=== PATIENT | male | born 1945 | race Caucasian/White ===

== ENCOUNTER → 2019-10-15 16:38 | Outpatient (BNVA) | payer MEDICARE, OTHER, SELFPAY | PROVIDERS: Family Provider Internal Medicine; Visit Provider Nurse Practitioner Family | DX: R05 Cough (principal) | CPT/HCPCS: 71046; 87400; 87635 ==

== ENCOUNTER → 2022-06-27 09:59 | Outpatient (BNVA) | payer OTHER, SELFPAY | PROVIDERS: Family Provider Internal Medicine; PCP Family Medicine; Visit Provider Orthopaedic Surgery | DX: M54.50 Low back pain, unspecified (principal) | CPT/HCPCS: 72110; 99204 ==

== ENCOUNTER 2022-07-10 12:09 | Day surgery (SDC) | payer OTHER, SELFPAY ==
[2022-07-07 10:07] VITALS: BMI 27.0
--- NOTE | 2022-07-07 10:15 | ECG_ITS ---
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 Measurements Intervals [place] Rate: 68 P: 5 AL: 157 QRS: -7 QRSD: 95 T: 46 QT: 399 QTc: 427 Interpretive Statements SINUS RHYTHM WITH SINUS ARRHYTHMIA No previous ECG available for comparison Electronically Signed On 07-07-2022 17:02:04 BIOMATHEMATICIAN by Ines Messina M.D. [id number]
--- NOTE | 2022-07-07 14:36 | P.ANESASSM_ITS ---
Pre-Anesthetic Assessment Height/Weight: Height 1.73 m Weight 80.739 kg Operation Date: 07/10/22 15:00 Proposed Procedures p Neurostimulator Battery Exchange and lead removal 10780/20623/m54.50(Not Applicable) - DO bonilla Howe Stimulator lead Removal(Not Applicable) - Goldy Chavez DO Familial anesthetic complications: none Was Beta Karl taken within 24 hours: N/A Was Clonidine taken within 24 hours: N/A Social No alcohol and No tobacco Exam alert, oriented x 3, clear to auscultation bilaterally and regular rate & rhythm Airway Submandibular: within normal limits Cervical ROM: within normal limits Mallampati: Class II Dentition: full CV/HEM Hypertension Musc/skel Lower Back Pain Anesthetic Plan ASA status: 2 Anesthesia: General Medications/Allergies Home Medications Medication Instructions Recorded Confirmed Last Taken Type etodolac 400 mg tablet 400 mg PO BID 02/13/22 07/07/22 07/07/22 History tramadol 50 mg tablet 50 mg PO TID PRN pain #90 tabs 04/15/22 07/07/22 07/07/22 Rx Fiber Well PO QDAY 06/27/22 Unknown History acyclovir 200 mg capsule 200 mg PO QID 06/27/22 07/07/22 07/07/22 History losartan 25 mg tablet 25 mg PO DAILY 06/27/22 07/07/22 07/07/22 History Allergies Allergy/AdvReac Type Severity Reaction Status Date / Time finasteride [From Proscar] Allergy Severe ADR-Dizzine Verified 07/07/22 10:04 ss tamsulosin [From Flomax] Allergy Severe ADR-Dizzine Verified 07/07/22 10:04 ss [facility] Anesthesia Surgical History Status post hernia repair Family History Brother Cancer Social History Smoking and tobacco status: former smoker Data Anesthesia Cardiac Studies: No Data to Display
[2022-07-10] VITALS (11 sets, daily range): BP systolic 127–171; BP diastolic 58–109; PULSE 62–99; RESP 16–19; TEMP 36.1–36.6; O2SAT 96–99
--- NOTE | 2022-07-10 | XR_ITS ---
WS: [id number] XR thoracic spine 1V 88531 REASON FOR EXAM: removal of scs FINDINGS: Following removal of dorsal column stimulator, no radiopaque residual is identified over the lower th oracic spine. XR/XR thoracic spine 1V 26125 IMPRESSION: Status post dorsal column stimulator removal as above.
[2022-07-10] MEDS: sodium chloride 0.9% 1,000 ML 30 ML IV (12:35)
--- NOTE | 2022-07-10 13:08 | W.PM.OPSUD ---
Surgery/Procedure H&P Update DATE OF PROCEDURE: July 10, 2022 DATE H&P PERFORMED: 06/27/22 H&P UPDATE INFORMATION: I have reviewed H&P completed within last 30 days, I have examined patient prior to procedure and No changes to prior documentation PREOP DIAGNOSIS: Failed Hardware SCS PLANNED PROCEDURE: Operation Date: 07/10/22 15:00 Proposed Procedures p Stimulator lead Removal(Not Applicable) - Goldy Chavez DO
--- NOTE | 2022-07-10 13:31 | P.ANESUD_ITS ---
Pre-Anesthetic Update Pre-Anesthetic Assessment: Date of Surgery/Procedure: 07/10/22 Preop Maribell gnosis: Failed Hardware SCS Proposed Procedure: Operation Date: 07/10/22 15:00 Proposed Procedures p Stimulator lead Removal(Not Applicable) - Goldy Chavez, DO Any changes to Pre-Anesthetic Assessment?: No Last Intake: Intake Last Liquid Date 07/09/22 Last Liquid Time 18:00 Last Solid Date 07/09/22 Last Solid Time 18:00 Vitals: Temperature 97.6 F 07/10/22 12:26 Temperature Source Temporal Artery S can 07/10/22 12:26 Pulse Rate 94 07/10/22 12:26 Respiratory Rate 16 07/10/22 12:26 Blood Pressure 171/109 07/10/22 12:26 Blood Pressure Courtney n 129 07/10/22 12:26 Pulse Oximetry 97 07/10/22 12:26 Oxygen Delivery Me thod 07/10/22 12:26 Exam: Pre-Anes Outpt Exam: alert, oriented x 3, clear to auscultation bilaterally and regular rate & rhythm Cardiac Studies: No Data to Display
[2022-07-10] MEDS: ceFAZolin 2,000 MG in sodium chloride 0.9% (plus) 50 ML 100 MG IV (13:34)
[2022-07-10] MEDS: vancomycin 1,000 MG SDV 1000 MG XX (14:17)
--- NOTE | 2022-07-10 14:25 | SUR.OPER ---
1% LIDOCAINE WITH EPI 10ML WAS INJECTED INTO THE BACK.
--- NOTE | 2022-07-10 14:29 | P.OP_ITS ---
Operative Report Date of procedure: July 10, 2022 Pre-op diagnosis: Preop Diagnosis Failed Hardware SCS Post-op diagnosis: same Procedure done: 1. Removal of neurostimulator 2. Removal for battery of neurostimulator Surgeon: Goldy Chavez Line And Frame Poler: Sabino Bowens Line And Frame Poler: The salesperson surgical appliances, Sabino Bowens, OLIVER was needed for his expertise under the microscope. He was important and necessary throughout the procedure to complete in a safe and timely manner. He assisted with patient positioning prepping and draping tissue retraction suctioning of the operative field protection of the dural sac and tissue closure Procedure: 1. Removal of neurostimulator 2. Removal for battery of neurostimulator Patient is brought to the operative suite after undergoing anesthesia patient was placed prone on the operating room table. All areas appear well-padded. Patient was prepped and draped in sterile fashion. Skin incision is made over the battery. Once the battery was identified it was removed. Once the battery was moved attention was then brought to the neurostimulator. The wires were identified and traced to where they were tied into the soft tissues. The sutures were then cut. And then the neurostimulator wires were then pulled through and the C-arm was brought in to ensure that the wires were completely removed. Once all the wires were completely removed C-arm was showed that this was true and there were no wires present.
[2022-07-10] MEDS: racepinephrine 0.5 mL Neb (14:49)
[2022-07-10] MEDS: dexamethasone 4 mg/mL INJ INJECTION (14:57)
--- NOTE | 2022-07-10 15:30 | ANE.PACU2 ---
Inpatient post-anesthesia follow up: Airway intact: Yes Vital signs: Temperature 98 F Pulse Rate 77 Respiratory Rate 17 Blood Pressure 160/74 Pulse Oximetry 97 Oxygen Delivery Me thod Room Air Oxygen Flow Rate 2 Fraction of Inspir ed Oxygen Hydration adequate: Yes Nausea and vomiting: No Pain level: 1 Mental status: Baseline
== END 2022-07-10 16:00 | disposition home or self-care (01) ==
PROVIDERS: Family Provider Family Medicine; PCP Family Medicine; Visit Provider Orthopaedic Surgery
PROC: (CPT 63661; principal; 2022-07-10 14:50)
DX: T85.193A Other mechanical complication of implanted electronic neurostimulator, generator, initial encounter (principal); Y83.8 Other surgical procedures as the cause of abnormal reaction of the patient, or of later complication, without mention of misadventure at the time of the procedure; I10 Essential (primary) hypertension; Z87.891 Personal history of nicotine dependence; Z79.82 Long term (current) use of aspirin
CPT/HCPCS: 63661; 63688; 72020; 76000; 93005; J0690; J1100; J2405; J2704; J3010; J3370; J7030

== ENCOUNTER → 2022-07-25 13:04 | Outpatient (BNVA) | payer OTHER, SELFPAY | PROVIDERS: Family Provider Family Medicine; PCP Family Medicine; Visit Provider Orthopaedic Surgery | DX: Z47.89 Encounter for other orthopedic aftercare (principal) | CPT/HCPCS: 99024 ==

== ENCOUNTER 2022-08-30 13:57 | Outpatient (CLI) | payer OTHER, SELFPAY ==
--- NOTE | 2022-08-30 14:30 | MR_ITS ---
WS: [id number] MRI LUMBAR SPINE NONCONTRAST TECHNIQUE: Sagittal T1, T2 and STIR imaging. Axial T1 and T2 imaging. CLINICAL INFORMATION: low back pain COMPARISON: MRI 6 018 FINDINGS: Mild lumbar curve. No acute compression. 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 No a cute compression fractures. Grade 1 anterolisthesis measures 12 mm unchanged. Lumbar scoliosis. Small disc protrusions T11-T12 and T12-L1. L1-L2: Mild disc bulging with slight narrowing of the LEFT greater than RIGHT subarticular recess. Mo derate facet arthropathy. Moderate LEFT foraminal narrowing. Moderate facet arthropathy. L2-L3: Mild disc bulging with osteophytic ridging. Narrowing of the RIGHT greater than LEFT subarticu lar recess. Mild bilateral foraminal narrowing. Moderate facet arthropathy. L3-L4: Mild disc bulging with osteophytic ridging. Narrowing of the RIGHT subarticular recess. Modera te facet arthropathy. Moderate RIGHT foraminal narrowing. LEFT foramen is patent. L4-L5: Mild disc bulging with osteophytic ridging. Slight effacement of ventral thecal sac. Moderate to advanced facet arthropathy. Moderate RIGHT greater than LEFT foraminal narrowing. L5-S1: Grade 2 anterolisthesis with spondylolysis. Moderate to severe bilateral foraminal narrowing. Slight impingement on the traversing RIGHT greater than LEFT S1 nerve roots. Visualized pelvic bony structures: Normal. Paravertebral soft tissues: Normal. RIGHT renal cyst measuring 5.2 cm MR/MR lumbar spine wo con* [id number] IMPRESSION:Overall no significant interval changes since MRI 2018 1. Grade 2 anterolisthesis L5 on S1 with degenerative spondylolysis. This is s table compared to previous measuring 12 mm. 2. Moderate to severe bilateral L5-S1 bony foraminal narrowing. Disc osteophyt e complex L5-S1 impinges the traversing right S1 nerve root unchanged. 3. Right pericentral disc osteophyte protrusion L3-4 impinges the traversing R IGHT L4 nerve root and exiting right L3 nerve root with moderate right foramina l narrowing. This is unchanged. 4. Moderate bilateral L4-5 foraminal narrowing contacts the exiting L4 nerve r oots bilaterally. 5. Moderate to advanced facet arthropathy L3-L4 L4-L5 and L5-S1. 6. Lumbar scoliosis.
== END 2022-08-30 13:58 | disposition home or self-care (01) ==
PROVIDERS: PCP Family Medicine; Visit Provider Orthopaedic Surgery
DX: M51.26 Other intervertebral disc displacement, lumbar region (principal); M47.816 Spondylosis without myelopathy or radiculopathy, lumbar region; M41.86 Other forms of scoliosis, lumbar region
CPT/HCPCS: 72148

== ENCOUNTER → 2022-09-05 13:26 | Outpatient (BNVA) | payer OTHER, SELFPAY | PROVIDERS: Family Provider Family Medicine; PCP Family Medicine; Visit Provider Orthopaedic Surgery | DX: Z78.9 Other specified health status (principal) | CPT/HCPCS: 99024; 99212 ==

== ENCOUNTER → 2022-09-07 09:58 | Outpatient (BNVA) | payer OTHER, SELFPAY | PROVIDERS: Family Provider Family Medicine; PCP Family Medicine; Visit Provider Orthopaedic Surgery | DX: M48.061 Spinal stenosis, lumbar region without neurogenic claudication (principal) | CPT/HCPCS: 99024; 99214 ==

== ENCOUNTER → 2022-10-26 08:29 | Outpatient (BNVA) | payer OTHER, SELFPAY | PROVIDERS: Family Provider Family Medicine; PCP Family Medicine; Visit Provider Orthopaedic Surgery | DX: M48.062 Spinal stenosis, lumbar region with neurogenic claudication (principal); Z01.818 Encounter for other preprocedural examination | CPT/HCPCS: 36415; 80048; 85025; 99214 ==

== ENCOUNTER 2022-11-13 10:52 | Outpatient (CLI) | payer OTHER, SELFPAY | END 2022-11-13 10:53 | disposition home or self-care (01) | LOC: RT 11-16 10:53 | PROVIDERS: PCP Family Medicine; Visit Provider Orthopaedic Surgery | DX: Z01.810 Encounter for preprocedural cardiovascular examination (principal) | CPT/HCPCS: 93005 ==

== ENCOUNTER 2022-11-20 13:38 | Inpatient (IN) | payer OTHER, SELFPAY ==
--- NOTE | 2022-11-13 08:50 | ECG_ITS ---
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 Measurements Intervals [place] Rate: 60 P: -9 ND: 167 QRS: -22 QRSD: 85 T: 18 QT: 390 QTc: 392 Interpretive Statements SINUS RHYTHM BORDERLINE LEFT AXIS DEVIATION [QRS AXIS < -20] Compared to ECG 07/07/2022 10:15:09 Sinus arrhythmia no longer present Electronically Signed On 11-14-2022 0:25:20 CDT by Annabel Aldridge M.D. [id number]
--- NOTE | 2022-11-13 09:01 | ANES.PREANE2 ---
Pre-Anesthetic Assessment Height/Weight: Height 1.73 m Weight 75.75 kg Operation Date: 11/20/22 14:25 Proposed Procedures p L3 to pelvis fusion with decompression from L3-S1,49274,11091g1,62618,93910,2284,M48.062(Not Applicable) - Goldy Chavez DO s Lumbar Spine Decompression(Not Applicable) - Goldy Chavez DO Familial anesthetic complications: None Social No alcohol and No tobacco Exam alert, oriented x 3, clear to auscultation bilaterally and regular rate & rhythm Airway Mallampati: Class I Dentition: full CV/HEM Hypertension Anesthetic Plan ASA status: 2 Anesthesia: General Other: A-line Risk of > 500 ml blood loss (7ml/kg in children): Yes, adequate IV access and fluids planned Medications/Allergies Home Medications Medication Instructions Recorded Confirmed Last Taken Type etodolac 400 mg tablet 400 mg PO BID 02/13/22 11/13/22 11/13/22 History Fiber Well 1 tab PO QDAY 06/27/22 11/13/22 11/13/22 History losartan 25 mg tablet 25 mg PO DAILY 06/27/22 11/13/22 11/13/22 History tramadol 50 mg tablet 50 mg PO TID PRN pain #90 tabs 07/11/22 11/13/22 11/13/22 Rx cholecalciferol (vitamin D3) 50 50 mcg PO DAILY 10/31/22 11/13/22 11/13/22 History mcg (2,000 unit) capsule Allergies Allergy/AdvReac Type Severity Reaction Status Date / Time finasteride [From Proscar] Allergy Severe ADR-Dizzine Verified 11/13/22 08:36 ss tamsulosin [From Flomax] Allergy Severe ADR-Dizzine Verified 11/13/22 08:36 ss [facility] Anesthesia Surgical History Status post hernia repair Family History Brother Cancer Social History Smoking and tobacco status: former smoker Data Anesthesia Cardiac Studies: No Data to Display
[2022-11-20] VITALS (26 sets, daily range): BP systolic 105–157; BP diastolic 50–96; PULSE 57–91; RESP 12–24; TEMP 36.3–37.8; O2SAT 92–100
--- NOTE | 2022-11-20 | XR_ITS ---
WS: [id number] Lumbar spine, C-arm fluoroscopy, 11/20/2022 Clinical Data: thoracic and lumbar spine fusion Comparison: Lumbar spine, 06/27/2022 Findings: Dr. Chavez performed on a extensive thoracolumbar sacral fusion with bilateral pedicle screws and conn ecting rods. There are oblique screws fusing the SI joints. XR/XR lumbar spine 2-3V* [id number] Impression: Posterior thoracolumbar sacral fusion.
--- NOTE | 2022-11-20 08:19 | P.HPUD_ITS ---
Surgery/Procedure H&P Update DATE OF PROCEDURE: November 20, 2022 DATE H&P PERFORMED: 10/26/22 H&P UPDATE INFORMATION: I have reviewed H&P completed within last 30 days, I have examined patient prior to procedure and No changes to prior documentation PREOP DIAGNOSIS: Lumbar stenosis with neurogenic claudication PLANNED PROCEDURE: Operation Date: 11/20/22 11:40 Proposed Procedures p T10 to pelvis fusion with decompression from L3- S1,39991,00453d3,72510,99631,2284,M48.062(Not Applicable) - DO bonilla Hoew Lumbar Spine Decompression(Not Applicable) - Goldy Chavez DO
[2022-11-20] MEDS: sodium chloride 0.9% 1,000 ML 30 ML IV (08:22)
[2022-11-20] MEDS: ceFAZolin 2,000 MG in sodium chloride 0.9% (plus) 50 ML 100 MG IV ×2 (09:09→17:28)
[2022-11-20] MEDS: lidocaine-epi 1% 20 mL INJ INJECTION (09:51)
[2022-11-20] MEDS: vancomycin 1,000 MG SDV 1000 MG XX (09:51)
--- NOTE | 2022-11-20 09:54 | P.ANESUD_ITS ---
Pre-Anesthetic Update Pre-Anesthetic Assessment: Date of Surgery/Procedure: 11/20/22 Preop Maribell gnosis: Lumbar stenosis with neurogenic claudication Proposed Procedure: Operation Date: 11/20/22 11:40 Proposed Procedures p T10 to pelvis fusion with decompression from L3- S1,22648,06002y0,90845,12487,2284,M48.062(Not Applicable) - Goldyteto Chavez, DO s Lumbar Spine Decompression(Not Applicable) - Goldyteto Chavez, DO Any changes to Pre-Anesthetic Assessment?: No Last Intake: Intake Last Liquid Date 11/19/22 Last Liquid Time 19:30 Last Solid Date 11/19/22 Last Solid Time 16:30 Labs Last 48hrs: Blood Bank 11/20/22 08:35 Blood Type A Positive Rho(D) Type Positive Antibody Screen Negative Vitals: Temperature 97.9 F 11/20/22 08:18 Temperature Source Temporal Artery S can 11/20/22 08:18 Pulse Rate 91 11/20/22 08:18 Respiratory Rate 16 11/20/22 08:18 Blood Pressure 145/96 11/20/22 08:18 Blood Pressure Courtney n 112 11/20/22 08:18 Pulse Oximetry 96 11/20/22 08:18 Oxygen Delivery Me thod Room Air 11/20/22 08:18 Exam: Pre-Anes Outpt Exam: alert, oriented x 3, clear to auscultation bilaterally and regular rate & rhythm Cardiac Studies: No Data to Display
[2022-11-20] MEDS: heparin, porcine 1,000 unit/mL INJ 10 mL 10000 UNIT IRRIGATION (12:00)
--- NOTE | 2022-11-20 13:31 | P.OP_ITS ---
Operative Report Date of procedure: November 20, 2022 Pre-op diagnosis: Preop Diagnosis Lumbar stenosis with neurogenic claudication Procedure: 1.? T10 to pelvis posterior fusion 2. T10 to S1 instrumentation 3. Lumbopelvic instrumentation 4. Right open SI joint fusion 5. Left open SI joint fusion 6. L3/4 laminectomy with partial facetectomy 7. L4/5 laminectomy with partial facetectomy 8. L5/S1 laminectomy with partial facetectomy 9. computer navigation/ stereotactic of spine 10. Bone marrow aspirate right iiac crest 11. Use of autograft 12. use of allograft Patient is brought to the operative suite.? After undergoing anesthesia, the patient had neuro monitoring attached.? Patient was then placed in the prone position on the Faustino table.? All areas of impingement were well-padded.? Patient was then prepped and draped in the normal sterile fashion.? ?Skin incision was then made over the [id number].? Subperiosteal dissection was made out to the transverse processes of T10, T11, T12, L1, L2, L3 and L4 and L5 and out to the sacral ala's and dissecting out the sacroiliac joints.? The [employer] bone marrow aspirate kit was used to aspirate bone marrow aspirate from the right iliac crest.? This was done by using the sharp probe to open up the bone.? Aspiration was performed and then the blunt probe was then used to d issect down to through the bone tunnel.? An aspirating well drawn back a millimeter approximately 20 cc of bone marrow aspirate was used.? And mixed with the allograft and autograft bone that will be used. Extension was brought to placing the pins for the computer navigation fiducial.? This was done by placing 2 iliac crest pins in the right side.? These pins were later removed within the case.? Skin incision made in 2 pins were placed fiducial was attached to these 2 pins.? And then the C-arm was brought in and spun around the patient and the information from the C-arm was then loaded into the computer through the fiducials.? And later used to place the pedicle screws. The technique for placing the pedicle screws was to use a drill followed by the gearshift probe linked to computer navigation.? Followed by the ball probe to feel the superior inferior medial lateral mitchell of the pedicles.? Then placement of the screws linked to computer navigation.? Was done at each pedicle.? Screws were placed at T10 bilaterally, T11 bilaterally, T12 bilaterally, L1 bilaterally, L2 bilaterally, L 3 bilaterally and L4? bilaterally, L5 bilaterally and S1 bilaterally. Extension was brought to placing the iliac screws.? This was done by using the gearshift linked to computer navigation gearshift was placed just distal to the S1 foramen and lateral.? Was driven through the sacral ala across the iliosacral joint and into the iliac crest.? This was done bilaterally.? And then a 80 mm 9.5 mm iliac screw on the left and a 90 mm screw on the right was placed. Next attention was brought to doing the open SI joint fusions on both the right and the left side.? This was done by identifying the SI joint scraping out the SI joint and packing it with bone graft as well as passing a wire across to the iliac joint that has bone graft capabilities the wire was then drilled and bone graft was packed into this hole and then the screw which is in sacroiliac screw was brought across the joint fusing the joint.? This was done on both the right and the left sides. Next attention was brought to performing the laminectomy of L3.? This was done using the high-speed bur Kerrisons and curettes.? Once the lamina was removed and then attention was brought to performing a Rightpartial facetectomy .? This was done again using the high-speed bur curettes and Kerrisons.? The ligamentum flavum was taken down bilaterally from L3 to L4.? ? ? The L4 nerve was decompressed as it passed around the L4 pedicle.?? The L3 nerve was identified as it traversed through the L3/4 foramen.? ? Next attention was brought to performing the laminectomy of L4.? This was done using the high-speed bur Kerrisons and curettes.? Once the lamina was removed and then attention was brought to performing a Rightpartial facetectomy .? This was done again using the high-speed bur curettes and Kerrisons.? The ligamentum flavum was taken down bilaterally from L4 to L5.? ? ? The L5 nerve was decompressed as it passed around the L5 pedicle.?? The L4 nerve was identified as it traversed through the L4/5 foramen.? ? Next attention was brought to performing the laminectomy of L5.? This was done using the high-speed bur Kerrisons and curettes.? Once the lamina was removed and then attention was brought to performing a Rightpartial facetectomy .? This was done again using the high-speed bur curettes and Kerrisons.? The ligamentum flavum was taken down bilaterally from L5 to S1.? ? ? The S1 nerve was decompressed as it passed around the S1 pedicle.?? The L5 nerve was identified as it traversed through the L5/S1 foramen.? ? Attention was then brought to attaching the rods to the screws placed in the T10 bilaterally, T11 bilaterally, T12 bilaterally, L1 bilaterally, L2 bilaterally, L3 bilaterally, L4 bilaterally L5 bilaterally S1 bilaterally.? The sj was also connected to the screws providing the lumbopelvic aspect of the lumbopelvic fixation.? Caps were torqued into position. Locking the construct in place. Wound was copiously irrigated and then attention was brought to decorticating the facets and transverse processes laterally.? Bone that was taken down from the lamina was used along with osteoamp fibers and sponges were packed into the lateral gutters along the facet joints.? This was done bilaterally. Wound was then closed in a layered fashion starting with the thoracolumbar fascia.? 0-vicryl was used the sub cutaneous tissue was closed with 2-0 vicryl and skin with 4-0 monocryl.? Glue was then used to seal the skin and a steril dressing was applied.? Patient was then placed in the supine position. The endotracheal tube was removed and patient was transferred to the PACU in stable condition.
--- NOTE | 2022-11-20 13:55 | SUR.PHASEI ---
patient into pacu on floor bed, asleep. patient has hemovac drain in place, draining. simple mask in place with sat at 94%. patient has scd in place. maldonado draining clear yellow urine.
--- NOTE | 2022-11-20 14:08 | SUR.PHASEI ---
art line removed. hemovac drain emptied, 100ml blood.
--- NOTE | 2022-11-20 14:26 | ANE.PACU2 ---
Inpatient post-anesthesia follow up: Airway intact: Yes Vital signs: Temperature 98.5 F Pulse Rate 63 Respiratory Rate 18 Blood Pressure 105/57 Pulse Oximetry 97 Oxygen Delivery Me thod Nasal Cannula Oxygen Flow Rate 3 Fraction of Inspir ed Oxygen Hydration adequate: Yes Nausea and vomiting: No Pain level: 4 Mental status: Baseline
--- NOTE | 2022-11-20 14:26 | SUR.PHASEI ---
[facility] and working.
[2022-11-20] MEDS: ketorolac 30 mg/mL INJ IVP (17:28)
[2022-11-20] MEDS: lactated ringers 1,000 ML 90 ML IV (17:28)
[2022-11-20] MEDS: HYDROcodone-acetaminophen 5-325 mg Tablet PO (18:51)
[2022-11-20] MEDS: morphine 4 mg/mL SDV 1 mL 2 MG IVP (20:13)
[2022-11-20] MEDS: docusate sodium 100 mg Capsule PO (20:14)
--- NOTE | 2022-11-20 20:29 | PC.NURSE ---
Patient c/o pain not relieved by Toradol, Morphine or Dierks. Patient refusing to try Tramadol, stating that it won't help. Rates pain 8/. Dr. Chavez notified and ordered Oxy 10-20 mg q4hr PRN.
[2022-11-20] MEDS: oxyCODONE 5 mg IR Tab/Cap 10 MG PO (21:05)
[2022-11-20] MEDS: lanolin oint 7 gm 1 APPLIC TOPICAL (21:37)
[2022-11-21] VITALS (15 sets, daily range): BP systolic 92–162; BP diastolic 24–72; PULSE 66–85; RESP 15–18; TEMP 36.4–37.1; O2SAT 92–99
[2022-11-21] MEDS: ceFAZolin 2,000 MG in sodium chloride 0.9% (plus) 50 ML 100 MG IV ×2 (00:33→08:10)
[2022-11-21] MEDS: oxyCODONE-APAP 10-325 mg Tablet PO ×5 (00:34→19:29)
[2022-11-21] MEDS: lactated ringers 1,000 ML 90 ML IV ×2 (00:34→16:54)
[2022-11-21] MEDS: morphine 4 mg/mL SDV 1 mL 2 MG IVP (02:45)
[2022-11-21 06:39] LABS: Hemoglobin 9.2 g/dL (11.7-16.6)
--- NOTE | 2022-11-21 07:16 | P.PN_ITS ---
Subjective Subjective: POD 1 Patient resting comfortably with family present. Had a difficult night with pain control. Reports back and right leg pain. Denies shortness of breath, chest pain, headaches. Patient is difficult of hearing. Vitals/I&O/Wt Last Vital Signs Temp 98.4 F 11/21/22 05:20 Pulse 66 11/21/22 05:20 Resp 17 11/21/22 05:20 BP 92/51 11/21/22 05:52 Pulse Ox 95 11/21/22 05:20 O2 Del Method Nasal Cannula 11/21/22 05:20 O2 Flow Rate 1.5 11/21/22 05:20 11/20/22 11/21/22 11/21/22 22:59 06:59 14:59 Intake Total 50 / 788 689 / 1477 Output Total 370 / 1045 730 / 1775 Balance -320 / -257 -41 / -298 Physical Exam Narrative: Patient presents alert and oriented x3 with a good general appearance normal mood and affect. Normal coordination normal stability. Mild tenderness around the incisional site with the incision appear to be clean and dry with Hemovac intact. Reported 850 mL out Hemovac. No signs of erythema or drainage. No signs of infection. Patient denies any fevers or chills. 4/5 motor strength both lower extremities with negative straight leg raise bilaterally. Calves are supple no medial thigh tenderness. Pulses are 2+ at the dorsalis pedis and posterior tibial region. Good capillary refill throughout normal sensation light touch both lower extremities. Urinary Catheter Management: Hatfield: Cath Placed During This Visit: yes Reason for Continuing Indwelling Catheter: Required Immobilization for Trauma or Surgery or Anesthesia Urinary Catheter Date of Insertion: 11/20/22 Urinary Catheter Time of Insertion: 09:20 Data 11/21/22 06:19 A&P Assessment and plan (1) Acute blood loss as cause of postoperative anemia: Discussed with the family and the nursing staff to encourage incentive spirometry for pulmonary toilet. We will slowly make changes to his pain medication to ensure were not overmedicating. Physical therapy to work on mobilization. We will discontinue Hatfield catheter. We will leave the Hemovac drain to gravity. We will have criminal justice social worker consulted for placement or home health care. We will bolus 500 mL normal saline for his hypotension. Repeat H&H in the morning. (2) Status post lumbar spinal fusion: Attestations Medical Necessity Statement*: Continue to gain better pain control and stabilize medically Coding Level of Care Code Acute Code for Chg Fwd Diagnoses Acute blood loss as cause of postoperative anemia D62 Status post lumbar spinal fusion Z98.1
[2022-11-21] MEDS: sodium chloride 0.9% 500 ML 999 ML IV (07:27)
[2022-11-21] MEDS: cholecalciferol (vitamin D3) 1,000 unit Tablet 2000 UNIT PO (08:08)
[2022-11-21] MEDS: docusate sodium 100 mg Capsule PO ×2 (08:08→17:10)
[2022-11-21] MEDS: losartan 50 mg Tablet 25 MG PO (08:22)
--- NOTE | 2022-11-21 10:12 | PC.CHAP ---
Pastoral Care Encounter/Spiritual Assessment Type of Contact [] Declined bottling attendant visit [] Patient/Family/Request visit [] Outpatient visit [] Follow-up visit [] Physician referral [] Code/Alert [] Routine visit [] Staff referral [] Actively dying [x] Patient sleeping [] Family support [] [] Out of room [] Palliative care [] [] Receiving care in room [] Pre-surgical visit [] Trauma [] Long length of stay [] ICU visit [] Other: Relational/Emotional Strength [] Patient feels connected with others/family/visitors/staff [] Distress [] Loneliness/isolation [] Abandonment Spirituality of Patient [] Person of Cindy [] Attends Mosque of their Cindy [] Believes in Prayer [] Reads Bible or Yarsani materials [] There are Spiritual issues to be addressed Nurse Manager Interventions [] Prayer [] Active listening [] Non-anxious presence [] Spiritual/emotional support [] Crisis/trauma care [] Spiritual counseling [] Bereavement support [] Provided bereavement packet [] Provided Bible/devotional materials [] Provided toy/stuffed animal, coloring book to patient or family member [] Provided Communion [] Anointing/Sterling [] Salvation [] Completed spiritual assessment [] Other: Impact on Illness or Injury [] Angry [] Fearful [] Anxious [] Often cries [] Exhaustion [] Unable to work [] Unable to attend jainism [] Unable to walk/stand [] Unable to read [] Unable to drive [] Unable to eat/drink [] Unable to sleep [] Unable to be with family [] Patient intubated [] Other: Summary Time spent with patient
[2022-11-21] MEDS: ondansetron 2 mg/ML SDV 2 mL 4 MG IVP (10:37)
[2022-11-21] MEDS: ketorolac 30 mg/mL INJ IVP (16:58)
[2022-11-22] VITALS (19 sets, daily range): BP systolic 109–165; BP diastolic 57–84; PULSE 71–88; RESP 15–18; TEMP 36.8–37.9; O2SAT 85–99
[2022-11-22] MEDS: lactated ringers 1,000 ML 90 ML IV ×2 (01:13→14:20)
[2022-11-22] MEDS: oxyCODONE-APAP 10-325 mg Tablet PO ×2 (01:13→05:46)
[2022-11-22 04:54] LABS: Hemoglobin 8.3 g/dL (11.7-16.6)
--- NOTE | 2022-11-22 05:58 | PC.NURSE ---
Addendum entered by Caryl Aviles RN 11/22/22 06:16: 475 ml urine returned via straight cath. Original Note: Patient voided 200 ml earlier in shift. Patient has since attempt to void twice with no success. Bladder scan shows [address] Chavez ordered straight cath x1.
--- NOTE | 2022-11-22 06:35 | PM.PN ---
Subjective Subjective: POD 2 Patient resting comfortably. Appears very somnolent this morning no family is present. States he did minimal walking yesterday. Had a difficult time avoiding he was in and out cathed. Denies any dizziness lightheadedness headaches. Denies any shortness of breath or chest pain. Vitals/I&O/Wt Last Vital Signs Temp 99.4 F 11/22/22 04:00 Pulse 88 11/22/22 04:00 Resp 16 11/22/22 05:46 BP 110/57 11/22/22 04:00 Pulse Ox 92 11/22/22 04:00 O2 Del Method Room Air 11/22/22 04:00 O2 Flow Rate 0.5 11/21/22 08:50 11/21/22 11/21/22 11/22/22 14:59 22:59 06:59 Intake Total 1668 / 1668 748.5 / 2416.5 Output Total 225 / 225 525 / 750 535 / 1285 Balance 1443 / 1443 -525 / 918 213.5 / 1131.5 Physical Exam Narrative: Patient presents alert and oriented x3 with a good general appearance normal mood and affect.? Normal coordination normal stability.? Mild tenderness around the incisional site with the incision appear to be clean and dry with Hemovac intact.? Reported 250 mL out Hemovac.? No signs of erythema or drainage.? No signs of infection.? Patient denies any fevers or chills.? 4/5 motor strength both lower extremities with negative straight leg raise bilaterally.? Calves are supple no medial thigh tenderness.? Pulses are 2+ at the dorsalis pedis and posterior tibial region.? Good capillary refill throughout normal sensation light touch both lower extremities. GI: OTHER: Abdomen is soft slightly distended but positive bowel sounds throughout. Urinary Catheter Management: Hatfield: Cath Placed During This Visit: yes, but has since been removed by the nurse Reason for Continuing Indwelling Catheter: Decision to DC Catheter Urinary Catheter Date of Insertion: 11/20/22 Urinary Catheter Time of Insertion: 09:20 Date Urinary Catheter Removed: 11/21/22 Time Urinary Catheter Discontinued: 07:30 Data 11/22/22 04:19 A&P Assessment and plan (1) Status post lumbar spinal fusion: Discontinue Hemovac drain. Have physical therapy work on mobilization today. Reduce the oxycodone tens to 1 every 4-6 hours to see if that will help maintain better pain control and less overmedicated state. Up in the chair today. Will await child protective services social worker for placement. (2) Acute blood loss as cause of postoperative anemia: Attestations Medical Necessity Statement*: We will await placement. Coding Level of Care Code Acute Code for Chg Fwd Diagnoses Status post lumbar spinal fusion Z98.1 Acute blood loss as cause of postoperative anemia D62
[2022-11-22] MEDS: ketorolac 30 mg/mL INJ IVP ×2 (08:35→23:15)
[2022-11-22] MEDS: cholecalciferol (vitamin D3) 1,000 unit Tablet 2000 UNIT PO (08:48)
[2022-11-22] MEDS: docusate sodium 100 mg Capsule PO ×2 (08:48→18:32)
[2022-11-22] MEDS: losartan 50 mg Tablet 25 MG PO (08:48)
[2022-11-22] MEDS: ondansetron 2 mg/ML SDV 2 mL 4 MG IVP (09:41)
[2022-11-22] MEDS: alum-mag-hydroxide-sime 30 mL UDC PO (09:42)
--- NOTE | 2022-11-22 11:11 | PC.NURSE ---
hemavac-emptied 30ml of blood from hemavac. Hemavac removed from clients back. Client tolerated without difficulty.
[2022-11-22 15:59] LABS: Basophils # 0.1 10^3/uL (0.0-0.1); Basophils % 0.6 %; Eosinophils # 0.1 10^3/uL (0.0-0.8); Hematocrit 25.7 % (42.0-52.0); Hemoglobin 8.1 g/dL (11.7-16.6); Lymphocytes # 0.6 10^3/uL (0.8-4.8); Lymphocytes % 7.1 %; Mean Corpuscular HGB Conc 31.5 g/dL (30.0-36.0); Mean Corpuscular Hemoglobin 31.8 pg (28.0-34.0); Mean Corpuscular Volume 100.8 fl (80-94); Mean Platelet Volume 11.3 fL (7.4-10.4); Monocytes # 0.5 10^3/uL (0.2-0.9); Neutrophils # 7.03 10^3/uL (1.8-7.7); Neutrophils % 84.9 %; Nucleated Red Blood Cells % 0 %; Platelet Count 133 10^3/cmm (130-400); Red Blood Count 2.55 10^6/uL (4.1-5.3); Red Cell Distribution Width 12.7 % (12.1-15.1); White Blood Count 8.3 10^3/uL (4.0-10.0)
[2022-11-22] MEDS: oxyCODONE-APAP 10-325 mg Tablet 1 TAB PO (16:04)
[2022-11-22 16:13] LABS: Anion Gap 10.2 (5-19); Blood Urea Nitrogen 21 mg/dL (8-23); Carbon Dioxide 26 mmol/L (22-29); Chloride 103 mmol/L (98-107); Potassium 4.2 mmol/L (3.5-5.1)
[2022-11-22 16:18] LABS: Calcium 7.8 mg/dL (8.5-10.5); Glucose 121 mg/dL (65-115); Osmolality Calculated 284 mOsm/kg (285-295); Sodium 135 mmol/L (136-145)
--- NOTE | 2022-11-22 17:59 | PC.NURSE ---
Patient's at bedside states patient is type O negative and insists upon it. Educated on the observation of patient through transfusion and will note any reactions within the first 15 minutes as well as throughout the blood transfusion.
--- NOTE | 2022-11-22 18:11 | PC.NURSE ---
1 degree increase in temperature during transfusion, but patient states he feels fine and wants to continue.
[2022-11-22] MEDS: morphine 4 mg/mL SDV 1 mL 2 MG IVP (20:27)
[2022-11-23] VITALS (15 sets, daily range): BP systolic 131–160; BP diastolic 64–80; PULSE 56–83; RESP 15–22; TEMP 36.7–37.6; O2SAT 93–99
[2022-11-23] MEDS: oxyCODONE-APAP 10-325 mg Tablet 1 TAB PO ×2 (00:09→05:37)
--- NOTE | 2022-11-23 00:27 | XRR_ITS ---
PROCEDURE INFORMATION: Exam: XR Chest Exam date and time: 11/22/2022 11:43 PM Age: 76 years old Clinical indication: Shortness of breath; Prior surgery; Surgery date: 3-7 days post-operative; Surgery type: Spinal fusion 11/20/2022; Patient HX: SOB with bilateral crackles. ; Additional info: Sob/ crackles in lung bases TECHNIQUE: Imaging protocol: Radiologic exam of the chest. Views: 1 view. COMPARISON: CR XR chest 2V* [id number] 10/15/2019 4:51 PM FINDINGS: Lungs: Progressive diffuse interstitial lung densities. Increasing uplx-rosksxl-ofyj-right patchy bibasilar infiltrates. Pleural spaces: No pneumothorax. No definite effusion. Heart/Mediastinum: The heart is mildly enlarged. Bones/joints: Thoracolumbar fusion. XR/XR chest 1V portable [id number] IMPRESSION: Progressive areas of diffuse edema with increasing areas of jkgq-gcbuwmt-hmcl-right lung base atelectasis, edema, or airspace disease.
[2022-11-23] MEDS: FUROsemide 10 mg/mL SDV 2mL 20 MG IVP (00:35)
[2022-11-23] MEDS: alum-mag-hydroxide-sime 30 mL UDC PO (01:04)
[2022-11-23 06:56] LABS: Hematocrit 28.2 % (42.0-52.0); Hemoglobin 9.2 g/dL (11.7-16.6)
--- NOTE | 2022-11-23 07:18 | PC.NURSE ---
Orders changed per YURIY Varela. D/c'd all narcotics except hydrocodone to be used at last resort. Start with oral tylenol, then tramadol, then toradol. Patient to be up walking mclaughlin with PT. Wants patient to dictate pain, in lieu of spouse. Notify Sabino with any questions. Hospitalist to be consulted for any medical questions.
--- NOTE | 2022-11-23 07:31 | PM.PN ---
Subjective Subjective: Appears toPOD 3 Patient very sleepy today be overmedicated. His family is present this morning. Patient has not been very mobile. And short of breath. Patient has not had a bowel movement in a number of days. Vitals/I&O/Wt Last Vital Signs Temp 98.6 F 11/23/22 03:54 Pulse 64 11/23/22 03:54 Resp 18 11/23/22 05:37 BP 131/64 11/23/22 03:54 Pulse Ox 98 11/23/22 05:37 O2 Del Method Nasal Cannula 11/23/22 03:54 O2 Flow Rate 2 11/23/22 00:21 11/22/22 11/23/22 11/23/22 22:59 06:59 14:59 Intake Total 890 / 2670 0 / 2670 Output Total 400 / 790 1500 / 2290 Balance 490 / 1880 -1500 / 380 Physical Exam Narrative: Tmax 100.2 Patient appears comfortable but overmedicated. He does follow commands but is very somnolent. O2 via nasal cannula with Hatfield catheter present. Mild tenderness around the incisional site with the incision appear to be clean and dry. No signs of erythema or drainage. No signs of infection. 4/5 motor strength both lower extremities with negative straight leg raise bilaterally. Calves are supple no medial thigh tenderness. Pulses are 1+ at the dorsalis pedis and posterior tibial region. Good capillary refill throughout normal sensation light touch both lower extremities. GI: OTHER: Soft with positive bowel sounds but appears distended. Urinary Catheter Management: [place]: Cath Placed During This Visit: yes, but has since been removed by the nurse Reason for Continuing Indwelling Catheter: Acute Urinary Retention or Obstruction Urinary Catheter Date of Insertion: 11/22/22 Urinary Catheter Time of Insertion: 14:52 Date Urinary Catheter Removed: 11/21/22 Time Urinary Catheter Discontinued: 07:30 Data 11/23/22 06:42 11/22/22 15:48 CXR: Radiologist's impression: XR/XR chest 1V portable [id number] IMPRESSION: Progressive areas of diffuse edema with increasing areas of evut-swnoupt-wmbp-right lung base atelectasis, edema, or airspace disease. A&P Assessment and plan (1) Status post lumbar spinal fusion: We will discontinue morphine, oxycodone and hydrocodone until patient becomes more awake and responsive. Once he is awake and more responsive we will begin with Tylenol, Toradol for better pain control and will titrate up from there based on his mental status. We will consult hospitalist team to help with medical management. Encourage incentive spirometer for pulmonary toilet. He is struggled with urine retention but will try and discontinue the Hatfield catheter once patient is more alert responsive and mobile with physical therapy. Also discussed with the nurse for laxative choice to help with bowel movement. Hold discharge to group home until patient is more medically optimized. Patient is high risk of bleeding and have used SCDs for DVT prophylaxis and due to acute blood loss anemia. If the patient does not become more ambulatory we may have to use transition to Lovenox. Will discuss with the medical team. (2) Acute blood loss as cause of postoperative anemia: (3) Atelectasis of both lungs: (4) Urine retention: Attestations Medical Necessity Statement*: Urine retention and bilat atelectasis Coding Level of Care Code Acute Code for Chg Fwd Diagnoses Status post lumbar spinal fusion Z98.1 Acute blood loss as cause of postoperative anemia D62 Atelectasis of both lungs J98.11 Urine retention R33.9
[2022-11-23 08:03] LABS: Basophils % 0.5 %; Eosinophils # 0.1 10^3/uL (0.0-0.8); Hematocrit 28.3 % (42.0-52.0); Hemoglobin 9.1 g/dL (11.7-16.6); Lymphocytes # 0.5 10^3/uL (0.8-4.8); Lymphocytes % 8.2 %; Mean Corpuscular HGB Conc 32.2 g/dL (30.0-36.0); Mean Corpuscular Hemoglobin 31.3 pg (28.0-34.0); Mean Corpuscular Volume 97.3 fl (80-94); Mean Platelet Volume 11.7 fL (7.4-10.4); Monocytes # 0.4 10^3/uL (0.2-0.9); Monocytes % 6.5 %; Neutrophils # 4.93 10^3/uL (1.8-7.7); Neutrophils % 82.3 %; Nucleated Red Blood Cells % 0 %; Platelet Count 133 10^3/cmm (130-400); Red Blood Count 2.91 10^6/uL (4.1-5.3); Red Cell Distribution Width 13.2 % (12.1-15.1)
[2022-11-23 08:18] LABS: Anion Gap 11.1 (5-19); Blood Urea Nitrogen 19 mg/dL (8-23); Calcium 7.7 mg/dL (8.5-10.5); Carbon Dioxide 29 mmol/L (22-29); Chloride 104 mmol/L (98-107); Glucose 107 mg/dL (65-115); Osmolality Calculated 293 mOsm/kg (285-295); Potassium 4.1 mmol/L (3.5-5.1); Sodium 140 mmol/L (136-145)
--- NOTE | 2022-11-23 08:25 | ECG_ITS ---
[facility] Test Date: 2022-11-23 Pat Name: Neema Upton Department: Room: 262 Gender: Male Moisture Tester: : 1945 Requested By: Yan Gonsales Order Number: [id number] Yarely MD: Ines Messina M.D. Measurements Intervals [place] Rate: 78 P: 7 ID: [id number] QRS: -5 QRSD: 85 T: 17 QT: 386 QTc: 441 Interpretive Statements SINUS RHYTHM WITH SINUS ARRHYTHMIA MODERATE ST DEPRESSION [0.05+ mV ST DEPRESSION] Compared to ECG 11/13/2022 09:05:06 ST (T wave) deviation now present Electronically Signed On 11-23-2022 21:27:09 CDT by Ines Messina M.D. [id number]
--- NOTE | 2022-11-23 08:25 | USCV_ITS ---
Neema Upton Age: 76 Gender: M : 1945 Exam Date: 11/23/2022 15:11 Ordering Phys: Yan العلي MD Technologist: Taran Del Castillo Exam Location: [facility] [place] Indication: chf BP: 150 / 62 HR: 86 Rhythm: Sinus Technical Quality: Adequate MEASUREMENTS (Male / Female) Normal Values 2D ECHO LV Diastolic Diameter PLAX 3.7 cm 4.2 - 5.9 / 3.9 - 5.3 cm LV Systolic Diameter PLAX 2.4 cm IVS Diastolic Thickness 1.3 cm 0.6 - 1.0 / 0.6 - 0.9 cm IVS Systolic Thickness 1.6 cm LVPW Diastolic Thickness 1.3 cm 0.6 - 1.0 / 0.6 - 0.9 cm LVPW Systolic Thickness 1.7 cm LVOT Diameter 2.0 cm LV Ejection Fraction 2D Teich 66.4 % LV Ejection Fraction MOD 2C 61.7 % LV Ejection Fraction 2C AL 63.5 % LA Diameter 4.8 cm Aorta at Sinotubular Diameter 3.4 cm M-MODE Aortic Annulus Diameter 4.5 cm LA Ao Ratio MM 1.2 MV E Point Septal Separation 1.2 cm DOPPLER LVOT Peak Velocity 98.0 cm/s MV Area PHT 2.6 cm squared Mitral E to A Ratio 0.8 MV E' Velocity 41.5 cm/s Mitral E to MV E' Ratio 7.7 Mitral E to LV E' Lateral Ratio 6.1 Mitral E to LV E' Septal Ratio 10.3 TR Peak Velocity 327.0 cm/s TR Peak Gradient 42.8 mmHg Right Atrial Pressure 3.0 mmHg Pulmonary Artery Systolic Pressu 45.8 mmHg RV Acceleration Time 0.1 s FINDINGS Left Ventricle Normal left ventricular size, systolic function with no regional wall motion abnormalities. Left ventricular ejection fraction is estimated at 60 %. Normal diastolic function. Right Ventricle Normal right ventricular size and systolic function. Right Atrium Right atrium not well visualized. Left Atrium Left atrium not well visualized. Mitral Valve Thickened mitral valve. No mitral valve stenosis. No mitral valve regurgitation. Aortic Valve Structurally normal trileaflet aortic valve. No aortic valve stenosis. Mild aortic valve regurgitation. Tricuspid Valve Structurally normal tricuspid valve. Pulmonic Valve Structurally normal pulmonic valve. No pulmonary valve stenosis. Trace pulmonary valve regurgitation. Pericardium No pericardial effusion. Aorta Normal size aortic root and proximal ascending aorta. IVC Inferior vena cava not visualized. CONCLUSIONS 1. Normal left ventricular size, systolic function with no regional wall motion abnormalities. Left ventricular ejection fraction is estimated at 60 %. Normal diastolic function. 2. Mild aortic valve regurgitation. 3. No change when compared to study dated 05/22/2016. Ines Messina MD (Electronically Signed) Final Date: 23 Nov 2022 21:54 S
--- NOTE | 2022-11-23 08:26 | PM.CONSULT ---
Providers/Reason For Consult Consulting Physician/Specialty*: Yan العلي MD Reason for Consult*: Shortness of breath Requesting Physician: Dr. Chavez Attending Physician: Goldy Chavez DO Primary Care Provider: Carla Allen MD History of Present Illness History of Present Illness Neema Upton is a 76 year old male admitted on November 20 secondary to back pain who underwent T10 to pelvis fusion. There was concern, especially last night regarding shortness of breath and some confusion. During my evaluation of the patient today there is no confusion. He reports his shortness of breath is slightly better. He denies any chest discomfort. Communication is somewhat difficult as he does not have his hearing aids in. He reports no prior history of congestive heart failure. He does report he is occasionally short of breath when he exerts himself at home and has a distant smoking history, quitting over 40 years ago. He reports he has had some dry heaves and vomiting while in the hospital. I have been asked in particular regarding concerns of congestive heart failure, from the primary team. He has also had some urinary retention while in the hospital. While in the hospital he was transfused at least 1 unit of blood on the for acute postoperative blood loss anemia and hemoglobin of 8.1. Baseline hemoglobin was around 14.8. He received 20 mg of Lasix very early this morning. Review of Systems General: Reports: 10 or more systems reviewed and unremarkable except in HPI and below Card: Reports: orthopnea; Denies: chest pain or swelling of feet/ankles Resp: Reports: dyspnea; Denies: productive cough or non-productive cough Medications/Allergies Home Medications Medication Instructions Recorded Confirmed Last Taken Type etodolac 400 mg tablet 400 mg PO BID 02/13/22 11/20/22 11/15/22 History Fiber Well 1 tab PO QDAY 06/27/22 11/20/22 11/19/22 History tramadol 50 mg tablet 50 mg PO TID PRN pain #90 tabs 07/11/22 11/20/22 11/19/22 Rx cholecalciferol (vitamin D3) 50 50 mcg PO DAILY 10/31/22 11/20/22 11/18/22 History mcg (2,000 unit) capsule Bone Growth Stimulator E0748 #1 ea 11/20/22 Unknown Rx losartan 25 mg tablet 25 mg PO DAILY 11/20/22 11/20/22 11/19/22 History Allergies Allergy/AdvReac Type Severity Reaction Status Date / Time finasteride [From Proscar] Allergy Severe ADR-Dizzine Verified 11/13/22 08:36 ss tamsulosin [From Flomax] Allergy Severe ADR-Dizzine Verified 11/13/22 08:36 ss Current Medications Generic Name Dose Route Start Last Admin Trade Name Freq PRN Reason Stop Dose Admin Hydrocodone Bitart/Acetaminophen 1 - 2 tab 11/20/22 13:23 11/20/22 18:51 Hydrocodone-Acetaminophen 5-325 Mg Tablet PO 1 tab Q4H PRN Administration MODERATE TO SEVERE PAIN Al Hydrox/Mg Hydrox/Simethicone 30 ml 11/20/22 13:23 11/23/22 01:04 Ntkl-Nuj-Zrzybliet-Anel 30 Ml Udc PO 30 ml Q4H PRN Administration INDIGESTION Docusate Sodium 100 mg 11/20/22 18:00 11/22/22 18:32 Docusate Sodium 100 Mg Capsule PO 100 mg BID RESHMA Administration Lanolin 1 applic 11/20/22 21:07 11/20/22 21:37 Lanolin Oint 7 Gm TOPICAL 1 applic PRN PRN Administration DRYNESS Losartan Potassium 25 mg 11/21/22 09:00 11/22/22 08:48 Losartan 50 Mg Tablet PO 25 mg DAILY RESHMA Administration Non-Formulary Medication 1 tab 11/20/22 13:30 11/22/22 08:13 Fiber Well PO Not Given DAILY RESHMA Ondansetron HCl 4 mg 11/20/22 13:23 11/22/22 09:41 Ondansetron 2 Mg/Ml Sdv 2 Ml IVP 4 mg Q6H PRN Administration NAUSEA AND VOMITING Vitamin D 2,000 unit 11/21/22 09:00 11/22/22 08:48 Cholecalciferol (Vitamin D3) 1,000 Unit Tablet PO 2,000 unit DAILY RESHMA Administration PFSH Acute PFSH: Surgical History Status post hernia repair Family History Brother Cancer Social History Smoking and tobacco status: former smoker Other PFSH information: Supplemental PFSH Information: Besides just having his T10 to pelvis fusion he has also had a nerve stimulator removed. Vitals/I&O/Wt Last Vital Signs Temp 98.6 F 11/23/22 07:59 Pulse 70 11/23/22 07:59 Resp 18 11/23/22 07:59 BP 147/68 11/23/22 07:59 Pulse Ox 96 11/23/22 07:59 O2 Del Method Nasal Cannula 11/23/22 07:59 O2 Flow Rate 1 11/23/22 07:59 11/22/22 11/23/22 11/23/22 22:59 06:59 14:59 Intake Total 890 / 2670 0 / 2670 Output Total 400 / 790 1500 / 2290 Balance 490 / 1880 -1500 / 380 Physical Exam Narrative: General exam is an alert male, denying any chest discomfort, reporting mild shortness of breath. He is on 1 L of oxygen HEENT: Atraumatic and normocephalic. Oropharynx clear. Neck is supple no lymphadenopathy or thyromegaly Cardiovascular regular rate and rhythm, heart sounds distant. I do not auscultate a murmur. Lungs bilateral crackles. Some bilateral expiratory wheezes. Abdomen slight distention. Positive bowel sounds. No obvious organomegaly exam demonstrates Hatfield Extremities no cyanosis clubbing or edema, cap refill brisk Skin no rash Urinary Catheter Management: Hatfield: Cath Placed During This Visit: yes, but has since been removed by the nurse Reason for Continuing Indwelling Catheter: Acute Urinary Retention or Obstruction Urinary Catheter Date of Insertion: 11/22/22 Urinary Catheter Time of Insertion: 14:52 Date Urinary Catheter Removed: 11/21/22 Time Urinary Catheter Discontinued: 07:30 Data 11/23/22 06:42 11/23/22 06:42 Other Labs: EKG done on the demonstrated left axis deviation, sinus rhythm, rate of 60, no acute changes by my read Chest x-ray demonstrates bilateral pulmonary edema, instrumentation in the back by my read A&P Assessment and plan (1) Acute diastolic (congestive) heart failure: Patient appears to have acute fluid overload, consistent with acute diastolic heart failure Overall he is up at least 1 L from his hospital stay. He has bilateral crackles, and a chest x-ray consistent with this. Will go ahead and get a BNP on blood in lab Check echocardiogram IV fluids have already been discontinued. He was given a dose of Lasix appropriately last night. Will give 40 mg IV now. Reviewed BMP currently. Repeat BMP and CBC in the morning. (2) Atelectasis of both lungs: Encourage incentive spirometry He does have a history of smoking, and is wheezing. He indicates to me he had some dry heaves/vomiting. Initiate DuoNeb every 6 hours (3) Urine retention: Patient refuses to take anything for urinary retention currently, reported it made him deathly ill by dizziness in the past. Hatfield removal per orthopedics (4) Acute postoperative anemia due to greater than expected blood loss: He has been transfused at least 1 unit of packed red blood cells. Hemoglobin currently appears stable. No further transfusion is needed. Plan Concern of acute encephalopathy. Currently he is alert, oriented, and appropriate. Pain medication is being adjusted currently. No encephalopathy is present currently. Other medical problems as outlined in past medical history Thank you for this consultation Consult Attestations Medical Necessity Statement: As per primary Coding Level of Care Code 48871 Diagnoses Acute diastolic (congestive) heart failure I50.31 Atelectasis of both lungs J98.11 Urine retention R33.9 Acute postoperative anemia due to greater than expected blood loss D62 Time Spent (min) 41
[2022-11-23 08:52] LABS: NT Pro B Type Natriuretic Pept 1127 pg/mL (0-450)
[2022-11-23] MEDS: FUROsemide 10 mg/mL SDV 4mL 40 MG IVP (08:58)
[2022-11-23] MEDS: cholecalciferol (vitamin D3) 1,000 unit Tablet 2000 UNIT PO (08:59)
[2022-11-23] MEDS: losartan 50 mg Tablet 25 MG PO (08:59)
[2022-11-23] MEDS: docusate sodium 100 mg Capsule PO ×2 (08:59→17:07)
[2022-11-23] MEDS: polyethylene glycol 3350 Pkt 17 gm PO (08:59)
[2022-11-23] MEDS: magnesium hydroxide 30 mL UDC PO ×2 (08:59→17:06)
[2022-11-23] MEDS: ipratropium-albuterol 3 mL Neb INHALATION ×2 (14:17→19:24)
[2022-11-23] MEDS: acetaminophen 325 mg Tablet 650 MG PO (14:29)
[2022-11-23] MEDS: ketorolac 30 mg/mL INJ IVP (15:38)
[2022-11-24] VITALS (12 sets, daily range): BP systolic 128–178; BP diastolic 76–82; PULSE 65–93; RESP 12–20; TEMP 36.7–37.2; O2SAT 92–98
[2022-11-24] MEDS: ipratropium-albuterol 3 mL Neb INHALATION ×4 (01:16→19:07)
--- NOTE | 2022-11-24 04:37 | CTR_ITS ---
PROCEDURE INFORMATION: Exam: CT Abdomen And Pelvis Without Contrast Exam date and time: 11/24/2022 5:19 AM Age: 76 years old Clinical indication: Abdominal pain; Generalized; Prior surgery; Surgery date: 3-7 days post-operative; Surgery type: T10-s1 fusion 11/20/2022. Hernia repair; Patient HX: Worsening diffuse abd pain. T10-s1 fusion performed on 11/20/2022. ; Additional info: Upper abdominal distention, tenderness TECHNIQUE: Imaging protocol: Computed tomography of the abdomen and pelvis without contrast. Radiation optimization: All CT scans at this facility use at least one of these dose optimization techniques: automated exposure control; mA and/or kV adjustment per patient size (includes targeted exams where dose is matched to clinical indication); or iterative reconstruction. REPORTING DATA: Count of CT and Cardiac NM exams in prior 12 months: This patient has received 0 known CTs and 0 known cardiac nuclear medicine studies in the 12 months prior to the current study. COMPARISON: MR lumbar spine wo con* [id number] 08/30/2022 2:35 PM RADIATION DOSE METRICS: Total DLP (mGy-cm): 589.42 FINDINGS: Detailed evaluation of the abdominal and pelvic viscera is somewhat limited in the absence of intravenous contrast. Inferior thorax: COPD, honeycombing, and interstitial disease in the visualized lung base. Mild pleural thickening. Small hiatal hernia. Liver: Hypodense lesions of fat attenuation in the left hepatic lobe, the largest measuring 2.3 cm. Gallbladder and bile ducts: Unremarkable gallbladder. Pancreas: Pancreatic atrophy. Spleen: No splenomegaly. Adrenal glands: 2.7 cm right adrenal adenoma. Kidneys and ureters: 5.0 cm exophytic cyst arising from the lower pole of the right kidney. No hydronephrosis. Mild bilateral infiltration of perinephric fat. Stomach and bowel: Questionable wall thickening in the decompressed stomach. Bowel dilatation, disproportionately involving the colon, in a pattern of ileus. Diverticula, without pericolonic inflammation. Prominent stool. Appendix: Nonvisualization of the appendix. Intraperitoneal space: No significant intraperitoneal fluid. Vasculature: Vascular ectasia. Lymph nodes: Subcentimeter lymph nodes. Urinary bladder: Hatfield catheter in the decompressed bladder. Reproductive: Unremarkable as visualized. Bones/joints: Osteopenia. Laminectomy and pedicle screw fixation extending from T10-S2. 14 mm anterolisthesis of L5 on S1. Scoliosis and multilevel degenerative change. Soft tissues: Poorly defined fluid and edema in the posterior subcutaneous soft tissues of the thoracolumbar spine. CT/CT abdomen pelvis wo con [id number] IMPRESSION: 1. Bowel dilatation, disproportionately involving the colon, in a pattern of ileus. 2. Additional findings as described above. COMMENTS: Consistent with the [employer]'s Incidental Findings Committee white paper (J Am Luis F Radiol 2017): For any incidental adrenal lesion greater than or equal to 1 cm but less than or equal to 4 cm classified in this report as benign, likely benign, or containing fat (including classification as an adenoma or myelolipoma), no follow-up imaging is recommended per consensus recommendations based on imaging criteria. Further lab evaluation could be pursued if warranted based on clinical findings.
[2022-11-24 05:54] LABS: Basophils % 0.4 %; Eosinophils % 0.7 %; Hematocrit 32.4 % (42.0-52.0); Hemoglobin 10.8 g/dL (11.7-16.6); Lymphocytes # 0.5 10^3/uL (0.8-4.8); Lymphocytes % 9.5 %; Mean Corpuscular HGB Conc 33.3 g/dL (30.0-36.0); Mean Corpuscular Hemoglobin 31.9 pg (28.0-34.0); Mean Corpuscular Volume 95.6 fl (80-94); Mean Platelet Volume 10.8 fL (7.4-10.4); Monocytes # 0.4 10^3/uL (0.2-0.9); Monocytes % 7.5 %; Neutrophils # 4.56 10^3/uL (1.8-7.7); Neutrophils % 81.5 %; Nucleated Red Blood Cells % 0 %; Platelet Count 181 10^3/cmm (130-400); Red Blood Count 3.39 10^6/uL (4.1-5.3); Red Cell Distribution Width 12.7 % (12.1-15.1); White Blood Count 5.6 10^3/uL (4.0-10.0)
[2022-11-24 06:16] LABS: Anion Gap 13.3 (5-19); Blood Urea Nitrogen 20 mg/dL (8-23); Calcium 8.2 mg/dL (8.5-10.5); Carbon Dioxide 27 mmol/L (22-29); Chloride 102 mmol/L (98-107); Glucose 133 mg/dL (65-115); Osmolality Calculated 291 mOsm/kg (285-295); Potassium 4.3 mmol/L (3.5-5.1); Sodium 138 mmol/L (136-145)
--- NOTE | 2022-11-24 06:39 | PM.PN ---
Subjective Subjective: POD 4 Patient resting but uncomfortable due to abdominal pain family is present. Patient and family report history of postoperative ileus. Patient is more alert today. Vitals/I&O/Wt Last Vital Signs Temp 98.8 F 11/24/22 04:00 Pulse 74 11/24/22 04:00 Resp 20 H 11/24/22 04:00 BP 178/80 11/24/22 04:00 Pulse Ox 95 11/24/22 04:00 O2 Del Method Nasal Cannula 11/24/22 04:00 O2 Flow Rate 1 11/24/22 04:00 11/23/22 11/23/22 11/24/22 14:59 22:59 06:59 Intake Total 120 / 120 Output Total 1650 / 1650 450 / 2100 350 / 2450 Balance -1530 / -1530 -450 / -1980 -350 / -2330 Physical Exam Narrative: Patient presents alert and oriented x3 with a good general appearance normal mood and affect. Normal coordination normal stability. Mild tenderness around the incisional site with the incision appear to be clean and dry. No signs of erythema or drainage. No signs of infection. Patient denies any fevers or chills. 4/5 motor strength both lower extremities with negative straight leg raise bilaterally. Calves are supple no medial thigh tenderness. Pulses are 2+ at the dorsalis pedis and posterior tibial region. Good capillary refill throughout normal sensation light touch both lower extremities. GI: OTHER: Tender to the touch diffusely, hypoactive bowel sounds Urinary Catheter Management: [place]: Cath Placed During This Visit: yes, but has since been removed by the nurse Reason for Continuing Indwelling Catheter: Acute Urinary Retention or Obstruction Urinary Catheter Date of Insertion: 11/22/22 Urinary Catheter Time of Insertion: 14:52 Date Urinary Catheter Removed: 11/21/22 Time Urinary Catheter Discontinued: 07:30 Data 11/24/22 05:47 11/24/22 05:47 A&P Assessment and plan (1) Acute postoperative anemia due to greater than expected blood loss: hx of postoperative ileus. We will await the results of the CT of the abdomen. Encourage incentive spirometer for pulmonary toilet. Dressing change to the thoracolumbar dressing. Apply Silverlon. (2) Status post lumbar spinal fusion: (3) Atelectasis of both lungs: Attestations Medical Necessity Statement*: Defer to medical team Coding Level of Care Code Acute Code for Chg Fwd Diagnoses Acute postoperative anemia due to greater than expected blood loss D62 Status post lumbar spinal fusion Z98.1 Atelectasis of both lungs J98.11
[2022-11-24] MEDS: bisacodyl 10 mg Supp PR (09:19)
--- NOTE | 2022-11-24 11:22 | PM.PN ---
Subjective Subjective: Patient reports abdominal pain through the night. No further vomiting. CT scan was done last night demonstrating ileus. Suppository was given this morning without significant results. Vitals/I&O/Wt Last Vital Signs Temp 98.7 F 11/24/22 08:00 Pulse 67 11/24/22 08:35 Resp 16 11/24/22 08:30 BP 171/78 11/24/22 08:00 Pulse Ox 97 11/24/22 08:30 O2 Del Method Nasal Cannula 11/24/22 08:30 O2 Flow Rate 2 11/24/22 08:30 11/23/22 11/24/22 11/24/22 22:59 06:59 14:59 Output Total 450 / 2100 350 / 2450 500 / 500 Balance -450 / -1980 -350 / -2330 -500 / -500 Physical Exam Narrative: General exam reports abdominal pain, on 2 L of oxygen Neck is supple no lymphadenopathy or thyromegaly Cardiovascular regular rate and rhythm, heart sounds distant. No murmur Lungs improved aeration. No wheezing Abdomen distended. Occasional high-pitched bowel sounds. Tender exam demonstrates [place] Extremities no cyanosis clubbing or edema, cap refill brisk Skin no rash Urinary Catheter Management: [place]: Cath Placed During This Visit: yes, but has since been removed by the nurse Reason for Continuing Indwelling Catheter: Acute Urinary Retention or Obstruction Urinary Catheter Date of Insertion: 11/22/22 Urinary Catheter Time of Insertion: 14:52 Date Urinary Catheter Removed: 11/21/22 Time Urinary Catheter Discontinued: 07:30 Data 11/24/22 05:47 11/24/22 05:47 A&P Assessment and plan (1) Acute diastolic (congestive) heart failure: Patient appears to have acute fluid overload, consistent with acute diastolic heart failure Overall he is up at least 1 L from his hospital stay. He has bilateral crackles, and a chest x-ray consistent with this. BNP was elevated Echocardiogram demonstrated preserved EF I gave him furosemide 11/23 with good results. Approximately 3 L negative. Repeat BMP tomorrow Now has developed ileus. Will need to put back on low level of IV fluids, 40 cc an hour (2) Atelectasis of both lungs: Encourage incentive spirometry He does have a history of smoking, and is wheezing. Initiate DuoNeb every 6 hours (3) Urine retention: Patient refuses to take anything for urinary retention currently, reported it made him deathly ill by dizziness in the past. Hatfield removal per orthopedics (4) Acute postoperative anemia due to greater than expected blood loss: He has been transfused at least 1 unit of packed red blood cells. Hemoglobin is stable (5) Ileus: Patient has developed postoperative ileus. Significant amount of colonic distention. This did not respond to suppository. He has been getting appropriate laxatives since admission and narcotics are being limited. He still has nausea, abdominal pain. He does have some air in his small intestine as well. He has not had any flatus since yesterday, and has not had a bowel movement. Will go ahead and place NG to low intermittent suction. Mobilize Plan Concern of acute encephalopathy. Currently he is alert, oriented, and appropriate. Pain medication is being adjusted currently. No encephalopathy is present currently. Other medical problems as outlined in past medical history Thank you for this consultation Attestations Medical Necessity Statement*: Needs continued hospitalization secondary to postoperative ileus Coding Level of Care Code Acute Code for [facility] Diagnoses Acute diastolic (congestive) heart failure I50.31 Atelectasis of both lungs J98.11 Urine retention R33.9 Acute postoperative anemia due to greater than expected blood loss D62 Ileus K56.7
[2022-11-24] MEDS: lactulose oral liq 20 gm/30 mL UDC 30 GM PO ×2 (14:20→18:18)
[2022-11-24] MEDS: sodium chloride 0.9% 1,000 ML 40 ML IV (14:21)
[2022-11-24] MEDS: Fleet Enema 133 mL Enema PR (15:25)
--- NOTE | 2022-11-24 16:20 | PM.CONSULT ---
Providers/Reason For Consult Consulting Physician/Specialty*: Dr. Mike Lyon, DO/General surgery Reason for Consult*: Ileus Attending Physician: Goldy Chavez DO Primary Care Provider: Carla Allen MD History of Present Illness History of Present Illness Neema Upton is a 76 year old male who is 4 days status post T10 to pelvis fusion. Postoperatively he has had a prolonged ileus. CT of the abdomen and pelvis shows mostly air dilation of the colon up to 9 cm in the a sending and transverse colon. There is no sign of small or large bowel obstruction. His last colonoscopy was 6 months ago and was reportedly within normal limits. He did have nausea and vomiting yesterday. He reports that he is nauseous today and not passing any flatus or having bowel movements. Review of Systems General: Reports: 10 or more systems reviewed and unremarkable except in HPI and below Medications/Allergies Home Medications Medication Instructions Recorded Confirmed Last Taken Type etodolac 400 mg tablet 400 mg PO BID 02/13/22 11/20/22 11/15/22 History Fiber Well 1 tab PO QDAY 06/27/22 11/20/22 11/19/22 History tramadol 50 mg tablet 50 mg PO TID PRN pain #90 tabs 07/11/22 11/20/22 11/19/22 Rx cholecalciferol (vitamin D3) 50 50 mcg PO DAILY 10/31/22 11/20/22 11/18/22 History mcg (2,000 unit) capsule Bone Growth Stimulator E0748 #1 ea 11/20/22 Unknown Rx losartan 25 mg tablet 25 mg PO DAILY 11/20/22 11/20/22 11/19/22 History Allergies Allergy/AdvReac Type Severity Reaction Status Date / Time finasteride [From Proscar] Allergy Severe ADR-Dizzine Verified 11/13/22 08:36 ss tamsulosin [From Flomax] Allergy Severe ADR-Dizzine Verified 11/13/22 08:36 ss Current Medications Generic Name Dose Route Start Last Admin Trade Name Freq PRN Reason Stop Dose Admin Acetaminophen 650 mg 11/20/22 13:11/23/22 14:29 Acetaminophen 325 Mg Tablet PO 650 mg Q4H PRN Administration Mild Pain or fever >101.5 Al Hydrox/Mg Hydrox/Simethicone 30 ml 11/20/22 13:23 11/23/22 01:04 Hirl-Sme-Wmluicxbm-Anel 30 Ml Udc PO 30 ml Q4H PRN Administration INDIGESTION Albuterol/Ipratropium 3 ml 11/23/22 14:00 11/24/22 13:15 Ipratropium-Albuterol 3 Ml Neb INHALATION 3 ml Q6H.RESP RESHMA Administration Docusate Sodium 100 mg 11/20/22 18:00 11/24/22 08:51 Docusate Sodium 100 Mg Capsule PO Not Given BID [facility] Sodium Chloride 1,000 mls @ 40 mls/hr 11/24/22 11:30 11/24/22 14:21 Sodium Chloride 0.9% IV 40 mls/hr .Q24H RESHMA Administration Ketorolac Tromethamine 30 mg 11/23/22 07:15 11/23/22 15:38 Ketorolac 30 Mg/Ml Inj IVP 11/25/22 13:33 30 mg Q6H PRN Administration MODERATE PAIN Lactulose 30 gm 11/24/22 13:00 11/24/22 14:20 Lactulose Oral Liq 20 Gm/30 Ml Udc PO 30 gm Q6H RESHMA Administration Lanolin 1 applic 11/20/22 21:07 11/20/22 21:37 Lanolin Oint 7 Gm TOPICAL 1 applic PRN PRN Administration DRYNESS Losartan Potassium 25 mg 11/21/22 09:00 11/24/22 09:58 Losartan 50 Mg Tablet PO Not Given DAILY [facility] Magnesium Hydroxide 30 ml 11/20/22 13:23 11/23/22 17:06 Magnesium Hydroxide 30 Ml Udc PO 30 ml Q4H PRN Administration Constipation/indigestion Neostigmine Methylsulfate 2 mg 11/24/22 14:45 11/24/22 16:04 Neostigmine 1 Mg/Ml Sdv 10 Ml IV 2 mg ONCE [facility] Administration Non-Formulary Medication 1 tab 11/20/22 13:30 11/24/22 08:51 Fiber Well PO Not Given DAILY [facility] Ondansetron HCl 4 mg 11/20/22 13:23 11/22/22 09:41 Ondansetron 2 Mg/Ml Sdv 2 Ml IVP 4 mg Q6H PRN Administration NAUSEA AND VOMITING Pantoprazole Sodium 40 mg 11/24/22 09:00 11/24/22 08:[address] 40 Mg Tablet PO Not Given DAILY RESHMA Polyethylene Glycol 17 gm 11/23/22 09:00 11/24/22 08:51 Polyethylene Glycol 3350 Pkt 17 Gm PO Not Given DAILY RESHMA Vitamin D 2,000 unit 11/21/22 09:00 11/24/22 08:51 Cholecalciferol (Vitamin D3) 1,000 Unit Tablet PO Not Given DAILY RESHMA PFSH Acute PFSH: Surgical History Status post hernia repair Family History Brother Cancer Social History Smoking and tobacco status: former smoker Vitals/I&O/Wt Last Vital Signs Temp 98.9 F 11/24/22 11:59 Pulse 73 11/24/22 13:17 Resp 16 11/24/22 13:14 BP 165/82 11/24/22 11:59 Pulse Ox 92 11/24/22 13:14 O2 Del Method Room Air 11/24/22 13:14 O2 Flow Rate 1.5 11/24/22 11:59 11/24/22 11/24/22 11/24/22 06:59 14:59 22:59 Output Total 350 / 2450 500 / 500 Balance -350 / -2330 -500 / -500 Physical Exam Narrative: General : Patient is well developed , no acute distress, oriented x3 Head : Normal cephalic, a-traumatic. Ears : Pinnae and external canal are normal. Hearing is normal. Eyes : PERRLA, Sclera and injection are normal. No conjunctival discharge. Nose : Mucous membranes are without erythema. Throat : buccal mucosa is normal, gums are without significant recession or hypertrophy. Lungs : Equal chest rise bilaterally, no use of accessory muscles, trachea is midline. Cor : Rate and rhythm are normal. Abdomen : Soft, marked distention, mild diffuse tenderness, no g/r/m Extremities : No edema, no cyanosis or clubbing, dorsalis pedis pulses are present bilaterally, non-tender to palpation of calves. Upper extremities are normal bilaterally. Back : non-tender to palpation, no CVA tenderness. Neuro : CN II - XII intact, Upper and lower extremities have equal and full strength Urinary Catheter Management: [place]: Cath Placed During This Visit: yes, but has since been removed by the nurse Reason for Continuing Indwelling Catheter: Acute Urinary Retention or Obstruction Urinary Catheter Date of Insertion: 11/22/22 Urinary Catheter Time of Insertion: 14:52 Date Urinary Catheter Removed: 11/21/22 Time Urinary Catheter Discontinued: 07:30 Data 11/24/22 05:47 11/24/22 05:47 A&P Assessment and plan (1) [place]'s syndrome: Plan Fleets enema Telemetry Neostigmine 2 mg slow push Lactulose p.o. going forward Will follow Coding Level of Care Code 21781 Diagnoses [place]'s syndrome K59.81
[2022-11-24] MEDS: docusate sodium 100 mg Capsule PO (17:34)
[2022-11-25] VITALS (14 sets, daily range): BP systolic 149–183; BP diastolic 75–84; PULSE 72–92; RESP 15–18; TEMP 36.3–36.9; O2SAT 91–97
[2022-11-25] MEDS: lactulose oral liq 20 gm/30 mL UDC 30 GM PO ×4 (01:04→18:12)
[2022-11-25] MEDS: ipratropium-albuterol 3 mL Neb INHALATION ×3 (01:18→14:30)
[2022-11-25 05:51] LABS: Basophils % 0.5 %; Eosinophils # 0.1 10^3/uL (0.0-0.8); Eosinophils % 1.4 %; Hematocrit 32.7 % (42.0-52.0); Hemoglobin 10.7 g/dL (11.7-16.6); Lymphocytes # 0.6 10^3/uL (0.8-4.8); Lymphocytes % 10.9 %; Mean Corpuscular HGB Conc 32.7 g/dL (30.0-36.0); Mean Corpuscular Hemoglobin 31.7 pg (28.0-34.0); Mean Corpuscular Volume 96.7 fl (80-94); Mean Platelet Volume 10.7 fL (7.4-10.4); Monocytes # 0.6 10^3/uL (0.2-0.9); Monocytes % 10.7 %; Neutrophils # 4.33 10^3/uL (1.8-7.7); Neutrophils % 76.3 %; Nucleated Red Blood Cells % 0 %; Platelet Count 219 10^3/cmm (130-400); Red Blood Count 3.38 10^6/uL (4.1-5.3); Red Cell Distribution Width 12.8 % (12.1-15.1); White Blood Count 5.7 10^3/uL (4.0-10.0)
[2022-11-25 06:13] LABS: Alanine Aminotransferase 23 U/L (0-41); Albumin Level 3.1 g/dL (3.5-5.2); Alkaline Phosphatase 63 U/L (40-130); Anion Gap 13.2 (5-19); Aspartate Amino Transferase 42 U/L (0-40); Blood Urea Nitrogen 28 mg/dL (8-23); Calcium 8.4 mg/dL (8.5-10.5); Carbon Dioxide 29 mmol/L (22-29); Chloride 103 mmol/L (98-107); Globulin 2.8 g/dL (1.3-4.6); Glucose 125 mg/dL (65-115); Magnesium 2.3 mg/dL (1.7-2.3); Osmolality Calculated 299 mOsm/kg (285-295); Potassium 4.2 mmol/L (3.5-5.1); Sodium 141 mmol/L (136-145); Total Bilirubin 0.4 mg/dL (0.15-1.2); Total Protein 5.9 g/dL (6.6-8.7)
[2022-11-25] MEDS: ketorolac 30 mg/mL INJ IVP ×2 (07:15→13:17)
[2022-11-25] MEDS: polyethylene glycol 3350 Pkt 17 gm PO (08:15)
[2022-11-25] MEDS: docusate sodium 100 mg Capsule PO ×2 (08:16→17:43)
[2022-11-25] MEDS: losartan 50 mg Tablet 25 MG PO (08:16)
[2022-11-25] MEDS: cholecalciferol (vitamin D3) 1,000 unit Tablet 2000 UNIT PO (08:16)
[2022-11-25] MEDS: pantoprazole DR 40 mg Tablet PO (08:17)
--- NOTE | 2022-11-25 09:34 | P.PN_ITS ---
Subjective Subjective: POD 5 Patient continues to be very somnolent. He is difficult of hearing. is present in the room today. Large bowel movement x2 abdomen feels much better. Patient still has not been ambulatory with physical therapy. Still has Hatfield catheter. Vitals/I&O/Wt Last Vital Signs Temp 97.3 F L 11/25/22 08:00 Pulse 73 11/25/22 08:00 Resp 18 11/25/22 08:00 BP 156/80 11/25/22 08:16 Pulse Ox 97 11/25/22 08:00 O2 Del Method Room Air 11/25/22 08:00 O2 Flow Rate 1.5 11/24/22 11:59 11/24/22 11/25/22 11/25/22 22:59 06:59 14:59 Output Total 550 / 1050 650 / 1700 Balance -550 / -1050 -650 / -1700 Physical Exam Narrative: Patient presents alert and oriented x3 with a good general appearance normal mood and affect. Normal coordination normal stability. Mild tenderness around the incisional site with the incision appear to be healing nicely. No signs of erythema or drainage. No signs of infection. Patient denies any fevers or chills. 4/5 motor strength both lower extremities with negative straight leg raise bilaterally. Calves are supple no medial thigh tenderness. Pulses are 2+ at the dorsalis pedis and posterior tibial region. Good capillary refill throughout normal sensation light touch both lower extremities. 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 Less abdominal pain. Discussed with the nurse to discontinue [place] catheter. Physical therapy to m obilize twice today patient to spend more time up in the chair. Encourage incentive spirometry for pulmonary toilet. Dressing change and reapply a Silverlon dressing. Continue to have social human services assistants work on placement. (2) Acute postoperative anemia due to greater than expected blood loss: (3) Status post lumbar spinal fusion: (4) Atelectasis of both lungs: Attestations Medical Necessity Statement*: Awaiting social human services assistants placement. 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
--- NOTE | 2022-11-25 10:12 | XRR_ITS ---
PROCEDURE INFORMATION: Exam: XR Abdomen Exam date and time: 11/25/2022 11:44 AM Age: 76 years old Clinical indication: Abdominal pain; Acute; Additional info: Tenderness, no bm TECHNIQUE: Imaging protocol: Radiologic exam of the abdomen. Views: 2 Views. Upright and supine views. COMPARISON: CT abdomen pelvis wo con [id number] 11/24/2022 5:19 AM FINDINGS: Tubes, catheters and devices: Extensive spinal instrumentation of the thoracolumbar spine and sacroiliac joints with syndesmotic screws across the SI joints. No acute bony abnormalities. Lungs: There are scattered interstitial and emphysematous changes lower lung zones relatively stable and likely chronic. Heart/Mediastinum: Heart is mildly enlarged, unchanged. Gastrointestinal tract: There is diffuse gaseous distention of the entire large bowel with some retained stool is relatively stable from previous exam that may represent combination of colonic ileus and constipation. No free air seen. Intraperitoneal space: See Gastrointestinal tract finding. Bones/joints: See Tubes, catheters and devices finding. XR/XR acute abdomen series [id number] IMPRESSION: Stable colonic distention that appears to represent combination of colonic ileus and mild constipation.
--- NOTE | 2022-11-25 10:40 | PM.PN ---
Subjective Subjective: Patient had 2 large bowel movements yesterday after neostigmine. He reports that he has not had nausea since yesterday. His abdomen is fractionating still operator Vitals/I&O/Wt Last Vital Signs Temp 97.3 F L 11/25/22 08:00 Pulse 73 11/25/22 08:00 Resp 18 11/25/22 08:00 BP 156/80 11/25/22 08:16 Pulse Ox 97 11/25/22 08:00 O2 Del Method Room Air 11/25/22 08:00 O2 Flow Rate 1.5 11/24/22 11:59 11/24/22 11/25/22 11/25/22 22:59 06:59 14:59 Output Total 550 / 1050 650 / 1700 Balance -550 / -1050 -650 / -1700 Physical Exam Narrative: General: No acute distress somnolent but oriented x3 Abdomen soft, moderately distended, diffuse mild tenderness, no guarding rebound or masses Urinary Catheter Management: [place]: Cath Placed During This Visit: yes, but has since been removed by the nurse Reason for Continuing Indwelling Catheter: Acute Urinary Retention or Obstruction Urinary Catheter Date of Insertion: 11/22/22 Urinary Catheter Time of Insertion: 14:52 Date Urinary Catheter Removed: 11/21/22 Time Urinary Catheter Discontinued: 07:30 Data 11/25/22 05:29 11/25/22 05:29 A&P Assessment and plan (1) Ileus: (2) Harman's syndrome: Plan Lactulose 30 mg every 6 Add Reglan 5 mg every 6 Acute abdomen series May need repeat dose of neostigmine depending on results of x-rays No acute surgical intervention Attestations Medical Necessity Statement*: Per primary Coding Level of Care Code Acute Code for 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
[2022-11-25] MEDS: metoclopramide 5 mg/mL SDV 2 mL IVP ×3 (11:43→22:50)
[2022-11-25] MEDS: sodium chloride 0.9% 1,000 ML 40 ML IV (11:43)
[2022-11-25] MEDS: acetaminophen 325 mg Tablet 650 MG PO ×2 (11:56→22:49)
--- NOTE | 2022-11-25 17:44 | PM.PN ---
Subjective Subjective: Patient reports abdominal pain and distention are much worse than yesterday. His spouse is bedside and agrees. She expresses concerns over bowel rupturing. Patient endorses intermittent nausea, none at the moment. Denies any vomiting. Endorses diffuse weakness, malaise, and fatigue. Medications: Reviewed: Yes Vitals/I&O/Wt Last Vital Signs Temp 97.5 F L 11/25/22 16:00 Pulse 85 11/25/22 16:00 Resp 16 11/25/22 16:00 BP 149/82 11/25/22 16:00 Pulse Ox 94 11/25/22 16:00 O2 Del Method Room Air 11/25/22 16:00 O2 Flow Rate 1.5 11/24/22 11:59 11/25/22 11/25/22 11/25/22 06:59 14:59 22:59 Intake Total 1000 / 1000 Output Total 650 / 1700 Balance -650 / -1700 1000 / 1000 Physical Exam Narrative: General: Patient is awake. In moderate distress. Head: Normocephalic. Atraumatic. EOM intact. Neck: No JVD. Cardiovascular: RRR. No gallops. No murmurs. Lungs: Breath sounds are diminished in bilateral bases, no use of accessory muscles, no crackles or wheezes. Skin: No jaundice. No rashes. Abdomen: Markedly distended. Bowel sounds are present. TTP in all 4 quadrants. No guarding. Extremities: No cyanosis or clubbing. Musculoskeletal: No overt joint deformity. Neurological: Moves all 4 extremities. No myoclonus. Urinary Catheter Management: [place]: Cath Placed During This Visit: yes, but has since been removed by the nurse Reason for Continuing Indwelling Catheter: Acute Urinary Retention or Obstruction Urinary Catheter Date of Insertion: 11/22/22 Urinary Catheter Time of Insertion: 14:52 Date Urinary Catheter Removed: 11/21/22 Time Urinary Catheter Discontinued: 07:30 Data 11/25/22 05:29 11/25/22 05:29 A&P Assessment and plan (1) Ileus: Persistent ileus w/ nausea and abd pain/distention General surgery following NGT placement reportedly failed, may require EGD guided if NG is required Optimize electrolytes Encouraged ambulation Imaging reviewed Antiemetics and dick regimen adjusted by GS (2) Acute diastolic (congestive) heart failure: Improved W/ ileus, oral intake has been poor as expected Continue low dose IVF, hold diuretics Strict I&Os Daily assessment of volume Echo reviewed (3) Atelectasis of both lungs: Pulmonary toilet IS High risk of PNA (4) Urine retention: Refuses pharmacological tx (5) Acute postoperative anemia due to greater than expected blood loss: S/P 1 pRBC Stable (6) Status post lumbar spinal fusion: Management per primary Attestations Medical Necessity Statement*: Pt w/ post op ileus requiring ongoing hospitalization. Coding Level of Care Code Acute Code for Chg Fwd Diagnoses Ileus K56.7 Acute diastolic (congestive) heart failure I50.31 Atelectasis of both lungs J98.11 Urine retention R33.9 Acute postoperative anemia due to greater than expected blood loss D62 Status post lumbar spinal fusion Z98.1
[2022-11-25] MEDS: Fleet Enema 133 mL Enema PR (17:57)
[2022-11-26] VITALS (13 sets, daily range): BP systolic 130–177; BP diastolic 80–98; PULSE 76–92; RESP 16–22; TEMP 36.5–37.7; O2SAT 91–95
[2022-11-26] MEDS: lactulose oral liq 20 gm/30 mL UDC 30 GM PO ×4 (02:07→17:50)
[2022-11-26] MEDS: alum-mag-hydroxide-sime 30 mL UDC PO ×2 (02:10→19:45)
[2022-11-26] MEDS: metoclopramide 5 mg/mL SDV 2 mL IVP ×4 (06:03→22:37)
[2022-11-26] MEDS: losartan 50 mg Tablet 25 MG PO (07:53)
[2022-11-26] MEDS: docusate sodium 100 mg Capsule PO ×2 (07:53→17:50)
[2022-11-26] MEDS: pantoprazole DR 40 mg Tablet PO (07:53)
[2022-11-26] MEDS: cholecalciferol (vitamin D3) 1,000 unit Tablet 2000 UNIT PO (07:53)
[2022-11-26] MEDS: polyethylene glycol 3350 Pkt 17 gm PO (07:58)
[2022-11-26] MEDS: ipratropium-albuterol 3 mL Neb INHALATION ×2 (07:59→19:52)
--- NOTE | 2022-11-26 10:29 | PM.PN ---
Subjective Subjective: Patient is currently laying in bed. Discussed with his has had a bowel movement today and has not been up with therapy yet today. Pain seems to be controlled. Just feels weak in his legs. Vitals/I&O/Wt Last Vital Signs Temp 98 F 11/26/22 04:00 Pulse 88 11/26/22 08:04 Resp 22 H 11/26/22 07:59 BP 166/98 11/26/22 07:53 Pulse Ox 93 11/26/22 07:59 O2 Del Method Room Air 11/26/22 07:59 O2 Flow Rate 1.5 11/25/22 20:00 Physical Exam Narrative: Resting in bed comfortably. Urinary Catheter Management: [place]: Cath Placed During This Visit: yes, but has since been removed by the nurse Reason for Continuing Indwelling Catheter: Acute Urinary Retention or Obstruction Urinary Catheter Date of Insertion: 11/22/22 Urinary Catheter Time of Insertion: 14:52 Date Urinary Catheter Removed: 11/21/22 Time Urinary Catheter Discontinued: 07:30 Data 11/25/22 05:29 11/25/22 05:29 A&P Assessment and plan (1) Status post lumbar spinal fusion: Continue to work with physical therapy. Attestations Medical Necessity Statement*: weakness and mobilization pain control Coding Level of Care Code Acute Code for Chg Fwd Diagnoses Status post lumbar spinal fusion Z98.1
[2022-11-26 11:29] LABS: Basophils % 0.4 %; Eosinophils % 0.4 %; Hematocrit 35.3 % (42.0-52.0); Hemoglobin 11.4 g/dL (11.7-16.6); Lymphocytes # 1.1 10^3/uL (0.8-4.8); Lymphocytes % 10.8 %; Mean Corpuscular HGB Conc 32.3 g/dL (30.0-36.0); Mean Corpuscular Hemoglobin 31.2 pg (28.0-34.0); Mean Corpuscular Volume 96.7 fl (80-94); Mean Platelet Volume 10.1 fL (7.4-10.4); Monocytes # 0.8 10^3/uL (0.2-0.9); Monocytes % 8.1 %; Neutrophils # 7.79 10^3/uL (1.8-7.7); Neutrophils % 79.8 %; Nucleated Red Blood Cells % 0 %; Platelet Count 301 10^3/cmm (130-400); Red Blood Count 3.65 10^6/uL (4.1-5.3); Red Cell Distribution Width 12.5 % (12.1-15.1); White Blood Count 9.8 10^3/uL (4.0-10.0)
[2022-11-26 11:48] LABS: Albumin Level 3.3 g/dL (3.5-5.2); Blood Urea Nitrogen 38 mg/dL (8-23); Calcium 8.8 mg/dL (8.5-10.5); Carbon Dioxide 24 mmol/L (22-29); Chloride 103 mmol/L (98-107); Glucose 145 mg/dL (65-115); Phosphorus 2.6 mg/dL (2.5-4.5); Sodium 139 mmol/L (136-145)
--- NOTE | 2022-11-26 12:39 | P.PN_ITS ---
Subjective Subjective: Patient seen and examined. No further bowel movements since he was given neostigmine. Passing flatus. No further nausea. Vitals/I&O/Wt Last Vital Signs Temp 97.7 F 11/26/22 08:00 Pulse 88 11/26/22 08:04 Resp 19 H 11/26/22 08:00 BP 159/93 11/26/22 08:00 Pulse Ox 95 11/26/22 08:00 O2 Del Method Room Air 11/26/22 08:00 O2 Flow Rate 1.5 11/25/22 20:00 Physical Exam Narrative: General: No acute distress somnolent but oriented x3 Abdomen soft, moderately distended, diffuse mild tenderness, no guarding rebound or masses Urinary Catheter Management: [place]: Cath Placed During This Visit: yes, but has since been removed by the nurse Reason for Continuing Indwelling Catheter: Acute Urinary Retention or Ob struction Urinary Catheter Date of Insertion: 11/22/22 Urinary Catheter Time of Insertion: 14:52 Date Urinary Catheter Removed: 11/21/22 Time Urinary Catheter Discontinued: 07:30 Data 11/26/22 11:20 11/26/22 11:20 A&P Assessment and plan (1) Ileus: (2) [place]'s syndrome: Plan Give repeat dose of neostigmine Lactulose 30 mg every 6 Add Reglan 5 mg every 6 Full liquid diet after neostigmine today No acute surgical intervention Attestations Medical Necessity Statement*: Her primary Coding Level of Care Code Acute Code for [facility] Fwd Diagnoses Ileus K56.7 Harman's syndrome K59.81
[2022-11-26] MEDS: ondansetron 2 mg/ML SDV 2 mL 4 MG IVP (13:50)
[2022-11-26] MEDS: sodium chloride 0.9% 1,000 ML 40 ML IV (14:05)
--- NOTE | 2022-11-26 15:47 | PM.PN ---
Subjective Subjective: Patient reports a few episodes of flatus and small bowel movement last night. Reports diffuse weakness. Spouse reports she has been trying to get him to walk more. Denies fevers, chills, or chest pains. Medications: Reviewed: Yes Vitals/I&O/Wt Last Vital Signs Temp 98.1 F 11/26/22 12:00 Pulse 82 11/26/22 12:00 Resp 18 11/26/22 12:00 BP 130/84 11/26/22 12:00 Pulse Ox 94 11/26/22 12:00 O2 Del Method Room Air 11/26/22 12:00 O2 Flow Rate 1.5 11/25/22 20:00 11/26/22 11/26/22 11/26/22 06:59 14:59 22:59 Intake Total 1000 / 1000 Output Total 250 / 250 Balance 750 / 750 Physical Exam Narrative: General: Patient is awake. Lying in bed. Head: Normocephalic. Atraumatic. EOM intact. Neck: No JVD. Cardiovascular: RRR. No gallops. No murmurs. Lungs: Breath sounds are diminished in bilateral bases, no use of accessory muscles, no crackles or wheezes. Skin: No jaundice. No rashes. Abdomen: Markedly distended, similar to prior exam. Bowel sounds are present. TTP in all 4 quadrants. No guarding. Extremities: No cyanosis or clubbing. Musculoskeletal: No overt joint deformity. Neurological: Moves all 4 extremities. No myoclonus. Urinary Catheter Management: [place]: Cath Placed During This Visit: yes, but has since been removed by the nurse Reason for Continuing Indwelling Catheter: Acute Urinary Retention or Obstruction Urinary Catheter Date of Insertion: 11/22/22 Urinary Catheter Time of Insertion: 14:52 Date Urinary Catheter Removed: 11/21/22 Time Urinary Catheter Discontinued: 07:30 Data 11/26/22 11:20 11/26/22 11:20 A&P Assessment and plan (1) Ileus: Persistent ileus w/ nausea and abd pain/distention General surgery following, plan for repeat neostigmine and FLD afterwards today NGT placement reportedly failed, may require EGD guided if NG is required Optimize electrolytes Encouraged ambulation (2) Status post lumbar spinal fusion: Management per primary (3) Acute diastolic (congestive) heart failure: W/ ileus, oral intake has been poor as expected Continue low dose IVF, hold diuretics Strict I&Os Daily assessment of volume (4) Atelectasis of both lungs: Pulmonary toilet IS High risk of PNA (5) Urine retention: Refuses pharmacological tx (6) Acute postoperative anemia due to greater than expected blood loss: S/P 1 pRBC Stable Attestations Medical Necessity Statement*: Pt w/ post op ileus requiring ongoing hospitalization. Coding Level of Care Code Acute Code for Chg Fwd Diagnoses Ileus K56.7 Status post lumbar spinal fusion Z98.1 Acute diastolic (congestive) heart failure I50.31 Atelectasis of both lungs J98.11 Urine retention R33.9 Acute postoperative anemia due to greater than expected blood loss D62
[2022-11-27] VITALS (9 sets, daily range): BP systolic 143–155; BP diastolic 70–94; PULSE 79–102; RESP 17–29; TEMP 36.2–36.6; O2SAT 90–96
[2022-11-27] MEDS: lactulose oral liq 20 gm/30 mL UDC 30 GM PO (00:22)
[2022-11-27] MEDS: acetaminophen 325 mg Tablet 650 MG PO (01:51)
[2022-11-27] MEDS: metoclopramide 5 mg/mL SDV 2 mL IVP (06:02)
[2022-11-27] MEDS: ipratropium-albuterol 3 mL Neb INHALATION ×3 (08:32→20:34)
--- NOTE | 2022-11-27 09:36 | PM.PN ---
Subjective Subjective: Patient seen and examined. Reporting significant abdominal pain and shortness of breath secondary to his distention. Only passed flatus with second dose of neostigmine that was given yesterday Vitals/I&O/Wt Last Vital Signs Temp 97.9 F 11/27/22 08:00 Pulse 89 11/27/22 08:32 Resp 29 H 11/27/22 08:32 BP 147/84 11/27/22 08:00 Pulse Ox 96 11/27/22 08:32 O2 Del Method Nasal Cannula 11/27/22 08:32 O2 Flow Rate 2 11/27/22 08:32 11/26/22 11/27/22 11/27/22 22:59 06:59 14:59 Intake Total 120 / 1120 Output Total 150 / 400 200 / 600 Balance -150 / 600 -80 / 520 Physical Exam Narrative: General: No acute distress somnolent but oriented x3 Abdomen soft, distended, diffuse mild tenderness, no guarding rebound or masses Urinary Catheter Management: [place]: Cath Placed During This Visit: yes, but has since been removed by the nurse Reason for Continuing Indwelling Catheter: Acute Urinary Retention or Obstruction Urinary Catheter Date of Insertion: 11/22/22 Urinary Catheter Time of Insertion: 14:52 Date Urinary Catheter Removed: 11/21/22 Time Urinary Catheter Discontinued: 07:30 Data 11/26/22 11:20 11/26/22 11:20 A&P Assessment and plan (1) Ileus: Plan Patient has a prolonged ileus. We will hold off on any more neostigmine for now and continue current bowel regimen other than I will increase Reglan to 10 every 6. Increased walking is the best thing he could do for his ileus right now. Physical therapy No acute general surgery intervention Medical management per primary Attestations Medical Necessity Statement*: Per primary Coding Level of Care Code Acute Code for [facility] Fwd Diagnoses Ileus K56.7
--- NOTE | 2022-11-27 09:54 | PM.PN ---
Subjective Subjective: continues to have issues with bowels, laying in bed in discomfort Vitals/I&O/Wt Last Vital Signs Temp 97.9 F 11/27/22 08:00 Pulse 89 11/27/22 08:32 Resp 29 H 11/27/22 08:32 BP 147/84 11/27/22 08:00 Pulse Ox 96 11/27/22 08:32 O2 Del Method Nasal Cannula 11/27/22 08:32 O2 Flow Rate 2 11/27/22 08:32 11/26/22 11/27/22 11/27/22 22:59 06:59 14:59 Intake Total 120 / 1120 Output Total 150 / 400 200 / 600 Balance -150 / 600 -80 / 520 Physical Exam Narrative: pain mostly in belly tender to touch Urinary Catheter Management: [place]: Cath Placed During This Visit: yes, but has since been removed by the nurse Reason for Continuing Indwelling Catheter: Acute Urinary Retention or Obstruction Urinary Catheter Date of Insertion: 11/22/22 Urinary Catheter Time of Insertion: 14:52 Date Urinary Catheter Removed: 11/21/22 Time Urinary Catheter Discontinued: 07:30 Data 11/26/22 11:20 11/26/22 11:20 A&P Assessment and plan (1) Status post lumbar spinal fusion: continue to monitor bowel Attestations Medical Necessity Statement*: pain control Coding Level of Care Code Acute Code for Chg Fwd Diagnoses Status post lumbar spinal fusion Z98.1
[2022-11-27] MEDS: metoclopramide 5 mg/mL SDV 2 mL 10 MG IVP ×3 (11:13→22:14)
[2022-11-27] MEDS: sodium chloride 0.9% 1,000 ML 40 ML IV (12:20)
--- NOTE | 2022-11-27 12:21 | P.PN_ITS ---
Subjective Subjective: I will change diet to n.p.o. Increase fluids to 100 mill per hour Discontinue p.o. meds NG tube attempt unsuccessful because of hiatal hernia Patient is endorsing feeling uncomfortable with bloated abdomen Requiring 1.5 L secondary to hypoventilation I will request PPN Conservative management to be continued Vitals/I&O/Wt Last Vital Signs Temp 97.9 F 11/27/22 08:00 Pulse 89 11/27/22 08:32 Resp 29 H 11/27/22 08:32 BP 147/84 11/27/22 08:00 Pulse Ox 96 11/27/22 08:32 O2 Del Method Nasal Cannula 11/27/22 08:32 O2 Flow Rate 2 11/27/22 08:32 11/26/22 11/27/22 11/27/22 22:59 06:59 14:59 Intake Total 120 / 1120 890 / 890 Output Total 150 / 400 200 / 600 Balance -150 / 600 -80 / 520 890 / 890 Physical Exam Narrative: Abdomen distended Bowel sounds very sluggish Currently on 1.5 L Abdomen soft distended at the bedside S1, S2 No active chest pain or shortness of breath Nonfocal neuro exam Very hard of hearing Urinary Catheter Management: [place]: Cath Placed During This Visit: yes, but has since been removed by the nurse Reason for Continuing Indwelling Catheter: Acute Urinary Retention or Obstruction Urinary Catheter Date of Insertion: 11/22/22 Urinary Catheter Time of Insertion: 14:52 Date Urinary Catheter Removed: 11/21/22 Time Urinary Catheter Discontinued: 07:30 Data 11/26/22 11:20 11/26/22 11:20 A&P Assessment and plan (1) Harman's syndrome: (2) Ileus: (3) Acute postoperative anemia due to greater than expected blood loss: (4) Urine retention: (5) Atelectasis of both lungs: (6) Acute diastolic (congestive) heart failure: (7) Status post lumbar spinal fusion: (8) Acute blood loss as cause of postoperative anemia: (9) Hypertension: (10) Lumbar stenosis with neurogenic claudication: Plan Ileus Patient is full code N.p.o. Increase IV fluid hydration 200 mill per hour Discontinue p.o. medications Change diet to n.p.o. except ice chips NG tube attempted unsuccessful Conservative management Appreciate general surgery recommendations Patient not complaining of any active back pain Patient did not respond to second dose of neostigmine as per the I will start him on PPN I do believe he will take some time to recover monitor f or any signs of perforation over peritonitis with sinus tachycardia and lactic acid and KUB to be followed up Diastolic CHF patient will need IV fluid hydration for now Monitor for any worsening of respiratory status requiring more oxygen Hold off on diuretics for now Atelectasis of lungs patient is using incentive spirometer currently on 1.5 L secondary to hypoventilation I will discuss with Dr. 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
--- NOTE | 2022-11-27 13:44 | PC.NUTR ---
PPN consult received. Recommend PPN to begin peripherally @ 13 mls/hr, increasing 10 mls Q8H until goal rate of 83 mls/hr is reached, with 25 grams/125 mls fat emulsion, MV 10 mls/day and standard electrolytes. Details in RD assessment.
--- NOTE | 2022-11-27 23:13 | PC.NURSE ---
IV access peripheral line had been lost d/t infiltration on pt during day shift that was used for TPN administration. no access at shift change. peripheral access was obtained and TPN restarted. Dr Courtney stated that if access is lost again to place order for PICC for TPN administration.
[2022-11-28] VITALS (13 sets, daily range): BP systolic 130–162; BP diastolic 84–92; PULSE 80–110; RESP 17–31; TEMP 36.5–36.8; O2SAT 90–97
[2022-11-28] MEDS: metoclopramide 5 mg/mL SDV 2 mL 10 MG IVP ×4 (04:06→21:33)
[2022-11-28 05:06] LABS: Blood Urea Nitrogen 34 mg/dL (8-23); Calcium 8.3 mg/dL (8.5-10.5); Carbon Dioxide 24 mmol/L (22-29); Chloride 104 mmol/L (98-107); Glucose 121 mg/dL (65-115); Lactate (Lactic Acid level) 1.5 mmol/L (0.5-2.2); Osmolality Calculated 293 mOsm/kg (285-295); Sodium 137 mmol/L (136-145)
[2022-11-28 05:12] LABS: Anion Gap 12.6 (5-19); Potassium 3.6 mmol/L (3.5-5.1)
--- NOTE | 2022-11-28 05:18 | XRR_ITS ---
PROCEDURE INFORMATION: Exam: XR Chest Exam date and time: 11/28/2022 4:33 AM Age: 76 years old Clinical indication: Shortness of breath; Additional info: SOB, wheezing, crackles in lungs TECHNIQUE: Imaging protocol: Radiologic exam of the chest. Views: 1 view. COMPARISON: CR (CHEST, ) 11/22/2022 11:43 PM FINDINGS: Lungs: Chronic coarse reticular interstitial lung changes bilaterally. Emphysematous lung disease changes. Mild volume loss of the left lung. There is hazy asymmetric increased opacity at the left lung base although this may be mildly decreased from comparison. Fibrotic interstitial lung changes are apparent. Pleural spaces: Unremarkable. No pleural effusion. No pneumothorax. Heart/Mediastinum: Unremarkable. No cardiomegaly. Bones/joints: Unremarkable. XR/XR chest 1V portable [id number] IMPRESSION: Cannot exclude left lower lobe pneumonia.
--- NOTE | 2022-11-28 06:00 | XRR_ITS ---
PROCEDURE INFORMATION: Exam: XR Abdomen Exam date and time: 11/28/2022 4:29 AM Age: 76 years old Clinical indication: Other: Ileus; Prior surgery; Surgery date: 3-7 days post-operative; Surgery type: Lumbar surgery 11/20/22 TECHNIQUE: Imaging protocol: Radiologic exam of the abdomen. Views: Frontal supine view of the abdomen. 1 View. COMPARISON: CR (ABDOMEN, ) 11/25/2022 11:44 AM FINDINGS: Gastrointestinal tract: Gas-filled distended bowel throughout abdomen and pelvis with nonspecific pattern and distribution. Negative for pneumatosis intestinalis. Intraperitoneal space: No obvious pneumoperitoneum. Bones/joints: Multilevel thoracolumbar spine posterior fusion. XR/XR KUB portable [id number] IMPRESSION: Gas-filled distended bowel which may represent ileus. Less convincing for obstruction.
--- NOTE | 2022-11-28 07:00 | PM.PN ---
Subjective Subjective: POD 8 Patient resting with family present. Physical therapy had the patient standing in the room yesterday. Patient's provides most of the history as the patient is very difficult of hearing and complaining of abdominal pain. Has not had a bowel movement in 3 days. Vitals/I&O/Wt Last Vital Signs Temp 98.3 F 11/28/22 04:00 Pulse 98 11/28/22 06:00 Resp 17 11/28/22 04:00 BP 162/89 11/28/22 04:00 Pulse Ox 90 11/28/22 04:00 O2 Del Method Room Air 11/27/22 20:34 O2 Flow Rate 2 11/27/22 08:32 11/27/22 11/28/22 11/28/22 22:59 06:59 14:59 Intake Total 528.614 / 1418.614 633.986 / 2052.600 Output Total 125 / 125 250 / 375 Balance 403.614 / 1293.614 383.986 / 1677.600 Physical Exam Narrative: Patient presents alert and oriented x3 with a good general appearance normal mood and affect.? Mild tenderness around the incisional site with the incision appear to be healing nicely.? No signs of erythema or drainage.? No signs of infection.? Patient denies any fevers or chills.? 4/5 motor strength both lower extremities with negative straight leg raise bilaterally.? Calves are supple no medial thigh tenderness.? Pulses are 2+ at the dorsalis pedis and posterior tibial region.? Good capillary refill throughout normal sensation light touch both lower extremities. GI: OTHER: Distended tender to palpation Urinary Catheter Management: [place]: Cath Placed During This Visit: yes, but has since been removed by the nurse Reason for Continuing Indwelling Catheter: Acute Urinary Retention or Obstruction Urinary Catheter Date of Insertion: 11/22/22 Urinary Catheter Time of Insertion: 14:52 Date Urinary Catheter Removed: 11/21/22 Time Urinary Catheter Discontinued: 07:30 Data 11/26/22 11:20 11/28/22 04:20 CXR: Radiologist's impression: XR/XR chest 1V portable [id number] IMPRESSION: Cannot exclude left lower lobe pneumonia A&P Assessment and plan (1) Harman's syndrome: (2) Status post lumbar spinal fusion: (3) Atelectasis of both lungs: Plan Following the chest x-ray concerns of left lung pneumonia. Fluids were discontinued. We will follow hospitalist team recommendation. Regarding the abdominal distention we will rely on Dr. Lyon for further direction. Nurse indicates that the patient has been refusing oral bowel regiment previously prescribed. Encouraged incentive spirometry for pulmonary toilet. Encouraged physical therapy to continue to work with mobilization. Continue with SCD for mechanical DVT prophylaxis. I will discuss with Dr. Chavez further DVT prophylaxis with Lovenox potentially due to the patient's inactivity. 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
[2022-11-28] MEDS: ipratropium-albuterol 3 mL Neb INHALATION ×3 (07:50→20:55)
--- NOTE | 2022-11-28 07:52 | PC.NURSE ---
Patient is stable. Respiratory rate and blood pressure were elevated. stated that this has been normal for him due to his pain and respiratory issues.
--- NOTE | 2022-11-28 09:18 | PC.CHAP ---
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 visit [] Patient/Family/Request visit [] Outpatient visit [] Follow-up visit [] Physician referral [] Code/Alert [x] Routine visit [] Staff referral [] Actively dying [] Patient sleeping [x] Family support [] [] Out of room [] Palliative care [] [] Receiving care in room [] Pre-surgical visit [] Trauma [] Long length of stay [] ICU visit [] Other: Relational/Emotional Strength [x] Patient feels connected with others/family/visitors/staff [] Distress [] Loneliness/isolation [] Abandonment Spirituality of Patient [x] Person of Cindy [] Attends Yazdanism of their Cindy [x] Believes in Prayer [] Reads Bible or Pentecostalism materials [] There are Spiritual issues to be addressed 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 Interventions [x] Prayer [] Active listening [] Non-anxious presence [x] Spiritual/emotional support [] Crisis/trauma care [] Spiritual counseling [] Bereavement support [] Provided bereavement packet [] Provided Bible/devotional materials [] Provided toy/stuffed animal, coloring book to patient or family member [] Provided Communion [] Anointing/[place] [] Salvation [x] Completed spiritual assessment [] Other: Impact on Illness or Injury [] Angry [] Fearful [] Anxious [] Often cries [] Exhaustion [] Unable to work [] Unable to attend religious [] Unable to walk/stand [] Unable to read [] Unable to drive [] Unable to eat/drink [] Unable to sleep [] Unable to be with family [] Patient intubated [] Other: Summary Time spent with patient 5 min
[2022-11-28] MEDS: pantoprazole DR 40 mg Tablet PO (10:13)
[2022-11-28] MEDS: cholecalciferol (vitamin D3) 1,000 unit Tablet 2000 UNIT PO (10:14)
[2022-11-28] MEDS: enoxaparin 40 mg/0.4 mL Syringe SUBCUT (10:21)
--- NOTE | 2022-11-28 10:45 | PM.PN ---
Subjective Subjective: Patient seen and examined. Denies any nausea or vomiting. Passing some flatus Vitals/I&O/Wt Last Vital Signs Temp 99.1 F 11/29/22 08:00 Pulse 97 11/29/22 08:28 Resp 22 H 11/29/22 08:28 BP 155/69 11/29/22 08:00 Pulse Ox 92 11/29/22 08:28 O2 Del Method Room Air 11/29/22 08:28 O2 Flow Rate 1 11/29/22 01:47 11/28/22 11/29/22 11/29/22 22:59 06:59 14:59 Intake Total 700.891 / 780.954 496.8 / 1277.754 175.967 / 175.967 Output Total 425 / 1525 100 / 1625 150 / 150 Balance 275.891 / -744.046 396.8 / -347.246 25.967 / 25.967 Physical Exam Narrative: General: No acute distress somnolent but oriented x3 Abdomen soft, distended, diffuse mild tenderness, no guarding rebound or masses Urinary Catheter Management: [place]: Cath Placed During This Visit: yes, but has since been removed by the nurse Reason for Continuing Indwelling Catheter: Acute Urinary Retention or Obstruction Urinary Catheter Date of Insertion: 11/22/22 Urinary Catheter Time of Insertion: 14:52 Date Urinary Catheter Removed: 11/21/22 Time Urinary Catheter Discontinued: 07:30 Data 11/29/22 04:44 11/29/22 04:44 A&P Assessment and plan (1) Ileus: Plan Patient has a prolonged ileus. We will hold off on any more neostigmine for now and continue current bowel regimen other than I will increase Reglan to 10 every 6. Increased walking is the best thing he could do for his ileus right now. Physical therapy No acute general surgery intervention Medical management per primary Attestations Medical Necessity Statement*: Per primary Coding Level of Care Code Acute Code for Chg Fwd Diagnoses Ileus K56.7
[2022-11-28] MEDS: lidocaine 1% 5 ML in potassium chloride premix 100 ML 26.25 ML IV (11:51)
[2022-11-28] MEDS: FUROsemide 10 mg/mL SDV 2mL 20 MG IVP (11:51)
--- NOTE | 2022-11-28 11:53 | PM.PN ---
Subjective Subjective: Patient received Lasix, chest x-ray showing atelectasis 1 for left lower lobe pneumonia however he has been afebrile Currently on room air Abdomen is still distended Sluggish bowel sounds Added methylnaltrexone after discussing with Dr. Lyon Potassium repleted Vitals/I&O/Wt Last Vital Signs Temp 98.3 F 11/28/22 07:30 Pulse 80 11/28/22 07:51 Resp 18 11/28/22 07:51 BP 130/92 11/28/22 07:30 Pulse Ox 91 11/28/22 07:51 O2 Del Method Room Air 11/28/22 07:51 O2 Flow Rate 2 11/27/22 08:32 11/27/22 11/28/22 11/28/22 22:59 06:59 14:59 Intake Total 528.614 / 1418.614 633.986 / 2052.600 Output Total 125 / 125 250 / 375 Balance 403.614 / 1293.614 383.986 / 1677.600 Physical Exam Narrative: Patient is very hard of hearing Abdomen is soft Nontender on palpation Bowel sounds sluggish present in the left lower quadrant Mildly fluid overloaded S1, S2 Verbally redirectable Patient was asleep when entered the room Urinary Catheter Management: [place]: Cath Placed During This Visit: yes, but has since been removed by the nurse Reason for Continuing Indwelling Catheter: Acute Urinary Retention or Obstruction Urinary Catheter Date of Insertion: 11/22/22 Urinary Catheter Time of Insertion: 14:52 Date Urinary Catheter Removed: 11/21/22 Time Urinary Catheter Discontinued: 07:30 Data 11/26/22 11:20 11/28/22 04:20 A&P Assessment and plan (1) Neodesha's syndrome: (2) Ileus: (3) Acute diastolic (congestive) heart failure: (4) Urine retention: (5) Atelectasis of both lungs: (6) Status post lumbar spinal fusion: (7) Low back pain potentially associated with radiculopathy: Plan Left lower lobe pneumonia Wheeze Give Lasix Add antibiotics DuoNeb and budesonide Harman syndrome Did not respond very well to neostigmine We will do a trial of methylnaltrexone today Poor nutrition continue PPN Diastolic CHF, additional dose of Lasix this morning Hypokalemia: Repleted Full code N.p.o. Dr. 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
[2022-11-28] MEDS: methylnaltrexone 12 /0.6 mL INJ 12 MG SUBCUT (12:21)
--- NOTE | 2022-11-28 13:12 | XR_ITS ---
WS: [id number] Exam: XR chest 1V portable [id number] Date/Time of Exam: 11/28/2022 2:22 PM Reason For Exam: PICC line placement Comparison 11/28/2022. A right sided PICC line is noted and appears to end at the cavoatrial junction. The lungs remain full y inflated. Areas of plaque atelectasis in the lower lung zones bilaterally. Cardiomediastinal silhou ette is unremarkable. Bony structures are intact. Monitoring leads superimpose the chest. Hardware no anita in the thoracic and upper lumbar spine. XR/XR chest 1V portable [id number] IMPRESSION: 1. Right-sided PICC line ending in the expected region of the cavoatrial juncti on. No acute process identified. 2. Additional minor findings as above.
[2022-11-28] MEDS: piperacillin-tazobactam 3.375 GM in sodium chloride 0.9% (plus) 50 ML IV ×2 (14:54→23:46)
--- NOTE | 2022-11-28 14:55 | ECG_ITS ---
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 Measurements Intervals [place] Rate: 107 P: 6 AK: 138 QRS: -24 QRSD: 87 T: 6 QT: 355 QTc: 475 Interpretive Statements SINUS TACHYCARDIA WITH OCCASIONAL SUPRAVENTRICULAR PREMATURE COMPLEXES BORDERLINE LEFT AXIS DEVIATION [QRS AXIS < -20] MODERATE VOLTAGE CRITERIA FOR LVH, CONSIDER NORMAL VARIANT [MEETS CRITERIA IN ONE OF: R(aVL), S(V1), R(V5), R(V5/V6)+S(V1)] MODERATE ST DEPRESSION [0.05+ mV ST DEPRESSION] Compared to ECG 11/23/2022 09:01:13 Sinus rhythm no longer present Sinus arrhythmia no longer present ST (T wave) deviation still present Electronically Signed On 11-28-2022 19:00:45 CDT by Ines Messina M.D. [id number]
--- NOTE | 2022-11-28 17:46 | PC.NURSE ---
SHIFT SUMMARY PATIENT HAS COMPLAINED OF ABDOMINAL PAIN AND BACK PAIN ON AND OFF TODAY. PATIENT WORKED WITH PT THIS MORNING. SAT IN THE CHAIR AND THEN WAS BACK TO BED. THIS NURSE ALONG WITH LEILA RN DID BED EXERCISES WITH PATIENT TO ENCOURAGE PASSING OF FLATUS. PATIENT HAS HYPOACTIVE BOWEL SOUNDS IN ALL 4 QUADRANTS AT THIS TIME, BUT HAS NOT PASSED FLATUS. CURRENTLY HE IS SITTING IN HIS CHAIR DRINKING CLEAR LIQUIDS. ENCOURAGING AMBULATION. PATIENT IS MOVING VERY SLOWLY AND NEEDS LOTS OF ENCOURAGEMENT. PICC LINE PLACED TODAY. STARTED ON IV ANTIBIOTICS. IV LASIX ADMINISTERED EARLIER TODAY. GOOD URINE OUTPUT RECEIVED.
[2022-11-28] MEDS: budesonide 0.5 mg/2 mL Neb INHALATION (20:55)
--- NOTE | 2022-11-28 22:55 | PC.NURSE ---
PPN titration PPN was running at 33mL/hr at shift change, per protocol this nurse titrated up 10mL/hr at 2230
[2022-11-29] VITALS (14 sets, daily range): BP systolic 118–155; BP diastolic 69–84; PULSE 86–111; RESP 16–24; TEMP 36.4–37.6; O2SAT 90–96
[2022-11-29] MEDS: ipratropium-albuterol 3 mL Neb INHALATION ×4 (01:47→20:43)
[2022-11-29] MEDS: metoclopramide 5 mg/mL SDV 2 mL 10 MG IVP ×4 (04:49→21:03)
[2022-11-29 05:18] LABS: Basophils % 0.1 %; Eosinophils % 0.1 %; Hematocrit 31.5 % (42.0-52.0); Hemoglobin 10.5 g/dL (11.7-16.6); Lymphocytes # 0.8 10^3/uL (0.8-4.8); Mean Corpuscular HGB Conc 33.3 g/dL (30.0-36.0); Mean Corpuscular Hemoglobin 33.1 pg (28.0-34.0); Mean Corpuscular Volume 99.4 fl (80-94); Mean Platelet Volume 10.6 fL (7.4-10.4); Monocytes # 0.4 10^3/uL (0.2-0.9); Monocytes % 4.4 %; Neutrophils # 8.37 10^3/uL (1.8-7.7); Nucleated Red Blood Cells % 0 %; Platelet Count 379 10^3/cmm (130-400); Red Blood Count 3.17 10^6/uL (4.1-5.3); Red Cell Distribution Width 12.9 % (12.1-15.1); White Blood Count 9.6 10^3/uL (4.0-10.0)
[2022-11-29 05:38] LABS: Anion Gap 14.4 (5-19); Blood Urea Nitrogen 36 mg/dL (8-23); Calcium 8.3 mg/dL (8.5-10.5); Carbon Dioxide 27 mmol/L (22-29); Chloride 101 mmol/L (98-107); Glucose 148 mg/dL (65-115); Osmolality Calculated 299 mOsm/kg (285-295); Potassium 3.4 mmol/L (3.5-5.1); Sodium 139 mmol/L (136-145)
[2022-11-29] MEDS: piperacillin-tazobactam 3.375 GM in sodium chloride 0.9% (plus) 50 ML IV ×3 (06:39→23:05)
[2022-11-29] MEDS: budesonide 0.5 mg/2 mL Neb INHALATION ×2 (08:27→20:43)
[2022-11-29] MEDS: pantoprazole DR 40 mg Tablet PO (08:44)
[2022-11-29] MEDS: enoxaparin 40 mg/0.4 mL Syringe SUBCUT (08:44)
[2022-11-29] MEDS: cholecalciferol (vitamin D3) 1,000 unit Tablet 2000 UNIT PO (08:44)
--- NOTE | 2022-11-29 10:47 | PM.PN ---
Subjective Subjective: Patient out of bed and in chair this morning. Abdominal pain improved. Passing more flatus. Denies nausea or vomiting. Vitals/I&O/Wt Last Vital Signs Temp 99.1 F 11/29/22 08:00 Pulse 97 11/29/22 08:28 Resp 22 H 11/29/22 08:28 BP 155/69 11/29/22 08:00 Pulse Ox 92 11/29/22 08:28 O2 Del Method Room Air 11/29/22 08:28 O2 Flow Rate 1 11/29/22 01:47 11/28/22 11/29/22 11/29/22 22:59 06:59 14:59 Intake Total 700.891 / 780.954 496.8 / 1277.754 175.967 / 175.967 Output Total 425 / 1525 100 / 1625 150 / 150 Balance 275.891 / -744.046 396.8 / -347.246 25.967 / 25.967 Physical Exam Narrative: General: No acute distress somnolent but oriented x3 Abdomen soft, distended, nontender, no guarding rebound or masses Urinary Catheter Management: [place]: Cath Placed During This Visit: yes, but has since been removed by the nurse Reason for Continuing Indwelling Catheter: Acute Urinary Retention or Obstruction Urinary Catheter Date of Insertion: 11/22/22 Urinary Catheter Time of Insertion: 14:52 Date Urinary Catheter Removed: 11/21/22 Time Urinary Catheter Discontinued: 07:30 Data 11/29/22 04:44 11/29/22 04:44 A&P Assessment and plan (1) Ileus: Plan Patient has a prolonged ileus. We will hold off on any more neostigmine for now and continue current bowel regimen other than I will increase Reglan to 10 every 6. Increased walking is the best thing he could do for his ileus right now. Regular diet Physical therapy No acute general surgery intervention Medical management per primary Attestations Medical Necessity Statement*: Per primary Coding Level of Care Code Acute Code for Chg Fwd Diagnoses Ileus K56.7
--- NOTE | 2022-11-29 12:21 | PM.PN ---
Subjective Subjective: Passage of flatus notified by the nursing staff Patient is sitting in a chair We have advance his diet today Patient able to work with PT and the nursing staff Abdominal pain slightly better as compared to yesterday Currently on room air Vitals/I&O/Wt Last Vital Signs Temp 98.7 F 11/29/22 12:00 Pulse 99 11/29/22 12:00 Resp 18 11/29/22 12:00 BP 152/75 11/29/22 12:00 Pulse Ox 92 11/29/22 12:00 O2 Del Method Room Air 11/29/22 08:28 O2 Flow Rate 1 11/29/22 01:47 11/28/22 11/29/22 11/29/22 22:59 06:59 14:59 Intake Total 700.891 / 780.954 496.8 / 1277.754 225.967 / 225.967 Output Total 425 / 1525 100 / 1625 150 / 150 Balance 275.891 / -744.046 396.8 / -347.246 75.967 / 75.967 Physical Exam Narrative: Patient sitting in a chair Abdomen soft Bowel sounds present right quadrant today Abdomen is still distended Patient is able to answer my question Awake and alert Nonfocal neuro exam GCS 15 S1, S2 Currently doing well on room air Urinary Catheter Management: [place]: Cath Placed During This Visit: yes, but has since been removed by the nurse Reason for Continuing Indwelling Catheter: Acute Urinary Retention or Obstruction Urinary Catheter Date of Insertion: 11/22/22 Urinary Catheter Time of Insertion: 14:52 Date Urinary Catheter Removed: 11/21/22 Time Urinary Catheter Discontinued: 07:30 Data 11/29/22 04:44 11/29/22 04:44 A&P Assessment and plan (1) [place]'s syndrome: (2) Ileus: (3) Acute diastolic (congestive) heart failure: (4) Atelectasis of both lungs: (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 Did not response to neostigmine or methylnaltrexone It is all air-filled bowel No need of NG at this point Advance diet to GI soft PT on daily basis twice a day Patient is passing flatus Diastolic CHF: Signs improving No need of diuretics Doing well on room air Patient was requiring oxygen related to hypoventilation due to distended abdomen Anticipating discharge once he starts experiencing bowel movement Full code Attestations Medical Necessity Statement*: Anticipating discharge within next 24 to 48 hours Diagnoses [place]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
[2022-11-29] MEDS: lidocaine 1% 5 ML in potassium chloride premix 100 ML 25 ML IV (12:51)
--- NOTE | 2022-11-29 18:13 | PC.NURSE ---
SHIFT SUMMARY PATIENT HAS IMPROVED TODAY COMPARED TO YESTERDAY. ADVANCED TO A GI SOFT DIET. TOLERATING SMALL AMOUNTS. GOOD URINE OUTPUT. PATIENT HAS AMBULATED 6 TIMES IN THE HALLWAY AND SAT IN THE CHAIR THE MAJORITY OF THE DAY. PATIENT HAS ACTIVE BOWEL SOUNDS AND PASSED FLATUS TWICE. CONTINUE TO MONITOR.
[2022-11-29] MEDS: acetaminophen 325 mg Tablet 650 MG PO (20:19)
[2022-11-30] VITALS (15 sets, daily range): BP systolic 107–160; BP diastolic 70–83; PULSE 86–109; RESP 16–20; TEMP 36.4–36.9; O2SAT 92–98
[2022-11-30] MEDS: metoclopramide 5 mg/mL SDV 2 mL 10 MG IVP ×4 (03:13→20:48)
[2022-11-30] MEDS: ipratropium-albuterol 3 mL Neb INHALATION ×4 (03:34→21:25)
[2022-11-30 05:27] LABS: Anion Gap 12.1 (5-19); Blood Urea Nitrogen 36 mg/dL (8-23); Calcium 7.9 mg/dL (8.5-10.5); Carbon Dioxide 25 mmol/L (22-29); Chloride 105 mmol/L (98-107); Glucose 131 mg/dL (65-115); Magnesium 2.3 mg/dL (1.7-2.3); Osmolality Calculated 296 mOsm/kg (285-295); Potassium 4.1 mmol/L (3.5-5.1); Sodium 138 mmol/L (136-145)
[2022-11-30] MEDS: piperacillin-tazobactam 3.375 GM in sodium chloride 0.9% (plus) 50 ML IV ×3 (06:25→22:55)
--- NOTE | 2022-11-30 07:02 | PM.PN ---
Subjective Subjective: POD 10 Patient resting comfortably. Family present. Patient mobilize yesterday did fairly well. Vitals/I&O/Wt Last Vital Signs Temp 97.5 F L 11/30/22 04:00 Pulse 96 11/30/22 05:58 Resp 17 11/30/22 04:00 BP 145/83 11/30/22 04:00 Pulse Ox 97 11/30/22 04:00 O2 Del Method Nasal Cannula 11/30/22 04:00 O2 Flow Rate 2 11/30/22 02:00 11/29/22 11/30/22 11/30/22 22:59 06:59 14:59 Intake Total 527.483 / 2546.117 8354.417 / 2117.867 Output Total 300 / 450 450 / 900 Balance 227.483 / 615.450 602.417 / 1217.867 Physical Exam Narrative: Patient presents alert and oriented x3 with a good general appearance normal mood and affect.? Mild tenderness around the incisional site with the incision appear to be healing nicely.? No signs of erythema or drainage.? No signs of infection.? Patient denies any fevers or chills.? 4/5 motor strength both lower extremities with negative straight leg raise bilaterally.? Calves are supple no medial thigh tenderness.? Pulses are 2+ at the dorsalis pedis and posterior tibial region.? Good capillary refill throughout normal sensation light touch both lower extremities. Urinary Catheter Management: [place]: Cath Placed During This Visit: yes, but has since been removed by the nurse Reason for Continuing Indwelling Catheter: Acute Urinary Retention or Obstruction Urinary Catheter Date of Insertion: 11/22/22 Urinary Catheter Time of Insertion: 14:52 Date Urinary Catheter Removed: 11/21/22 Time Urinary Catheter Discontinued: 07:30 Data 11/29/22 04:44 11/30/22 04:39 A&P Assessment and plan (1) Ileus: Patient to continue mobilizing. Discharge to care home facility when medically stable. Continue incentive spirometry for pulmonary toilet. SCDs for mechanical DVT prophylaxis as well as Lovenox 40 mg subcu daily. Nurses to change dressing today to [place]. We will see him back in the office in 1 week's time to check his progress. Continue physical therapy with mobilization. (2) Atelectasis of both lungs: (3) Status post lumbar spinal fusion: Attestations Medical Necessity Statement*: Discharge to care home facility when medically stable. Coding Level of Care Code Acute Code for Chg Fwd Diagnoses Ileus K56.7 Atelectasis of both lungs J98.11 Status post lumbar spinal fusion Z98.1
[2022-11-30] MEDS: budesonide 0.5 mg/2 mL Neb INHALATION ×2 (07:42→21:25)
--- NOTE | 2022-11-30 08:28 | P.PN_ITS ---
Subjective Subjective: Patient is passing flatus Active bowel sounds P.o. intake gradually improving Not complaining of active pain 58 lethargic Laying supine in his bed is at the bedside Afebrile Electrolyte normal Vitals/I&O/Wt Last Vital Signs Temp 97.7 F 11/30/22 08:00 Pulse 94 11/30/22 08:00 Resp 20 H 11/30/22 08:00 BP 160/79 11/30/22 08:00 Pulse Ox 93 11/30/22 08:00 O2 Del Method Nasal Cannula 11/30/22 08:00 O2 Flow Rate 2 11/30/22 07:43 11/29/22 11/30/22 11/30/22 22:59 06:59 14:59 Intake Total 527.483 / 8176.199 7111.417 / 2117.867 Output Total 300 / 450 450 / 900 Balance 227.483 / 615.450 602.417 / 1217.867 Physical Exam Narrative: Patient is laying supine Abdomen soft Bowel sounds present Distended abdomen Nontender Awake and alert Fatigued and lethargic GCS15 S1, S2 Currently doing well on room air Urinary Catheter Management: [place]: Cath Placed During This Visit: yes, but has since been removed by the nurse Reason for Continuing Indwelling Catheter: Acute Urinary Retention or Obstruction Urinary Catheter Date of Insertion: 11/22/22 Urinary Catheter Time of Insertion: 14:52 Date Urinary Catheter Removed: 11/21/22 Time Urinary Catheter Discontinued: 07:30 Data 11/29/22 04:44 11/30/22 04:39 A&P Assessment and plan (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 intake and ambulation PT twice a day I will be able to release him from the hospital once we notice a bowel movement his abdomen is still distended with positive bowel sounds Full code We will advance diet to regular if he is able to tolerate, patient is not regurgitating food, no decompensated hiatal hernia symptoms Diastolic CHF: Compensated holding Lasix for now Hypoxia related to hypoventilation: Currently on room air doing well Attestations Medical Necessity Statement*: We are waiting for his bowel movement Coding Level of Care Code 34881 Moderate MDM includes number and complexity of problems actively addressed during encounter, amount and/or complexity of data reviewed/ordered and described risk of complication, morbidity or mortality of management as do cumented Diagnoses [place]'s syndrome K59.81 Ileus K56.7 Acute diastolic (congestive) heart failure I50.31 Urine retention R33.9 Atelectasis of both lungs J98.11 Hypertension I10 Lumbar stenosis with neurogenic claudication M48.062
--- NOTE | 2022-11-30 08:40 | PM.PN ---
Subjective Subjective: Patient reports abdominal pain is about the same. He is having some stools. He is tolerating mechanical soft diet without nausea or vomiting. Vitals/I&O/Wt Last Vital Signs Temp 97.7 F 11/30/22 08:00 Pulse 94 11/30/22 08:00 Resp 20 H 11/30/22 08:00 BP 160/79 11/30/22 08:00 Pulse Ox 93 11/30/22 08:00 O2 Del Method Nasal Cannula 11/30/22 08:00 O2 Flow Rate 2 11/30/22 07:43 11/29/22 11/30/22 11/30/22 22:59 06:59 14:59 Intake Total 527.483 / 2577.558 8878.417 / 2117.867 Output Total 300 / 450 450 / 900 Balance 227.483 / 615.450 602.417 / 1217.867 Physical Exam Const: COMMON NORMALS: no acute distress GENERAL APPEARANCE: frail appearing GI: INSPECTION: Yes abdominal distension (not tense) AUSCULTATION: Yes Hypoactive bowel sounds present PALPATION: No Tenderness to palpation present (GI) OTHER: Thick liquid stool. Urinary Catheter Management: [place]: Cath Placed During This Visit: yes, but has since been removed by the nurse Reason for Continuing Indwelling Catheter: Acute Urinary Retention or Obstruction Urinary Catheter Date of Insertion: 11/22/22 Urinary Catheter Time of Insertion: 14:52 Date Urinary Catheter Removed: 11/21/22 Time Urinary Catheter Discontinued: 07:30 Data 11/29/22 04:44 11/30/22 04:39 A&P Assessment and plan (1) Ileus: Slowly improving. Low residue diet and ambulation. Attestations Medical Necessity Statement*: Per hospitalist. Coding Level of Care Code Acute Code for [facility] Fwd Diagnoses Ileus K56.7
[2022-11-30] MEDS: cholecalciferol (vitamin D3) 1,000 unit Tablet 2000 UNIT PO (08:50)
[2022-11-30] MEDS: losartan 50 mg Tablet 25 MG PO (08:50)
[2022-11-30] MEDS: enoxaparin 40 mg/0.4 mL Syringe SUBCUT (08:51)
[2022-11-30] MEDS: pantoprazole DR 40 mg Tablet PO (08:51)
[2022-11-30] MEDS: acetaminophen 325 mg Tablet 650 MG PO ×3 (10:18→20:48)
--- NOTE | 2022-11-30 18:06 | PC.NURSE ---
Patient has not wanted to do much today. Patient walked with this nurse 25 feet in room ad 150 feet out in the [place]. Worked with PT and walked in [place]. Patient was made to site up in chair 2-3 hours at a time and placed on side when in bed. Patient drank two made milk shakes today. Has complained of pain 9 out of 10 today. Tylenol given twice. Patient did have a bowel movement. Also some stool on bed and in brief today. Has not had gas this aftertoon but belly has rumbled a lot this afternoon. Voiding well today. Continue to monitor patient.
--- NOTE | 2022-11-30 21:43 | PC.NURSE ---
PATRIAN not running upon my arrival on shift.
--- NOTE | 2022-11-30 23:27 | PC.NURSE ---
Addendum entered by Caryl Aviles RN 11/30/22 23:35: Tramadol x1 ordered. Original Note: Patient states my back hurts so bad I can't stand it. Pain was not relieved by PRN Tylenol. Dr. Courtney notified that patient has post-op ileus and several pain medications have been discontinued. Notified that patient is c/o severe pain.
[2022-11-30] MEDS: TRAMadol 50 mg Tablet 100 MG PO (23:41)
[2022-12-01] VITALS (12 sets, daily range): BP systolic 125–163; BP diastolic 75–84; PULSE 84–107; RESP 16–20; TEMP 36.7–37.3; O2SAT 91–94
--- NOTE | 2022-12-01 01:35 | PC.NURSE ---
Patient states the Tramadol helped for about an hour and a half and that was it.
[2022-12-01] MEDS: acetaminophen 325 mg Tablet 650 MG PO ×3 (01:37→23:01)
--- NOTE | 2022-12-01 01:45 | PC.NURSE ---
Dr. Courtney notified of patient asking for something for cough.
[2022-12-01] MEDS: metoclopramide 5 mg/mL SDV 2 mL 10 MG IVP ×4 (03:30→21:11)
--- NOTE | 2022-12-01 07:06 | PM.PN ---
Subjective Subjective: Patient is in bed still complaining of low back pain. However he does not be in better spirits today. I will have him get up with physical therapy and try to encourage him to take in p.o. food. Vitals/I&O/Wt Last Vital Signs Temp 99.0 F 12/01/22 03:40 Pulse 88 12/01/22 04:05 Resp 17 12/01/22 03:40 BP 157/83 12/01/22 03:40 Pulse Ox 92 12/01/22 03:40 O2 Del Method Room Air 12/01/22 03:40 O2 Flow Rate 2 11/30/22 07:43 11/30/22 12/01/22 12/01/22 22:59 06:59 14:59 Intake Total 765.883 / 1415.883 50 / 1465.883 Output Total 200 / 200 300 / 500 150 / 150 Balance 565.883 / 1215.883 -250 / 965.883 -150 / -150 Physical Exam Narrative: We will extremities complaining of low back pain. Urinary Catheter Management: [place]: Cath Placed During This Visit: yes, but has since been removed by the nurse Reason for Continuing Indwelling Catheter: Acute Urinary Retention or Obstruction Urinary Catheter Date of Insertion: 11/22/22 Urinary Catheter Time of Insertion: 14:52 Date Urinary Catheter Removed: 11/21/22 Time Urinary Catheter Discontinued: 07:30 Data 11/29/22 04:44 11/30/22 04:39 A&P Assessment and plan (1) Status post lumbar spinal fusion: Encourage ambulation encourage p.o. intake. Attestations Medical Necessity Statement*: Pain control Coding Level of Care Code Acute Code for Chg Fwd Diagnoses Status post lumbar spinal fusion Z98.1
--- NOTE | 2022-12-01 08:10 | XR_ITS ---
WS: [id number] Exam: XR KUB portable [id number] Date/Time of Exam: 12/01/2022 8:24 AM Reason For Exam: ILEUS Comparison 11/28/2022. Continued gaseous distention of both large and small bowel loops. Findings most likely represent adyn amic ileus. No free air. Organ margins are obscured. Posterior fusion hardware in the lower thoracic and lumbar spine as well as the SI joints. XR/XR KUB portable [id number] IMPRESSION: 1. Gaseous distention of both large and small bowel loops showing little change since prior study. The appearance favors adynamic ileus. Bowel obstruction con sidered much less likely.
[2022-12-01] MEDS: enoxaparin 40 mg/0.4 mL Syringe SUBCUT (09:28)
[2022-12-01] MEDS: lactulose oral liq 20 gm/30 mL UDC 10 GM PO (09:28)
[2022-12-01] MEDS: cholecalciferol (vitamin D3) 1,000 unit Tablet 2000 UNIT PO (09:29)
[2022-12-01] MEDS: losartan 50 mg Tablet 25 MG PO (09:29)
[2022-12-01] MEDS: pantoprazole DR 40 mg Tablet PO (09:29)
[2022-12-01] MEDS: piperacillin-tazobactam 3.375 GM in sodium chloride 0.9% (plus) 50 ML IV (09:32)
--- NOTE | 2022-12-01 09:36 | PM.PN ---
Subjective Subjective: Patient had another small bowel movement. He is tolerating soft diet. He had one dose of tramadol but no other narcotics. Vitals/I&O/Wt Last Vital Signs Temp 98.4 F 12/01/22 08:00 Pulse 84 12/01/22 08:00 Resp 17 12/01/22 08:00 BP 163/84 12/01/22 09:29 Pulse Ox 94 12/01/22 08:00 O2 Del Method Room Air 12/01/22 08:00 O2 Flow Rate 2 11/30/22 07:43 11/30/22 12/01/22 12/01/22 22:59 06:59 14:59 Intake Total 765.883 / 1415.883 50 / 1465.883 120 / 120 Output Total 200 / 200 300 / 500 150 / 150 Balance 565.883 / 1215.883 -250 / 965.883 -30 / -30 Physical Exam Const: COMMON NORMALS: no acute distress GI: INSPECTION: Yes abdominal distension (soft) AUSCULTATION: Yes normoactive bowel sounds PALPATION: No Tenderness to palpation present (GI) Urinary Catheter Management: [place]: Cath Placed During This Visit: yes, but has since been removed by the nurse Reason for Continuing Indwelling Catheter: Acute Urinary Retention or Obstruction Urinary Catheter Date of Insertion: 11/22/22 Urinary Catheter Time of Insertion: 14:52 Date Urinary Catheter Removed: 11/21/22 Time Urinary Catheter Discontinued: 07:30 Data 11/29/22 04:44 11/30/22 04:39 A&P Assessment and plan (1) Ileus: Bowel sounds much improved today. Imaging is about the same. Ambulate as much as possible. Narcotic sparing analgesia. Attestations Medical Necessity Statement*: Per attending physician. Coding Level of Care Code Acute Code for g Fwd Diagnoses Ileus K56.7
--- NOTE | 2022-12-01 11:19 | PM.PN ---
Subjective Subjective: She had a bowel movement today Patient may resume and advance diet as tolerable Passing flatus Abdomen less painful Still distended at the bedside Vitals/I&O/Wt Last Vital Signs Temp 98.4 F 12/01/22 08:00 Pulse 84 12/01/22 08:00 Resp 17 12/01/22 08:00 BP 163/84 12/01/22 09:29 Pulse Ox 94 12/01/22 08:00 O2 Del Method Room Air 12/01/22 08:00 O2 Flow Rate 2 11/30/22 07:43 11/30/22 12/01/22 12/01/22 22:59 06:59 14:59 Intake Total 765.883 / 1415.883 50 / 1465.883 120 / 120 Output Total 200 / 200 300 / 500 150 / 150 Balance 565.883 / 1215.883 -250 / 965.883 -30 / -30 Physical Exam Narrative: Abdomen distended Nontender Passing flatus Bowel sound present Awake and alert Fatigued and lethargic Currently on room air Looks dehydrated Deconditioned Nonfocal neuro exam S1, S2 Urinary Catheter Management: [place]: Cath Placed During This Visit: yes, but has since been removed by the nurse Reason for Continuing Indwelling Catheter: Acute Urinary Retention or Obstruction Urinary Catheter Date of Insertion: 11/22/22 Urinary Catheter Time of Insertion: 14:52 Date Urinary Catheter Removed: 11/21/22 Time Urinary Catheter Discontinued: 07:30 Data 11/29/22 04:44 11/30/22 04:39 A&P Assessment and plan (1) [place]'s syndrome: (2) Ileus: (3) Acute diastolic (congestive) heart failure: (4) Urine retention: (5) Atelectasis of both lungs: Plan Adynamic ileus Status post 2 doses of neostigmine and methylnaltrexone 1 dose We will give him milk of magnesia Patient is having a bowel movement, passing flatus Prior authorization started Which point take 48 hours Patient is not in active state of diastolic CHF exacerbation compensated now Physical therapy twice a day Improved p.o. intake and ambulation KUB has not shown significant improvement despite his bowel movement and passage of flatus Attestations Medical Necessity Statement*: Continue medical management Diagnoses Harman's syndrome K59.81 Ileus K56.7 Acute diastolic (congestive) heart failure I50.31 Urine retention R33.9 Atelectasis of both lungs J98.11
[2022-12-01] MEDS: ketorolac 30 mg/mL INJ 15 MG IVP ×2 (13:26→23:00)
[2022-12-01] MEDS: magnesium hydroxide 30 mL UDC 15 ML PO (13:27)
[2022-12-01] MEDS: ipratropium-albuterol 3 mL Neb INHALATION ×2 (14:01→20:29)
[2022-12-01] MEDS: lidocaine 5% Patch 1 PATCH TOPICAL (20:28)
[2022-12-01] MEDS: budesonide 0.5 mg/2 mL Neb INHALATION (20:29)
[2022-12-02] VITALS (14 sets, daily range): BP systolic 124–172; BP diastolic 74–90; PULSE 85–101; RESP 15–20; TEMP 36.4–37.3; O2SAT 92–96
[2022-12-02] MEDS: ipratropium-albuterol 3 mL Neb INHALATION ×4 (02:16→19:24)
[2022-12-02] MEDS: metoclopramide 5 mg/mL SDV 2 mL 10 MG IVP ×4 (03:02→21:20)
[2022-12-02 04:44] LABS: Blood Urea Nitrogen 26 mg/dL (8-23); Calcium 8.6 mg/dL (8.5-10.5); Carbon Dioxide 24 mmol/L (22-29); Chloride 103 mmol/L (98-107); Glucose 126 mg/dL (65-115); Osmolality Calculated 294 mOsm/kg (285-295); Sodium 139 mmol/L (136-145)
[2022-12-02 04:48] LABS: Anion Gap 16.1 (5-19); Potassium 4.1 mmol/L (3.5-5.1)
[2022-12-02] MEDS: acetaminophen 325 mg Tablet 650 MG PO (05:26)
[2022-12-02] MEDS: ketorolac 30 mg/mL INJ 15 MG IVP ×2 (05:27→23:16)
[2022-12-02] MEDS: budesonide 0.5 mg/2 mL Neb INHALATION ×2 (07:22→19:24)
[2022-12-02] MEDS: pantoprazole DR 40 mg Tablet PO (08:19)
[2022-12-02] MEDS: losartan 50 mg Tablet 25 MG PO (08:19)
[2022-12-02] MEDS: cholecalciferol (vitamin D3) 1,000 unit Tablet 2000 UNIT PO (08:19)
[2022-12-02] MEDS: lactulose oral liq 20 gm/30 mL UDC 10 GM PO (08:20)
[2022-12-02] MEDS: lidocaine 5% Patch 1 PATCH TOPICAL ×2 (08:21→21:24)
[2022-12-02] MEDS: enoxaparin 40 mg/0.4 mL Syringe SUBCUT (08:21)
--- NOTE | 2022-12-02 10:08 | PM.PN ---
Subjective Subjective: Subjectively feels less bloated. Has had breakfast without difficulty and gone for a walk. No further stool but passing flatus. Vitals/I&O/Wt Last Vital Signs Temp 97.7 F 12/02/22 08:00 Pulse 96 12/02/22 08:00 Resp 18 12/02/22 08:00 BP 128/74 12/02/22 08:19 Pulse Ox 92 12/02/22 08:00 O2 Del Method Room Air 12/02/22 08:00 O2 Flow Rate 2 11/30/22 07:43 12/01/22 12/02/22 12/02/22 22:59 06:59 14:59 Intake Total 240 / 770 360 / 360 Output Total 1000 / 1150 700 / 1850 Balance -760 / -380 -700 / -1080 360 / 360 Physical Exam Const: COMMON NORMALS: no acute distress and alert GI: COMMON NORMALS: Soft to palpation INSPECTION: Yes abdominal distension AUSCULTATION: Yes normoactive bowel sounds PALPATION: Yes Soft to palpation and No Tenderness to palpation present (GI) Neuro: SENSORIUM/ORIENTATION: Yes alert Urinary Catheter Management: [place]: Cath Placed During This Visit: yes, but has since been removed by the nurse Reason for Continuing Indwelling Catheter: Acute Urinary Retention or Obstruction Urinary Catheter Date of Insertion: 11/22/22 Urinary Catheter Time of Insertion: 14:52 Date Urinary Catheter Removed: 11/21/22 Time Urinary Catheter Discontinued: 07:30 Data 11/29/22 04:44 12/02/22 03:50 A&P Assessment and plan (1) Ileus: Tolerating diet. Remains distended but does have bowel function. No surgical intervention. Attestations Medical Necessity Statement*: Per admitting physician. Coding Level of Care Code Acute Code for Chg Fwd Diagnoses Ileus K56.7
--- NOTE | 2022-12-02 10:12 | PC.SOCIAL ---
IMM Update pg 2 of IMM updated and reviewed w/ patient. CM signed verbal consent by patient. Copy dated, and initialed and placed in chart. Copy left @ bedside.
--- NOTE | 2022-12-02 13:57 | P.PN_ITS ---
Subjective Subjective: Patient was sleeping but had discussion with his at the bedside. His belly is still slightly distended but has good bowel sounds and apparently had a large bowel movement today has been up walking with physical therapy. Vitals/I&O/Wt Last Vital Signs Temp 97.6 F 12/02/22 12:00 Pulse 91 12/02/22 12:00 Resp 18 12/02/22 12:00 BP 157/84 12/02/22 12:00 Pulse Ox 93 12/02/22 12:00 O2 Del Method Room Air 12/02/22 12:00 O2 Flow Rate 2 11/30/22 07:43 12/01/22 12/02/22 12/02/22 22:59 06:59 14:59 Intake Total 240 / 770 480 / 480 Output Total 1000 / 1150 700 / 1850 Balance -760 / -380 -700 / -1080 480 / 480 Physical Exam Narrative: Resting comfortably in bed Urinary Catheter Management: [place]: Cath Placed During This Visit: yes, but has since been removed by the nurse Reason for Continuing Indwelling Catheter: Acute Urinary Retention or Obstruc tion Urinary Catheter Date of Insertion: 11/22/22 Urinary Catheter Time of Insertion: 14:52 Date Urinary Catheter Removed: 11/21/22 Time Urinary Catheter Discontinued: 07:30 Data 11/29/22 04:44 12/02/22 03:50 A&P Assessment and plan (1) Status post lumbar spinal fusion: Still having low back pain which is corrected from the surgery. This point anticipate discharge hopefully next week. Attestations Medical Necessity Statement*: Pain control Coding Level of Care Code Acute Code for Chg Fwd Diagnoses Status post lumbar spinal fusion Z98.1
--- NOTE | 2022-12-02 21:14 | PM.PN ---
Subjective Subjective: Patient remains very weak. Passing flatus and bowel movement earlier this morning. Abdominal still very distended. Denies fevers, chills, nausea or emesis. Oral intake has been poor. Medications: Reviewed: Yes Vitals/I&O/Wt Last Vital Signs Temp 98.2 F 12/02/22 19:28 Pulse 91 12/02/22 19:28 Resp 15 12/02/22 19:28 BP 153/80 12/02/22 19:28 Pulse Ox 94 12/02/22 19:28 O2 Del Method Room Air 12/02/22 19:28 O2 Flow Rate 2 11/30/22 07:43 12/02/22 12/02/22 12/02/22 06:59 14:59 22:59 Intake Total 480 / 480 240 / 720 Output Total 700 / 1850 Balance -700 / -1080 480 / 480 240 / 720 Physical Exam Narrative: General: Patient is awake. Frail appearing. Head: Normocephalic. Atraumatic. EOM intact. Neck: No JVD. Cardiovascular: RRR. No gallops. No murmurs. Lungs: Breath sounds are diminished in bilateral bases, no use of accessory muscles, no crackles or wheezes. Skin: No jaundice. No rashes. Abdomen: Markedly distended, firm. Bowel sounds are present. No TTP. No guarding. Extremities: No cyanosis or clubbing. Musculoskeletal: No overt joint deformity. Neurological: Moves all 4 extremities. No myoclonus. 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 Coding Level of Care Code Acute Code for Chg Fwd Diagnoses [place]man's syndrome K59.81 Ileus K56.7 Acute diastolic (congestive) heart failure I50.31 Urine retention R33.9 Atelectasis of both lungs J98.11
[2022-12-03] VITALS (11 sets, daily range): BP systolic 145–177; BP diastolic 79–84; PULSE 89–100; RESP 16–24; TEMP 36.5–37.6; O2SAT 94–96
[2022-12-03] MEDS: ipratropium-albuterol 3 mL Neb INHALATION ×3 (02:25→13:10)
[2022-12-03] MEDS: metoclopramide 5 mg/mL SDV 2 mL 10 MG IVP ×4 (03:55→21:04)
[2022-12-03 06:34] LABS: Basophils # 0.1 10^3/uL (0.0-0.1); Basophils % 0.7 %; Eosinophils # 0.4 10^3/uL (0.0-0.8); Eosinophils % 5.8 %; Hematocrit 31.6 % (42.0-52.0); Hemoglobin 9.9 g/dL (11.7-16.6); Lymphocytes # 0.8 10^3/uL (0.8-4.8); Lymphocytes % 11.4 %; Mean Corpuscular HGB Conc 31.3 g/dL (30.0-36.0); Mean Corpuscular Hemoglobin 31.1 pg (28.0-34.0); Mean Corpuscular Volume 99.4 fl (80-94); Mean Platelet Volume 10.3 fL (7.4-10.4); Monocytes # 0.6 10^3/uL (0.2-0.9); Monocytes % 7.8 %; Neutrophils # 5.16 10^3/uL (1.8-7.7); Neutrophils % 73.7 %; Nucleated Red Blood Cells % 0 %; Platelet Count 485 10^3/cmm (130-400); Red Blood Count 3.18 10^6/uL (4.1-5.3); Red Cell Distribution Width 13.3 % (12.1-15.1)
[2022-12-03 06:39] LABS: Magnesium 2.3 mg/dL (1.7-2.3); Phosphorus 3.3 mg/dL (2.5-4.5)
[2022-12-03] MEDS: cholecalciferol (vitamin D3) 1,000 unit Tablet 2000 UNIT PO (08:07)
[2022-12-03] MEDS: losartan 50 mg Tablet 25 MG PO (08:07)
[2022-12-03] MEDS: pantoprazole DR 40 mg Tablet PO (08:08)
[2022-12-03] MEDS: lactulose oral liq 20 gm/30 mL UDC 10 GM PO (08:08)
[2022-12-03] MEDS: enoxaparin 40 mg/0.4 mL Syringe SUBCUT (08:08)
[2022-12-03] MEDS: lidocaine 5% Patch 1 PATCH TOPICAL ×2 (08:09→22:44)
[2022-12-03] MEDS: budesonide 0.5 mg/2 mL Neb INHALATION (08:10)
[2022-12-03] MEDS: ketorolac 30 mg/mL INJ 15 MG IVP (08:51)
--- NOTE | 2022-12-03 09:22 | PM.PN ---
Subjective Subjective: Patient had 2 bowel movements this morning. Continues to complain of low back pain. Patient is currently in bed. Vitals/I&O/Wt Last Vital Signs Temp 97.7 F 12/03/22 08:00 Pulse 92 12/03/22 08:00 Resp 19 H 12/03/22 08:00 BP 177/79 12/03/22 08:07 Pulse Ox 94 12/03/22 08:00 O2 Del Method Room Air 12/03/22 08:00 O2 Flow Rate 2 11/30/22 07:43 12/02/22 12/03/22 12/03/22 22:59 06:59 14:59 Intake Total 240 / 720 Output Total 150 / 150 550 / 700 Balance 90 / 570 -550 / 20 Physical Exam Narrative: Patient's belly is soft moving all extremities. Urinary Catheter Management: [place]: Cath Placed During This Visit: yes, but has since been removed by the nurse Reason for Continuing Indwelling Catheter: Acute Urinary Retention or Obstruction Urinary Catheter Date of Insertion: 11/22/22 Urinary Catheter Time of Insertion: 14:52 Date Urinary Catheter Removed: 11/21/22 Time Urinary Catheter Discontinued: 07:30 Data 12/03/22 05:59 12/02/22 03:50 A&P Assessment and plan (1) Status post lumbar spinal fusion: This point patient is improving possibly discharge tomorrow to a rehab facility. Attestations Medical Necessity Statement*: Pain control Coding Level of Care Code Acute Code for Chg Fwd Diagnoses Status post lumbar spinal fusion Z98.1
--- NOTE | 2022-12-03 12:27 | PM.PN ---
Subjective Subjective: Patient has continued to move his bowels and is tolerating a diet. He subjectively feels less bloated. Vitals/I&O/Wt Last Vital Signs Temp 97.7 F 12/03/22 08:00 Pulse 92 12/03/22 08:00 Resp 19 H 12/03/22 08:00 BP 177/79 12/03/22 08:07 Pulse Ox 94 12/03/22 08:00 O2 Del Method Room Air 12/03/22 08:00 O2 Flow Rate 2 12/03/22 08:00 12/02/22 12/03/22 12/03/22 22:59 06:59 14:59 Intake Total 240 / 720 240 / 240 Output Total 150 / 150 550 / 700 450 / 450 Balance 90 / 570 -550 / 20 -210 / -210 Physical Exam Const: COMMON NORMALS: no acute distress and alert GI: COMMON NORMALS: Soft to palpation INSPECTION: No abdominal distension AUSCULTATION: Yes normoactive bowel sounds PALPATION: Yes Soft to palpation and No Tenderness to palpation present (GI) Neuro: SENSORIUM/ORIENTATION: Yes alert Urinary Catheter Management: [place]: Cath Placed During This Visit: yes, but has since been removed by the nurse Reason for Continuing Indwelling Catheter: Acute Urinary Retention or Obstruction Urinary Catheter Date of Insertion: 11/22/22 Urinary Catheter Time of Insertion: 14:52 Date Urinary Catheter Removed: 11/21/22 Time Urinary Catheter Discontinued: 07:30 Data 12/03/22 05:59 12/02/22 03:50 A&P Assessment and plan (1) Ileus: Ileus appears clinically resolved. Will sign off. Please reconsult if needed. Attestations Medical Necessity Statement*: Per admitting physician Coding Level of Care Code Acute Code for Chg Fwd Diagnoses Ileus K56.7
--- NOTE | 2022-12-03 18:36 | PM.PN ---
Subjective Subjective: Patient endorses passing flatus and BM. Reports abd is still distended but improving. Reports weakness. Denies fevers, chills, or headaches. Medications: Reviewed: Yes Vitals/I&O/Wt Last Vital Signs Temp 98.5 F 12/03/22 15:39 Pulse 100 12/03/22 15:39 Resp 17 12/03/22 15:39 BP 145/80 12/03/22 15:39 Pulse Ox 95 12/03/22 15:39 O2 Del Method Room Air 12/03/22 13:14 O2 Flow Rate 2 12/03/22 08:00 12/03/22 12/03/22 12/03/22 06:59 14:59 22:59 Intake Total 360 / 360 Output Total 550 / 700 450 / 450 625 / 1075 Balance -550 / 20 -90 / -90 -625 / -715 Physical Exam Narrative: General: Patient is awake. Frail appearing. Pleasant. Head: Normocephalic. Atraumatic. EOM intact. Neck: No JVD. Cardiovascular: RRR. No gallops. No murmurs. Lungs: Breath sounds are diminished in bilateral bases, no use of accessory muscles, no crackles or wheezes. Skin: No jaundice. No rashes. Abdomen: Mildly distended, firm. Bowel sounds are present. No TTP. No guarding. Extremities: No cyanosis or clubbing. Musculoskeletal: No overt joint deformity. Neurological: Moves all 4 extremities. No myoclonus. Urinary Catheter Management: [place]: Cath Placed During This Visit: yes, but has since been removed by the nurse Reason for Continuing Indwelling Catheter: Acute Urinary Retention or Obstruction Urinary Catheter Date of Insertion: 11/22/22 Urinary Catheter Time of Insertion: 14:52 Date Urinary Catheter Removed: 11/21/22 Time Urinary Catheter Discontinued: 07:30 Data 12/03/22 05:59 12/02/22 03:50 A&P Assessment and plan (1) Harman's syndrome: (2) Ileus: (3) Acute diastolic (congestive) heart failure: (4) Urine retention: (5) Atelectasis of both lungs: Plan Adynamic post-op ileus, resolving -Genreal -Status post 2 doses of neostigmine and methylnaltrexone -Encourage oral intake -Optimize electrolytes -Bowel regimen Post-op state -Continue PT -Needs post acute, CM working on placement Chronic heart failure -Compensated Post-op anemia -Stable DVT ppx: Lovenox Code status: Full Code Attestations Medical Necessity Statement*: Patient requires ongoing hospitalized care. Coding Level of Care Code Acute Code for Chg Fwd Diagnoses [place]'s syndrome K59.81 Ileus K56.7 Acute diastolic (congestive) heart failure I50.31 Urine retention R33.9 Atelectasis of both lungs J98.11
[2022-12-04] VITALS (12 sets, daily range): BP systolic 124–178; BP diastolic 77–93; PULSE 75–101; RESP 18–25; TEMP 36.8–37.1; O2SAT 93–96
[2022-12-04] MEDS: ketorolac 30 mg/mL INJ 15 MG IVP ×3 (00:01→20:25)
[2022-12-04] MEDS: metoclopramide 5 mg/mL SDV 2 mL 10 MG IVP ×4 (04:49→21:41)
[2022-12-04 05:09] LABS: Basophils % 0.5 %; Eosinophils # 0.5 10^3/uL (0.0-0.8); Eosinophils % 6.9 %; Hematocrit 35.2 % (42.0-52.0); Hemoglobin 11.1 g/dL (11.7-16.6); Lymphocytes # 0.9 10^3/uL (0.8-4.8); Lymphocytes % 10.9 %; Mean Corpuscular HGB Conc 31.5 g/dL (30.0-36.0); Mean Corpuscular Hemoglobin 31.6 pg (28.0-34.0); Mean Corpuscular Volume 100.3 fl (80-94); Mean Platelet Volume 9.8 fL (7.4-10.4); Monocytes # 0.7 10^3/uL (0.2-0.9); Monocytes % 8.9 %; Neutrophils # 5.69 10^3/uL (1.8-7.7); Neutrophils % 72.3 %; Nucleated Red Blood Cells % 0 %; Platelet Count 453 10^3/cmm (130-400); Red Blood Count 3.51 10^6/uL (4.1-5.3); Red Cell Distribution Width 13.7 % (12.1-15.1); White Blood Count 7.9 10^3/uL (4.0-10.0)
[2022-12-04 05:27] LABS: Anion Gap 13.1 (5-19); Blood Urea Nitrogen 14 mg/dL (8-23); Calcium 8.4 mg/dL (8.5-10.5); Carbon Dioxide 24 mmol/L (22-29); Chloride 106 mmol/L (98-107); Glucose 118 mg/dL (65-115); Magnesium 2.1 mg/dL (1.7-2.3); Potassium 4.1 mmol/L (3.5-5.1); Sodium 139 mmol/L (136-145)
--- NOTE | 2022-12-04 06:38 | PM.PN ---
Subjective Subjective: Patient is complaining of back pain this morning. His family is present his states that she is concerned that by them pulling him out of bed he is had changes with his back. States the bowels are working well. Vitals/I&O/Wt Last Vital Signs Temp 98.4 F 12/04/22 04:00 Pulse 92 12/04/22 04:00 Resp 18 12/04/22 04:00 BP 136/78 12/04/22 04:00 Pulse Ox 95 12/04/22 04:00 O2 Del Method Room Air 12/04/22 04:00 O2 Flow Rate 2 12/03/22 08:00 12/03/22 12/03/22 12/04/22 14:59 22:59 06:59 Intake Total 360 / 360 Output Total 450 / 450 1175 / 1625 400 / 5 Balance -90 / -90 -1175 / -1265 -400 / -1665 Physical Exam Narrative: Patient presents alert and oriented x3 with a good general appearance normal mood and affect.? Mild tenderness around the incisional site with the incision appear to be healing nicely.? No signs of erythema or drainage.? No signs of infection.? Patient denies any fevers or chills.? 4/5 motor strength both lower extremities with negative straight leg raise bilaterally.? Calves are supple no medial thigh tenderness.? Pulses are 2+ at the dorsalis pedis and posterior tibial region.? Good capillary refill throughout normal sensation light touch both lower extremities. Urinary Catheter Management: [place]: Cath Placed During This Visit: yes, but has since been removed by the nurse Reason for Continuing Indwelling Catheter: Acute Urinary Retention or Obstruction Urinary Catheter Date of Insertion: 11/22/22 Urinary Catheter Time of Insertion: 14:52 Date Urinary Catheter Removed: 11/21/22 Time Urinary Catheter Discontinued: 07:30 Data 12/04/22 04:58 12/04/22 04:58 A&P Assessment and plan (1) Ileus: Urged him to continue walking program. We will obtain a new AP and lateral radiograph of his thoracolumbar spine. (2) Status post lumbar spinal fusion: Attestations Medical Necessity Statement*: Hopeful discharge to rehab facility today. Coding Level of Care Code Acute Code for [facility] Fwd Diagnoses Ileus K56.7 Status post lumbar spinal fusion Z98.1
--- NOTE | 2022-12-04 06:41 | XRR_ITS ---
PROCEDURE INFORMATION: Exam: XR Lumbosacral Spine Exam date and time: 12/04/2022 9:04 AM Age: 76 years old Clinical indication: Device placement; Other; Spinal fusion; Prior surgery; Surgery date: Post-operative (0-2 days); Additional info: Spinal fusion, thoracolumbar xray TECHNIQUE: Imaging protocol: Radiologic exam of the lumbosacral spine. Views: 2 or 3 views. COMPARISON: OT XR lumbar spine 2-3V* [id number] 11/20/2022 9:47 AM FINDINGS: Bones/joints: Osteopenia and osteoarthritis is seen. There is extensive metallic orthopedic hardware present with transpedicular screws and metallic rods in place extending from the T10 level to the iliac bones . This hardware is intact. No acute fracture. Normal alignment. Soft tissues: Unremarkable. XR/XR lumbar spine 2-3V* [id number] IMPRESSION: 1. Osteopenia and osteoarthritis. 2. Negative for acute bony abnormalities 3. Extensive orthopedic hardware is in place as described
[2022-12-04] MEDS: enoxaparin 40 mg/0.4 mL Syringe SUBCUT (08:08)
[2022-12-04] MEDS: cholecalciferol (vitamin D3) 1,000 unit Tablet 2000 UNIT PO (08:08)
[2022-12-04] MEDS: lidocaine 5% Patch 1 PATCH TOPICAL (08:08)
[2022-12-04] MEDS: losartan 50 mg Tablet 25 MG PO (08:08)
[2022-12-04] MEDS: pantoprazole DR 40 mg Tablet PO (08:09)
[2022-12-04] MEDS: lactulose oral liq 20 gm/30 mL UDC 10 GM PO (08:09)
[2022-12-04] MEDS: ipratropium-albuterol 3 mL Neb INHALATION ×3 (08:20→19:27)
[2022-12-04] MEDS: budesonide 0.5 mg/2 mL Neb INHALATION ×2 (08:21→19:27)
[2022-12-04 09:13] LABS: SARS Covid-2 Antigen negative (Negative)
--- NOTE | 2022-12-04 14:04 | PC.SOCIAL ---
IMM updated Updated pt on IMM. No questions voiced. Provided pt a copy. Initialed, dated, & timed copy in chart.
--- NOTE | 2022-12-04 18:03 | PM.PN ---
Subjective Subjective: Patient is complaining of back pain this morning. His family is present his states that she is concerned that by them pulling him out of bed he is had changes with his back. States the bowels are working well. Medications: Reviewed: Yes Medication Review Details: Generic Name Dose Route Start Last Admin Trade Name Freq PRN Reason Stop Dose Admin Acetaminophen 650 mg 11/20/22 13:23 12/04/22 00:00 Acetaminophen 32 5 Mg Tablet PO 650 mg Q4H PRN Administration Mild Pain or feve r >101.5 Albuterol/Ipratrop ium 3 ml 11/23/22 14:00 12/04/22 13:31 Ipratropium-Albu terol 3 Ml Neb INHALATION 3 ml Q6H.RESP RESHMA Administration Budesonide 0.5 mg 11/28/22 20:00 12/04/22 08:21 Budesonide 0.5 M g/2 Ml Neb INHALATION 0.5 mg BID.RESPIRATORY S CH Administration Docusate Sodium 100 mg 11/20/22 18:00 11/27/22 10:48 Docusate Sodium 100 Mg Capsule PO Not Given BID RESHMA Enoxaparin Sodium 40 mg 11/28/22 09:00 12/04/22 08:08 Enoxaparin 40 Mg /0.4 Ml Syringe SUBCUT 40 mg Q24H RESHMA Administration Multivitamins 10 m l/ Amino 1,010 mls @ 0 mls /hr 11/27/22 14:30 11/30/22 21:43 Acids/Electrolyt es IV Infused .Q0M RESHMA Infusion Protocol As Directed Ketorolac Trometha mine 15 mg 12/01/22 10:38 12/04/22 07:54 Ketorolac 30 Mg/ Ml Inj IVP 12/06/22 10:37 15 mg Q6H PRN Administration MODERATE PAIN Lactulose 10 gm 11/30/22 09:00 12/04/22 08:09 Lactulose Oral L iq 20 Gm/30 Ml Udc PO 10 gm DAILY RESHMA Administration Lanolin 1 applic 11/20/22 21:07 11/20/22 21:37 Lanolin Oint 7 G m TOPICAL 1 applic PRN PRN Administration DRYNESS Lidocaine 1 patch 12/01/22 21:00 12/04/22 08:08 Lidocaine 5% Pat ch TOPICAL 1 patch [id number] RESHMA Administration Losartan Potassium 25 mg 11/21/22 09:00 12/04/22 08:08 Losartan 50 Mg T ablet PO 25 mg DAILY RESHMA Administration Magnesium Hydroxid e 30 ml 11/20/22 13:23 11/23/22 17:06 Magnesium Hydrox steve 30 Ml Udc PO 30 ml Q4H PRN Administration Constipation/karina gestion Metoclopramide HCl 10 mg 11/27/22 09:50 12/04/22 17:08 Metoclopramide 5 Mg/Ml Sdv 2 Ml IVP 10 mg Q6H RESHMA Administration Neostigmine Methyl sulfate 2 mg 11/24/22 14:45 11/24/22 16:04 Neostigmine 1 Mg /Ml Sdv 10 Ml IV 2 mg ONCE RESHMA Administration Neostigmine Methyl sulfate 2 mg 11/26/22 12:45 11/26/22 13:37 Neostigmine 1 Mg /Ml Sdv 10 Ml IV 2 mg ONCE RESHMA Administration Non-Formulary Medi cation 1 tab 11/20/22 13:30 11/27/22 10:48 Fiber Well PO Not Given DAILY RESHMA Ondansetron HCl 4 mg 11/20/22 13:23 11/26/22 13:50 Ondansetron 2 Mg /Ml Sdv 2 Ml IVP 4 mg Q6H PRN Administration NAUSEA AND VOMITI NG Pantoprazole Sodiu m 40 mg 11/24/22 09:00 12/04/22 08:[address] 40 Mg Tablet PO 40 mg DAILY RESHMA Administration Polyethylene Glyco l 17 gm 11/23/22 09:00 11/27/22 10:49 Polyethylene Gly col 3350 Pkt 17 Gm PO Not Given DAILY RESHMA Vitamin D 2,000 unit 11/21/22 09:00 12/04/22 08:08 Cholecalciferol (Vitamin D3) 1,000 Unit Tablet PO 2,000 unit DAILY RESHMA Administration Vitals/I&O/Wt Last Vital Signs Temp 98.2 F 12/04/22 16:00 Pulse 89 12/04/22 16:00 Resp 20 H 12/04/22 16:00 BP 124/78 12/04/22 16:00 Pulse Ox 96 12/04/22 16:00 O2 Del Method Room Air 12/04/22 16:00 O2 Flow Rate 2 12/04/22 08:00 12/04/22 12/04/2212/04/23 06:59 14:59 22:59 Intake Total 960 / 960 480 / 1440 Output Total 2024 400 / 400 400 / 800 Balance -400 / -1665 560 / 560 80 / 640 Physical Exam HENMT: COMMON NORMALS: normocephalic and atraumatic HEAD & SCALP: normocephalic and atraumatic Resp: COMMON NORMALS: normal respiratory effort, No retractions, No use of accessory muscles and clear to auscultation bilaterally EFFORT & INSPECTION: Yes symmetric chest movement AUSCULTATION: clear to auscultation bilaterally Cardio: COMMON NORMALS: regular rate, regular rhythm, S1 normal heart sound present, S2 normal heart sound present, No gallops present (Cardio), No murmurs present (Cardio), No rub (Cardio) and Peripheral pulses 2+ throughout RATE: regular rate RHYTHM: regular rhythm HEART SOUNDS: S1 normal heart sound present and S2 normal heart sound present PERIPHERAL PULSES: Peripheral pulses 2+ throughout GI: COMMON NORMALS: Normal to inspection, nondistended, normoactive bowel sounds present, Soft to palpation, non-tender, No hepatosplenomegaly present and no masses AUSCULTATION: Yes normoactive bowel sounds PALPATION: Yes Soft to palpation and Yes No hepatosplenomegaly present RECTAL EXAM: Yes deferred Extremity: COMMON NORMALS: no clubbing, cyanosis or edema and no pedal edema Urinary Catheter Management: [place]: Cath Placed During This Visit: yes, but has since been removed by the nurse Reason for Continuing Indwelling Catheter: Acute Urinary Retention or Obstruction Urinary Catheter Date of Insertion: 11/22/22 Urinary Catheter Time of Insertion: 14:52 Date Urinary Catheter Removed: 11/21/22 Time Urinary Catheter Discontinued: 07:30 Data 12/04/22 04:58 12/04/22 04:58 A&P Assessment and plan (1) [place]'s syndrome: (2) Ileus: (3) Acute diastolic (congestive) heart failure: (4) Urine retention: (5) Atelectasis of both lungs: Plan Adynamic ileus Status post 2 doses of neostigmine and methylnaltrexone 1 dose Has received bowel regimen Patient is having a bowel movement, passing flatus Prior authorization started Patient is not in active state of diastolic CHF exacerbation compensated now Physical therapy twice a day Improved p.o. intake and ambulation KUB has not shown significant improvement despite his bowel movement and passage of flatus Attestations Medical Necessity Statement*: Currently awaiting halfway placement. Coding Level of Care Code Acute Code for Chg Fwd Diagnoses Harman's syndrome K59.81 Ileus K56.7 Acute diastolic (congestive) heart failure I50.31 Urine retention R33.9 Atelectasis of both lungs J98.11
[2022-12-04] MEDS: acetaminophen 325 mg Tablet 650 MG PO ×2 (20:26)
[2022-12-05] VITALS (8 sets, daily range): BP systolic 131–166; BP diastolic 71–84; PULSE 78–91; RESP 16–23; TEMP 36.4–37.1; O2SAT 93–95
[2022-12-05] MEDS: ipratropium-albuterol 3 mL Neb INHALATION ×2 (01:13→08:34)
[2022-12-05] MEDS: ketorolac 30 mg/mL INJ 15 MG IVP ×2 (02:40→09:33)
[2022-12-05] MEDS: acetaminophen 325 mg Tablet 650 MG PO (02:42)
[2022-12-05] MEDS: metoclopramide 5 mg/mL SDV 2 mL 10 MG IVP ×2 (03:22→09:31)
--- NOTE | 2022-12-05 07:30 | PM.PN ---
Vitals/I&O/Wt Last Vital Signs Temp 98.7 F 12/05/22 03:55 Pulse 78 12/05/22 03:55 Resp 20 H 12/05/22 03:55 BP 166/78 12/05/22 03:55 Pulse Ox 95 12/05/22 03:55 O2 Del Method Room Air 12/05/22 03:55 O2 Flow Rate 2 12/04/22 08:00 12/04/22 12/05/22 12/05/22 22:59 06:59 14:59 Intake Total 720 / 1680 Output Total 400 / 800 350 / 1150 Balance 320 / 880 -350 / 530 Physical Exam Narrative: Patient presents alert and oriented x3 with a good general appearance normal mood and affect.? Mild tenderness around the incisional site with the incision appear to be healing nicely.? No signs of erythema or drainage.? No signs of infection.? Patient denies any fevers or chills.? 4/5 motor strength both lower extremities with negative straight leg raise bilaterally.? Calves are supple no medial thigh tenderness.? Pulses are 2+ at the dorsalis pedis and posterior tibial region.? Good capillary refill throughout normal sensation light touch both lower extremities. Urinary Catheter Management: [place]: Cath Placed During This Visit: yes, but has since been removed by the nurse Reason for Continuing Indwelling Catheter: Acute Urinary Retention or Obstruction Urinary Catheter Date of Insertion: 11/22/22 Urinary Catheter Time of Insertion: 14:52 Date Urinary Catheter Removed: 11/21/22 Time Urinary Catheter Discontinued: 07:30 Data 12/04/22 04:58 12/04/22 04:58 Xray Ortho: Radiologist's impression: XR/XR lumbar spine 2-3V* [id number] IMPRESSION: 1. ? Osteopenia and osteoarthritis. 2. ? Negative for acute bony abnormalities 3. ? Extensive orthopedic hardware is in place as described A&P Assessment and plan (1) Ileus: Continue walking program. Continue incentive spirometry for pulmonary toilet. Okay from orthopedic standpoint to transfer to rehab facility when medically stable. We will see him back in the office in 1 week's time for wound check. No bending lifting or twisting activities. (2) Status post lumbar spinal fusion: Attestations Medical Necessity Statement*: Defer to medical team Coding Level of Care Code Acute Code for Chg Fwd Diagnoses Ileus K56.7 Status post lumbar spinal fusion Z98.1
[2022-12-05] MEDS: budesonide 0.5 mg/2 mL Neb INHALATION (08:33)
[2022-12-05] MEDS: enoxaparin 40 mg/0.4 mL Syringe SUBCUT (08:47)
[2022-12-05] MEDS: losartan 50 mg Tablet 25 MG PO (08:48)
[2022-12-05] MEDS: lactulose oral liq 20 gm/30 mL UDC 10 GM PO (08:48)
[2022-12-05] MEDS: cholecalciferol (vitamin D3) 1,000 unit Tablet 2000 UNIT PO (08:48)
[2022-12-05] MEDS: lidocaine 5% Patch 1 PATCH TOPICAL (08:49)
[2022-12-05] MEDS: pantoprazole DR 40 mg Tablet PO (09:00)
--- NOTE | 2022-12-05 17:10 | PM.DCS ---
Discharge Providers Date of Admission: 11/21/22 08:00 Date of Discharge: December 05, 2022 Attending Provider at Admission: Goldy Chavez DO Attending Provider at Discharge: Michael Ivory MD Primary Care Provider: Carla Allen MD Diagnoses at Discharge Discharge Diagnosis (1) Ileus: Status: Acute (2) Status post lumbar spinal fusion: Status: Acute Reason for Visit Reason for Visit: L3 to pelvis fusion with decompression from L3-S1 Hospital Course Hospital Course 76 year old male admitted on November 20 secondary to back pain who underwent T10 to pelvis fusion. Medicine was initially consulted?for the management of shortness of breath, patient had developed acute diastolic Heart failure, for which he was given, LasiX, 2D echo was done: Normal left ventricular size, systolic function with no?regional wall motion abnormalities. Left ventricular ejection?fraction is estimated at 60 %. Normal diastolic function. Mild aortic valve regurgitation.Diastolic heart failure had resolved at the time of discharge, during the hospital stay patient also developed , Harman syndrome (adynamic ileus) s/p 2 doses of neostigmine and methylnaltrexone 1 dose, was also on laxatives, as well as other conservative management for adynamic ileus, Surgery was on board, at the time of discharge, ileus had resolved, patient had also received PRBC transfusion, for acute postop blood loss anemia, patient also had atelectasis of both lungs, was advised incentive spirometer, for acute urinary retention Hatfield catheter was in place. Overall patient responded well to above medical and surgical management, he was discharged in stable condition to SNF.He will continue to follow orthopedic as outpatient. Physical Exam HENMT: COMMON NORMALS: normocephalic and atraumatic HEAD & SCALP: normocephalic and atraumatic Resp: COMMON NORMALS: clear to auscultation bilaterally EFFORT & INSPECTION: Yes symmetric chest movement AUSCULTATION: clear to auscultation bilaterally Cardio: COMMON NORMALS: regular rate, regular rhythm, S1 normal heart sound present, S2 normal heart sound present, No gallops present (Cardio), No murmurs present (Cardio), No rub (Cardio) and Peripheral pulses 2+ throughout RATE: regular rate RHYTHM: regular rhythm HEART SOUNDS: S1 normal heart sound present and S2 normal heart sound present PERIPHERAL PULSES: Peripheral pulses 2+ throughout GI: COMMON NORMALS: Normal to inspection, nondistended, normoactive bowel sounds present, Soft to palpation, non-tender, No hepatosplenomegaly present and no masses AUSCULTATION: Yes normoactive bowel sounds PALPATION: Yes Soft to palpation and Yes No hepatosplenomegaly present RECTAL EXAM: Yes deferred Extremity: COMMON NORMALS: no clubbing, cyanosis or edema and no pedal edema Urinary Catheter Management: [place]: Cath Placed During This Visit: yes, but has since been removed by the nurse Reason for Continuing Indwelling Catheter: Acute Urinary Retention or Obstruction Urinary Catheter Date of Insertion: 11/22/22 Urinary Catheter Time of Insertion: 14:52 Date Urinary Catheter Removed: 11/21/22 Time Urinary Catheter Discontinued: 07:30 Discharge Data Studies Completed and Pending Completed Studies During Hospitalization Category Date Time Status CT abdomen pelvis wo con [id number] Stat Cat Scan 11/24/22 04:37 Completed CXRP [XR chest 1V portable [id number]] Routine Exams 11/28/22 13:12 Completed XR KUB portable [id number] Routine Exams 11/28/22 06:00 Completed XR KUB portable [id number] Routine Exams 12/01/22 08:10 Completed XR acute abdomen series [id number] Routine Exams 11/25/22 10:12 Completed XR chest 1V portable [id number] Routine Exams 11/28/22 05:18 Completed XR chest 1V portable [id number] Stat Exams 11/23/22 00:27 Completed XR lumbar spine 2-3V* [id number] Routine Exams 11/20/22 Completed XR lumbar spine 2-3V* [id number] Routine Exams 12/04/22 06:41 Completed CV. echo complete* [id number] Routine Ultrasound 11/23/22 08:25 Completed Radiology Impressions Abdomen/Pelvis CT 11/24/22 04:37 IMPRESSION: 1. Bowel dilatation, disproportionately involving the colon, in a pattern of ileus. 2. Additional findings as described above. COMMENTS: Consistent with the [employer]'s Incidental Findings Committee white paper (J Am Luis F Radiol 2017): For any incidental adrenal lesion greater than or equal to 1 cm but less than or equal to 4 cm classified in this report as benign, likely benign, or containing fat (including classification as an adenoma or myelolipoma), no follow-up imaging is recommended per consensus recommendations based on imaging criteria. Further lab evaluation could be pursued if warranted based on clinical findings. Chest/Abdomen X-ray 11/25/22 10:12 IMPRESSION: Stable colonic distention that appears to represent combination of colonic ileus and mild constipation. Chest X-Ray 11/28/22 13:12 IMPRESSION: 1. Right-sided PICC line ending in the expected region of the cavoatrial junction. No acute process identified. 2. Additional minor findings as above. KUB X-Ray 12/01/22 08:10 IMPRESSION: 1. Gaseous distention of both large and small bowel loops showing little change since prior study. The appearance favors adynamic ileus. Bowel obstruction considered much less likely. Lumbar Spine X-Ray 12/04/22 06:41 IMPRESSION: 1. Osteopenia and osteoarthritis. 2. Negative for acute bony abnormalities 3. Extensive orthopedic hardware is in place as described Laboratory Results WBC 7.9 10^3/uL (4.0-10.0) 12/04/22 04:58 RBC 3.51 10^6/uL (4.1-5.3) L 12/04/22 04:58 Hgb 11.1 g/dL (11.7-16.6) L 12/04/22 04:58 Hct 35.2 % (42.0-52.0) L 12/04/22 04:58 MCV 100.3 fl (80-94) H 12/04/22 04:58 MCH 31.6 pg (28.0-34.0) 12/04/22 04:58 MCHC 31.5 g/dL (30.0-36.0) 12/04/22 04:58 RDW 13.7 % (12.1-15.1) 12/04/22 04:58 Plt Count 453 10^3/cmm (130-400) H 12/04/22 04:58 MPV 9.8 fL (7.4-10.4) 12/04/22 04:58 Neut % (Auto) 72.3 % 12/04/22 04:58 Lymph % (Auto) 10.9 % 12/04/22 04:58 Hartley % (Auto) 8.9 % 12/04/22 04:58 Eos % (Auto) 6.9 % 12/04/22 04:58 Baso % (Auto) 0.5 % 12/04/22 04:58 Neut # (Auto) 5.69 10^3/uL (1.8-7.7) 12/04/22 04:58 Lymph # (Auto) 0.9 10^3/uL (0.8-4.8) 12/04/22 04:58 Hartley # (Auto) 0.7 10^3/uL (0.2-0.9) 12/04/22 04:58 Eos # (Auto) 0.5 10^3/uL (0.0-0.8) 12/04/22 04:58 Baso # (Auto) 0.0 10^3/uL (0.0-0.1) 12/04/22 04:58 Nucleated RBC % (auto) 0 % 12/04/22 04:58 Nucleated RBCs # 0.0 /100WBC 12/04/22 04:58 Sodium 139 mmol/L (136-145) 12/04/22 04:58 Potassium 4.1 mmol/L (3.5-5.1) 12/04/22 04:58 Chloride 106 mmol/L (98-107) 12/04/22 04:58 Carbon Dioxide 24 mmol/L (22-29) 12/04/22 04:58 Anion Gap 13.1 (5-19) 12/04/22 04:58 BUN 14 mg/dL (8-23) 12/04/22 04:58 Creatinine 0.8 mg/dL (0.7-1.2) 12/04/22 04:58 GFR Calculation Not Reportable 12/04/22 04:58 Glucose 118 mg/dL (65-115) H 12/04/22 04:58 Calculated Osmolality 294 mOsm/kg (285-295) 12/02/22 03:50 Lactate 1.5 mmol/L (0.5-2.2) 11/28/22 04:20 Calcium 8.4 mg/dL (8.5-10.5) L 12/04/22 04:58 Phosphorus 3.0 mg/dL (2.5-4.5) 12/04/22 04:58 Magnesium 2.1 mg/dL (1.7-2.3) 12/04/22 04:58 Total Bilirubin 0.4 mg/dL (0.15-1.2) 11/25/22 05:29 AST 42 U/L (0-40) H 11/25/22 05:29 ALT 23 U/L (0-41) 11/25/22 05:29 Alkaline Phosphatase 63 U/L (40-130) 11/25/22 05:29 NT-Pro-B Natriuret Pep 1127 pg/mL (0-450) H 11/23/22 06:42 Total Protein 5.9 g/dL (6.6-8.7) L 11/25/22 05:29 Albumin 3.0 g/dL (3.5-5.2) L 12/04/22 04:58 Globulin 2.8 g/dL (1.3-4.6) 11/25/22 05:29 SARS-CoV-2 Ag (Rapid) negative (Negative) 12/04/22 08:01 Blood Type A Positive 11/20/22 08:30 Rho(D) Type Positive 11/20/22 08:30 Antibody Screen Negative 11/20/22 08:30 Crossmatch See Detail 11/20/22 08:30 Vitals Last Vital Signs Temp 97.6 F 12/05/22 14:52 Pulse 91 12/05/22 14:52 Resp 18 12/05/22 14:52 BP 131/71 12/05/22 14:52 Pulse Ox 93 12/05/22 14:52 O2 Del Method Room Air 12/05/22 12:00 O2 Flow Rate 2 12/04/22 08:00 Discharge Plan Discharge Patient Disposition: Xfer SNF Condition: Stable Prescriptions: New acetaminophen 325 mg Tablet 650 mg PO Q4H PRN (Reason: Mild Pain or fever >101.5) 15 Days Qty: 30 0RF lidocaine 5 % Adhesive Patch,Medicated 1 patch topical [id number] 14 Days Qty: 28 0RF Continued etodolac 400 mg tablet 400 mg PO BID Fiber Well 1 tab PO QDAY cholecalciferol (vitamin D3) 50 mcg (2,000 unit) capsule 50 mcg PO DAILY tramadol 50 mg tablet 50 mg PO TID PRN (Reason: pain) Qty: 90 5RF (DME) Bone Growth Stimulator [id number] See Rx Instructions .Route .MEDSUPPLY Qty: 1 0RF Rx Instructions: As directed. losartan 25 mg tablet 25 mg PO DAILY Discontinued (DME) Intraoperative Neuromonitoring See Rx Instructions .Route .MEDSUPPLY Qty: 1 0RF Rx Instructions: As directed Discharge Orders: Discharge Order (Routine); Ordered 12/05/22 Ordered By: Michael Ivory Referrals: [facility] [Outside] Discharge Diet: Advance as tolerated Discharge Activity: Limit activity as instructed Patient Instructions: Lidocaine (On the skin), Ileus (GEN), Opioid Safety Activity Restrictions/Additional Instructions: Thank you for choosing [facility] for your care! The following is a list of instructions, from your provider, to follow upon your discharge to ensure you have the optimal recovery from your recent injury or surgery. Follow-up care is a armenta part of your treatment and safety. Be sure to make and go to all appointments and call your doctor if you are having problems. If you do not already have a follow-up appointment made, call Dr. Chavez's] office in the next 1-3 days to make follow up appointment for 1 weeks at [phone]. It is also a good idea to know your test results and keep a list of the medicines you take. Medications will be prescribed for you at your provider's discretion. These medications are to be used as instructed; if they are taken more often that prescribed they will not be refilled early and in most cases will not be refilled at all. > When a refill is needed, you should contact mayra loja 2-3 business days before your prescription runs out. Medications will NOT be refilled by transportation technician providers after hours! > Many pain medications contain Tylenol (Acetaminophen). Do not consume more than 4,000 mg of Tylenol per day in total with any combination of medications. > Pain medications can cause constipation. Please use an over the counter stool softener as directed, while taking pain medications. Consult your local pharmacist with questions or recommendations on stool softeners. If constipation persists, contact our office or your primary care provider. > While under our care, you are not to receive pain medications or other controlled substances from any other provider unless our office is notified and approves. Any attempts to do so will result in refusal to prescribe any further pain medications and possible dismissal from our practice. ? Walking is essential for the healing process after surgery. We would like you to slowly advance your walking. This should be done on relatively flat clear ground (inside or out) or can be done on a treadmill. Remember this goal does not have to happen all at once, slowly increase your distance and duration. This can be broken into more more than one walk per day as tolerated. Patients who walk as directed after surgery rarely require Physical Therapy. In the unlikely event this issue arises your provider will direct hospital staff to make the appropriate arrangements. ? No lifting over 5 pounds {a gallon of milk) or bending/twisting until further notice. Each of these activities places an unnecessary amount of stress onto the body and can impede the delicate healing process. > Instead of bending at the waist, keep your back straight and bend at the knees. > Instead of twisting your torso, keep your back straight and turn your entire body with your feet. ? You may sleep in any position which makes you comfortable. Many patients find comfort sleeping in a reclining chair. It is not abnormal to have difficulty sleeping for the first several weeks following your surgery. We recommend trying Benadry! or Tylenol PM as directed to help with your sleeping difficulties. Both medications are over the counter and available without prescription. ? NO SMOKING!!! Smoking dramatically increases the probability of developing postoperative wound infections. ? Common complaints after lumbar and/or thoracic spine surgery include, but are not limited to: numbness and/or tingling in the legs, pain around the incision and surrounding tissues, muscle spasms, or stiffness of the middle to low back. Contact our office if these symptoms persist or if an acute change occurs. ? No driving for the first 3-5days, and not while taking narcotics until seen at your follow-up appointment and cleared. There are no restrictions for riding on short trips, however if you take a longer trip, arrangements should be made to make regular stops to get out of the vehicle and stretch . ? Swelling is an unfortunate event that will take place with any surgery and is the primary source of your postoperative discomfort. While walking and regular approved activities helps control inflammation, there are additional steps you can take to minimize swelling. > Place ice over the surgical site and surrounding tissue for twenty minutes, followed by applying a low/medium heat (heating pad) for an additional twenty minutes every 1-2 hours as needed for painrelief. > You may use of over the counter anti-inflammatory medications (Ibuprofen, Motrin, Aleve, Advil, etc) as directed on the package label. These types of medicines will significantly reduce the amount of discomfort you experience after surgery from swelling. It should be noted that if you have and allergy to any of these medications, or a history of ulcers or kidney disease you should consult you primary care provider prior to starting these medications. Discharge Attestations Time Spent in Discharge Care*: less than 30 min Quality Metrics Clinical Quality Measures [ No reported AMI, CVA or VTE this stay] Coding Level of Care Code Acute Code for Chg Fwd Diagnoses Ileus K56.7 Status post lumbar spinal fusion Z98.1
--- NOTE | 2022-12-05 17:30 | PC.NURSE ---
PATIENT'S CAME BACK TO THE FLOOR AFTER PATIENT WAS DISCHARGED TO [facility]. WAS DISTRAUGHT AT THE SHAPE OF [facility]. SHE STATED THAT THE FACILITY WAS INCREDIBLY DIRTY, SMELLED, AND THAT SHE COULDN'T LEAVE HIM THERE. THIS NURSE CONTACTED CASE MANAGEMENT TO SEE WHAT WE COULD DO TO HELP. CASE MANAGEMENT INSTRUCTED PATIENT'S TO CONTACT THE CASE MANAGEMENT AT [facility] TO TRY AND TRANSFER TO ANOTHER FACILITY. COLLEEN WITH CASE MANAGEMENT STATED SHE WOULD FOLLOW UP TO SEE IF SHE COULD HELP.
== END 2022-12-05 14:54 | disposition skilled nursing facility (03) | DRG 453 ==
LOC: MEDSURG 13:38
PROVIDERS: Internal Medicine; Physician Assistant; Admitting Provider Orthopaedic Surgery; PCP Family Medicine; Visit Provider Internal Medicine
PROC: 0RG707J Fusion of 2 to 7 Thoracic Vertebral Joints with Autologous Tissue Substitute, Posterior Approach, Anterior Column, Open Approach (ICD-10-PCS; principal; 2022-11-20 11:30)
PROC: 0RG707J Fusion of 2 to 7 Thoracic Vertebral Joints with Autologous Tissue Substitute, Posterior Approach, Anterior Column, Open Approach (ICD-10-PCS; CPT 63005; 2022-11-20 11:30)
DX: M48.062 Spinal stenosis, lumbar region with neurogenic claudication (principal); I50.31 Acute diastolic (congestive) heart failure; D62 Acute posthemorrhagic anemia; J98.11 Atelectasis; R33.9 Retention of urine, unspecified; K59.00 Constipation, unspecified; I11.0 Hypertensive heart disease with heart failure; K59.81 Ogilvie syndrome; Z79.891 Long term (current) use of opiate analgesic; Z87.891 Personal history of nicotine dependence
CPT/HCPCS: 12345; 36415; 36430; 36569; 51702; 51798; 71045; 72100; 74018; 74022; 74176; 80048; 80053; 80069; 83605; 83735; 83880; 84100; 85014; 85018; 85025; 86850; 86900; 86920; 87426; 93005; 93306; 94640; 96372; 97110; 97116; 97162; 97530; C1713; G0378; J0131; J0330; J0690; J1100; J1644; J1650; J1885; J1940; J2212; J2270; J2370; J2405; J2543; J2704; J2710; J2765; J3010; J3370; J3480; J3490; J7030; J7040; J7120; J7626; P9016; P9045; Q3014

== ENCOUNTER → 2022-12-19 07:59 | Outpatient (BNVA) | payer OTHER, SELFPAY | PROVIDERS: PCP Family Medicine; Visit Provider Orthopaedic Surgery | DX: Z48.89 Encounter for other specified surgical aftercare (principal) | CPT/HCPCS: 72100; 99024 ==

== ENCOUNTER 2023-01-15 15:52 | Outpatient (RCR) | payer MEDICARE, SELFPAY | END 2023-01-29 23:59 | disposition home or self-care (01) | LOC: SPT 15:52 | PROVIDERS: PCP Family Medicine; Visit Provider Orthopaedic Surgery | DX: Z98.1 Arthrodesis status (principal) | CPT/HCPCS: 97110; 97161 ==

== ENCOUNTER → 2023-01-16 13:38 | Outpatient (BNVA) | payer MEDICARE, SELFPAY | PROVIDERS: PCP Family Medicine; Visit Provider Orthopaedic Surgery | DX: Z98.890 Other specified postprocedural states (principal) | CPT/HCPCS: 72100; 99024 ==

== ENCOUNTER 2023-01-30 06:00 | Outpatient (RCR) | payer OTHER, MEDICARE, SELFPAY | END 2023-03-01 23:59 | disposition home or self-care (01) | LOC: SPT 06:00 | PROVIDERS: PCP Family Medicine; Visit Provider Orthopaedic Surgery | DX: Z98.1 Arthrodesis status (principal) | CPT/HCPCS: 97110 ==

== ENCOUNTER → 2023-02-27 08:24 | Outpatient (BNVA) | payer OTHER, SELFPAY | PROVIDERS: PCP Family Medicine; Visit Provider Orthopaedic Surgery | DX: Z47.89 Encounter for other orthopedic aftercare (principal); Z98.1 Arthrodesis status | CPT/HCPCS: 72100; 99024 ==

== ENCOUNTER 2023-03-02 06:00 | Outpatient (RCR) | payer OTHER, MEDICARE, SELFPAY | END 2023-03-31 23:59 | disposition home or self-care (01) | LOC: SPT 06:00 | PROVIDERS: PCP Family Medicine; Visit Provider Orthopaedic Surgery | DX: Z98.1 Arthrodesis status (principal) | CPT/HCPCS: 97110 ==

== ENCOUNTER → 2023-03-06 15:13 | Outpatient (BNVA) | payer MEDICARE, SELFPAY | PROVIDERS: PCP Family Medicine; Visit Provider Dermatology | DX: L57.0 Actinic keratosis (principal); L98.8 Other specified disorders of the skin and subcutaneous tissue; L82.1 Other seborrheic keratosis; L81.4 Other melanin hyperpigmentation; D18.01 Hemangioma of skin and subcutaneous tissue; L21.8 Other seborrheic dermatitis | CPT/HCPCS: 17000; 17003; 99214 ==

== ENCOUNTER 2023-04-01 06:00 | Outpatient (RCR) | payer OTHER, MEDICARE, SELFPAY | END 2023-04-16 23:59 | disposition home or self-care (01) | LOC: SPT 06:00 | PROVIDERS: PCP Family Medicine; Visit Provider Orthopaedic Surgery | DX: Z98.1 Arthrodesis status (principal) | CPT/HCPCS: 97110 ==

== ENCOUNTER → 2023-04-02 08:24 | Outpatient (BNVA) | payer MEDICARE, SELFPAY | PROVIDERS: PCP Family Medicine; Referring Provider Family Medicine; Visit Provider Psychiatry & Neurology Neurology | DX: G57.93 Unspecified mononeuropathy of bilateral lower limbs (principal); G57.03 Lesion of sciatic nerve, bilateral lower limbs | CPT/HCPCS: 99203 ==

== ENCOUNTER → 2023-04-26 13:20 | Outpatient (BNVA) | payer OTHER, MEDICARE, SELFPAY | PROVIDERS: PCP Family Medicine; Visit Provider Psychiatry & Neurology Neurology | DX: G57.93 Unspecified mononeuropathy of bilateral lower limbs (principal); Z98.890 Other specified postprocedural states; G57.03 Lesion of sciatic nerve, bilateral lower limbs | CPT/HCPCS: 95910 ==

== ENCOUNTER → 2023-05-15 15:24 | Outpatient (BNVA) | payer MEDICARE, SELFPAY | PROVIDERS: PCP Family Medicine; Visit Provider Psychiatry & Neurology Neurology | DX: G57.93 Unspecified mononeuropathy of bilateral lower limbs (principal); G57.03 Lesion of sciatic nerve, bilateral lower limbs; Z98.890 Other specified postprocedural states; M85.80 Other specified disorders of bone density and structure, unspecified site | CPT/HCPCS: 36415; 82306; 82607; 82746; 83921; 84155; 84165; 84439; 84443; 84481; 85651; 86140; 86160; 86162; 86235; 86255; 86334; 86376; 86431; 86592; 86617; 86780; 99212 ==

== ENCOUNTER → 2023-05-22 08:22 | Outpatient (BNVA) | payer MEDICARE, SELFPAY | PROVIDERS: PCP Family Medicine; Visit Provider Orthopaedic Surgery | DX: Z47.89 Encounter for other orthopedic aftercare (principal); Z98.1 Arthrodesis status | CPT/HCPCS: 72100; 99213 ==

== ENCOUNTER 2023-06-07 08:04 | Outpatient (CLI) | payer MEDICARE, OTHER, SELFPAY ==
--- NOTE | 2023-06-07 08:20 | XR_ITS ---
WS: [id number] Right foot, 3 views, 06/07/2023 Clinical Data: bony lesion over 1st metatarsal Comparison: Right foot, 02/10/2015. Findings: No fractures or dislocations are seen. No bone destruction or erosion is noted. There is osteoarthrit is of the base of the right first metatarsal. No periarticular demineralization or calcification is s een. 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
== END 2023-06-07 08:05 | disposition home or self-care (01) ==
PROVIDERS: PCP Family Medicine; Visit Provider Family Medicine
DX: M19.071 Primary osteoarthritis, right ankle and foot (principal); M89.9 Disorder of bone, unspecified
CPT/HCPCS: 73630

== ENCOUNTER → 2023-06-08 14:46 | Outpatient (BNVA) | payer OTHER, MEDICARE, SELFPAY | PROVIDERS: PCP Family Medicine; Visit Provider Podiatrist Foot & Ankle Surgery | DX: M19.071 Primary osteoarthritis, right ankle and foot (principal); M20.21 Hallux rigidus, right foot | CPT/HCPCS: 99203 ==

== ENCOUNTER 2023-07-11 07:49 | Oncology outpatient (recurring) (ONCR) | payer OTHER, SELFPAY ==
[2023-07-11 08:58] LABS: Basophils # 0.1 10^3/uL (0.0-0.1); Eosinophils # 0.2 10^3/uL (0.0-0.8); Eosinophils % 2.9 %; Hematocrit 43.3 % (37-53); Lymphocytes # 1.2 10^3/uL (0.8-4.8); Lymphocytes % 23.3 %; Mean Corpuscular HGB Conc 31.2 g/dL (30-55); Mean Corpuscular Hemoglobin 28.7 pg (27-33); Mean Corpuscular Volume 91.9 fl (82-101); Mean Platelet Volume 10.8 fL (7.4-10.4); Monocytes # 0.5 10^3/uL (0.2-0.9); Monocytes % 9.6 %; Neutrophils # 3.22 10^3/uL (1.8-7.7); Nucleated Red Blood Cells % 0 %; Platelet Count 211 10^3/cmm (157-399); Red Blood Count 4.71 10^6/uL (3.85-5.65); Red Cell Distribution Width 14.6 % (12.1-15.1); White Blood Count 5.11 10^3/uL (3.29-11.43)
[2023-07-11 09:15] LABS: Alanine Aminotransferase 10 U/L (0-41); Albumin Level 4.1 g/dL (3.5-5.2); Alkaline Phosphatase 104 U/L (40-130); Aspartate Amino Transferase 18 U/L (0-40); Blood Urea Nitrogen 23 mg/dL (8-23); Calcium 9.2 mg/dL (8.5-10.5); Carbon Dioxide 27 mmol/L (22-29); Chloride 105 mmol/L (98-107); Ferritin 23 ng/mL (30-400); Globulin 3.4 g/dL (1.3-4.6); Glucose 97 mg/dL (65-115); Iron 52 ug/dL (59-158); Osmolality Calculated 296 mOsm/kg (285-295); Percent Saturation 18.7 % (20-50); Sodium 141 mmol/L (136-145); Total Bilirubin 0.4 mg/dL (0.15-1.2); Total Iron Binding Capacity 278 mcg/dl; Total Protein 7.5 g/dL (6.6-8.7); Unsaturated Iron Binding 226 ug/dL (112-347)
[2023-07-11 09:17] LABS: Anion Gap 13.4 (5-19); Potassium 4.4 mmol/L (3.5-5.1)
[2023-07-11 09:29] LABS: Vitamin B12 611 pg/mL (232-1245)
[2023-07-14 18:44] LABS: Soluble Transferrin Receptor 1.59 mg/L (0.76-1.76)
[2023-07-15 03:43] LABS: Methylmalonic Acid 295 nmol/L (87-318)
[2023-07-15 21:25] LABS: Copper Level 114 mcg/dL (70-175)
== END 2023-08-01 23:59 | disposition home or self-care (01) ==
PROVIDERS: Internal Medicine; PCP Family Medicine; Visit Provider Family Medicine
DX: D35.00 Benign neoplasm of unspecified adrenal gland (principal); E53.8 Deficiency of other specified B group vitamins; D75.89 Other specified diseases of blood and blood-forming organs; Z79.899 Other long term (current) drug therapy
CPT/HCPCS: 36415; 80053; 82525; 82607; 82728; 83540; 83550; 83921; 84238; 85025; 99203

== ENCOUNTER 2023-08-01 08:13 | Outpatient (CLI) | payer OTHER, MEDICARE, SELFPAY ==
--- NOTE | 2023-08-01 08:44 | XRR_ITS ---
PROCEDURE INFORMATION: Exam: XR Cervical Spine Exam date and time: 08/01/2023 8:56 AM Age: 77 years old Clinical indication: Neck pain; Additional info: Worsening chronic neck pain TECHNIQUE: Imaging protocol: Radiologic exam of the cervical spine. Views: 2 or 3 views. COMPARISON: CR XR chest 1V portable [id number] 11/28/2022 1:28 PM FINDINGS: Bones/joints: The lower half of C7 and the C7 disc space are obscured by the patient's shoulders on the lateral projections. No fracture or other acute abnormality. Alignment is normal. There is moderate C4 and mild C5 disc space narrowing. No associated reactive osteophytes are seen. Posterior elements are unremarkable as visualized. Soft tissues: Unremarkable. XR/XR cervical spine 3V* [id number] IMPRESSION: Nonacute findings.
== END 2023-08-01 08:14 | disposition home or self-care (01) ==
LOC: RAD 08:14
PROVIDERS: PCP Family Medicine; Visit Provider Family Medicine
DX: M54.2 Cervicalgia (principal); G89.29 Other chronic pain
CPT/HCPCS: 72040

== ENCOUNTER → 2023-08-27 11:30 | Outpatient (BNVA) | payer OTHER, SELFPAY | PROVIDERS: PCP Family Medicine; Visit Provider Psychiatry & Neurology Neurology | DX: G57.33 Lesion of lateral popliteal nerve, bilateral lower limbs (principal); M54.2 Cervicalgia; R51.9 Headache, unspecified; M62.838 Other muscle spasm; R76.8 Other specified abnormal immunological findings in serum; Z87.891 Personal history of nicotine dependence | CPT/HCPCS: 99212 ==

== ENCOUNTER → 2023-08-31 10:57 | Outpatient (BNVA) | payer MEDICARE, SELFPAY | PROVIDERS: PCP Family Medicine; Visit Provider Family Medicine | DX: M35.3 Polymyalgia rheumatica (principal) | CPT/HCPCS: 80053; 82252; 84443; 85025; 85651; 86140 ==

== ENCOUNTER → 2023-09-24 09:42 | Outpatient (BNVA) | payer OTHER, SELFPAY | PROVIDERS: PCP Family Medicine; Visit Provider Podiatrist Foot & Ankle Surgery | DX: M19.071 Primary osteoarthritis, right ankle and foot (principal); M19.072 Primary osteoarthritis, left ankle and foot; M20.21 Hallux rigidus, right foot | CPT/HCPCS: 99213 ==

== ENCOUNTER 2023-09-25 06:58 | Outpatient (CLI) | payer OTHER, SELFPAY ==
--- NOTE | 2023-09-25 07:15 | MR_ITS ---
WS: [email or web address] MRI LEFT KNEE, with and without contrast HISTORY: G57.01 - Lesion of sciatic nerve, right lower limb COMPARISON: None available. Multiplanar sequences LEFT knee with and without contrast. MultiHance 16 mL IV. Anterior cruciate ligament: Intact. Posterior cruciate ligament: Intact. Medial collateral ligament: Intact. Posterior lateral corner structures: Intact. Medial menisci: Intact. Normal signal, size and shape. Lateral meniscus: Intact. Normal signal, size and shape. Extensor mechanism: Distal quadriceps tendon and patellar tendons are intact. Fluid and soft tissue: Very small suprapatellar joint effusion. No Ghosh's cyst. Osseous and articular structures: Patellofemoral compartment: Normal. Medial compartment: Very minimal narrowing of the medial compartment. Mild thinning and fissuring of the cartilage but no full-thickness defect. No significant osteophyte. Lateral compartment: Mild narrowing of the lateral compartment with mild thinning and fissuring of th e cartilage along the weightbearing surface, greatest along the tibial plateau. Postcontrast images are negative for abnormal enhancement. No marrow signal abnormality and no enhanc ing masses. No abnormal enhancement associated with the nerves or tendons surrounding the knee. Incid ental note is made of a 12 mm popliteal vein dilatation. IMPRESSION: 1. No enhancing masses or bone lesions. 2. No meniscal tear. 3. No significant joint effusion. 4. Mild medial and lateral compartment chondromalacia. No full-thickness cartilage defects.
[2023-09-25] MEDS: gadobenate dimeglumine 20 mL vial IV (08:30)
== END 2023-09-25 06:59 | disposition home or self-care (01) ==
LOC: RAD 06:58
PROVIDERS: PCP Family Medicine; Visit Provider Psychiatry & Neurology Neurology
DX: G57.01 Lesion of sciatic nerve, right lower limb (principal); G57.93 Unspecified mononeuropathy of bilateral lower limbs; G57.02 Lesion of sciatic nerve, left lower limb; M94.261 Chondromalacia, right knee
CPT/HCPCS: 73723; A9577

== ENCOUNTER 2023-09-26 06:57 | Outpatient (CLI) | payer OTHER, SELFPAY ==
--- NOTE | 2023-09-26 07:15 | MR_ITS ---
WS: [email or web address] MRI RIGHT KNEE, with and without contrast HISTORY: G57.93 - Unspecified mononeuropathy of bilateral lower limbs COMPARISON: None available. Multiplane, multiphase imaging with and without contrast through the RIGHT knee. Anterior cruciate ligament: Mild mucoid degeneration but no tear. Posterior cruciate ligament: Intact. Medial collateral ligament: Intact. Posterior lateral corner structures: Intact. Medial menisci: Increased signal in the central posterior horn doesn't appear to extend to the inferi or articular surface consistent with a focal horizontal tear. Anterior horn is normal. Lateral meniscus: Intact. Normal signal, size and shape. Extensor mechanism: Distal quadriceps tendon and patellar tendons are intact. Fluid and soft tissue: Very tiny suprapatellar joint effusion. Small Ghosh's cyst. Osseous and articular structures: Patellofemoral compartment: Mild chondromalacia along the medial patellar facet. No marrow edema. Medial compartment: Mild narrowing of the medial compartment. Superficial fissuring of the cartilage. No marrow edema. Lateral compartment: Mild narrowing of the lateral compartment. Very slight chondromalacia greatest i nvolving the weightbearing surface of the tibial plateau. No marrow edema. No fracture. Postcontrast imaging is negative for mass. There is no enhancement along the nerve roots or attending s. IMPRESSION: 1. Horizontal tear posterior horn medial meniscus. Tear extends to the intra-articular surface. 2. Mild chondromalacia medial patellar facet. 3. Mild narrowing medial compartment from osteoarthritis. 4. Mild chondromalacia medial and lateral compartments. 5. No enhancing mass. No fractures or marrow signal abnormality.
[2023-09-26] MEDS: gadobenate dimeglumine 20 mL vial IV (08:29)
== END 2023-09-26 06:58 | disposition home or self-care (01) ==
LOC: RAD 06:58
PROVIDERS: PCP Family Medicine; Visit Provider Psychiatry & Neurology Neurology
DX: G57.93 Unspecified mononeuropathy of bilateral lower limbs (principal); S83.203A Other tear of unspecified meniscus, current injury, right knee, initial encounter; X58.XXXA Exposure to other specified factors, initial encounter; M17.11 Unilateral primary osteoarthritis, right knee
CPT/HCPCS: 73723; A9577

== ENCOUNTER 2023-09-27 06:59 | Outpatient (CLI) | payer OTHER, SELFPAY ==
--- NOTE | 2023-09-27 07:15 | MR_ITS ---
WS: [email or web address] MRI CERVICAL SPINE with and without contrast HISTORY: M54.2 - Cervicalgia COMPARISON: None available. Technique: Multiplanar, multisequence noncontrast imaging of the cervical spine. S-shaped cervical and upper thoracic scoliosis. Increase in the cervical lordosis. Signal within the cervical cord is normal. There is a very tiny amount of increased T2 signal in the upper thoracic cord centered at T1 which I believe is an artifact. Visualized posterior fossa is unre markable. Very minimal amount of edema noted in the muscles along the posterior cervical spine just t o the LEFT of midline at C3-4 level. No fluid collection. No enhancement. Craniocervical junction, C1 and C2 relationship, odontoid process and soft tissues are normal. C2-C3: Normal. C3-C4: Very mild osteophytic ridging. Mild bilateral facet arthritis. Very minimal foraminal encroach ment, LEFT greater than RIGHT. C4-C5: Very slight retrolisthesis of C4. Osteophytic ridging and annular disc bulging and facet arthr itis. Moderate central and mild bilateral foraminal stenosis, LEFT greater than RIGHT. C5-C6: Mild bilateral facet arthritis. No significant stenosis. C6-C7: Mild annular disc bulging with a small RIGHT paracentral disc protrusion. Bilateral facet join t arthritis. RIGHT paracentral disc slightly contacts the RIGHT lateral cervical cord but no displace ment. No significant foraminal stenosis. C7-T1: Normal. Paraspinal soft tissue are normal. No post contrast abnormality. No epidural abscess. No discitis. Po stcontrast imaging is limited by motion. IMPRESSION: 1. No discitis or osteomyelitis identified. 2. Mild facet arthritis and foraminal narrowing at C3-4. 3. C4-5: Moderate central and mild bilateral foraminal stenosis, LEFT greater than RIGHT due to disc osteophyte disease. 4. C6-7: Small RIGHT paracentral disc protrusion contacts but does not displace the cervical cord. 5. No areas of abnormal enhancement.
[2023-09-27] MEDS: gadobenate dimeglumine 20 mL vial IV (07:54)
== END 2023-09-27 07:00 | disposition home or self-care (01) ==
LOC: RAD 06:59
PROVIDERS: PCP Family Medicine; Visit Provider Psychiatry & Neurology Neurology
DX: M48.02 Spinal stenosis, cervical region (principal); M50.223 Other cervical disc displacement at C6-C7 level; M54.2 Cervicalgia
CPT/HCPCS: 72156; A9577

== ENCOUNTER → 2023-10-11 08:21 | Outpatient (BNVA) | payer MEDICARE, SELFPAY | PROVIDERS: PCP Family Medicine; Visit Provider Orthopaedic Surgery | DX: M62.838 Other muscle spasm (principal); M54.9 Dorsalgia, unspecified | CPT/HCPCS: 72072; 72100; 99214 ==

== ENCOUNTER → 2023-11-06 09:23 | Outpatient (BNVA) | payer OTHER, MEDICARE, SELFPAY | PROVIDERS: PCP Family Medicine; Visit Provider Internal Medicine Rheumatology | DX: M35.3 Polymyalgia rheumatica (principal); R76.8 Other specified abnormal immunological findings in serum | CPT/HCPCS: 99204 ==

== ENCOUNTER → 2023-11-20 08:09 | Outpatient (BNVA) | payer MEDICARE, SELFPAY | PROVIDERS: PCP Family Medicine; Visit Provider Orthopaedic Surgery | DX: Z98.1 Arthrodesis status (principal) | CPT/HCPCS: 72100; 99213 ==

== ENCOUNTER 2023-11-27 06:00 | Outpatient (RCR) | payer MEDICARE, SELFPAY | END 2023-11-30 23:59 | disposition home or self-care (01) | LOC: SPT 06:00 | PROVIDERS: Visit Provider Orthopaedic Surgery | DX: Z98.1 Arthrodesis status (principal) | CPT/HCPCS: 97110; 97161 ==

== ENCOUNTER 2023-12-01 06:00 | Outpatient (RCR) | payer MEDICARE, SELFPAY | END 2023-12-30 23:59 | disposition home or self-care (01) | LOC: SPT 06:00 | PROVIDERS: Visit Provider Orthopaedic Surgery | DX: Z98.890 Other specified postprocedural states (principal) | CPT/HCPCS: 97110 ==

== ENCOUNTER 2023-12-31 06:00 | Outpatient (RCR) | payer MEDICARE, SELFPAY | END 2024-01-30 23:59 | disposition home or self-care (01) | LOC: SPT 06:00 | PROVIDERS: PCP Family Medicine; Visit Provider Orthopaedic Surgery | DX: Z98.1 Arthrodesis status (principal) | CPT/HCPCS: 97110 ==

== ENCOUNTER 2024-01-09 11:37 | Oncology outpatient (recurring) (ONCR) | payer OTHER, SELFPAY ==
[2024-01-09 11:17] LABS: Basophils % 0.4 %; Eosinophils # 0.1 10^3/uL (0.0-0.8); Eosinophils % 0.8 %; Lymphocytes # 1.7 10^3/uL (0.8-4.8); Lymphocytes % 18.6 %; Mean Corpuscular HGB Conc 31.6 g/dL (30-55); Mean Corpuscular Hemoglobin 30.3 pg (27-33); Mean Corpuscular Volume 96.2 fl (82-101); Mean Platelet Volume 10.1 fL (7.4-10.4); Monocytes # 0.6 10^3/uL (0.2-0.9); Monocytes % 6.8 %; Neutrophils # 6.66 10^3/uL (1.8-7.7); Neutrophils % 72.9 %; Nucleated Red Blood Cells % 0 %; Platelet Count 219 10^3/cmm (157-399); Red Blood Count 4.68 10^6/uL (3.85-5.65); Red Cell Distribution Width 14.7 % (12.1-15.1); White Blood Count 9.14 10^3/uL (3.29-11.43)
[2024-01-09 12:03] LABS: Alanine Aminotransferase 28 U/L (0-41); Albumin Level 3.6 g/dL (3.5-5.2); Alkaline Phosphatase 62 U/L (40-130); Aspartate Amino Transferase 27 U/L (0-40); Blood Urea Nitrogen 27 mg/dL (8-23); Calcium 8.6 mg/dL (8.5-10.5); Carbon Dioxide 28 mmol/L (22-29); Chloride 106 mmol/L (98-107); Creatinine Clr Calc Pharmacy 47.8561; Globulin 2.5 g/dL (1.3-4.6); Glucose 94 mg/dL (65-115); Osmolality Calculated 295 mOsm/kg (285-295); Sodium 140 mmol/L (136-145); Total Bilirubin 0.3 mg/dL (0.15-1.2); Total Protein 6.1 g/dL (6.6-8.7); Vitamin B12 478 pg/mL (232-1245)
[2024-01-09 12:14] LABS: Anion Gap 10.5 (5-19); Potassium 4.5 mmol/L (3.5-5.1)
[2024-01-13 02:30] LABS: Methylmalonic Acid 287 nmol/L (69-390)
== END 2024-01-30 23:59 | disposition home or self-care (01) ==
LOC: ONCMED 11:38
PROVIDERS: Internal Medicine; PCP Family Medicine; Visit Provider Family Medicine
DX: E53.8 Deficiency of other specified B group vitamins; D75.89 Other specified diseases of blood and blood-forming organs; Z79.899 Other long term (current) drug therapy; Z87.891 Personal history of nicotine dependence; D35.00 Benign neoplasm of unspecified adrenal gland
CPT/HCPCS: 36415; 80053; 82607; 83921; 85025; 99213

== ENCOUNTER → 2024-01-15 11:19 | Outpatient (BNVA) | payer MEDICARE, SELFPAY | PROVIDERS: PCP Family Medicine; Visit Provider Internal Medicine Rheumatology | DX: M35.3 Polymyalgia rheumatica (principal); R76.8 Other specified abnormal immunological findings in serum; Z87.891 Personal history of nicotine dependence | CPT/HCPCS: 99215 ==

== ENCOUNTER 2024-01-31 06:00 | Outpatient (RCR) | payer MEDICARE, SELFPAY | END 2024-03-01 23:59 | disposition home or self-care (01) | LOC: SPT 06:00 | PROVIDERS: PCP Family Medicine; Visit Provider Orthopaedic Surgery | DX: Z98.1 Arthrodesis status (principal) | CPT/HCPCS: 97110 ==

== ENCOUNTER 2024-02-07 12:28 | Oncology outpatient (recurring) (ONCR) | payer OTHER, SELFPAY ==
[2024-02-07 13:20] VITALS: BP 158/84; PULSE 56; RESP 16; TEMP 36.6; O2SAT 97
[2024-02-07 13:24] LABS: Basophils % 0.5 %; Eosinophils # 0.1 10^3/uL (0.0-0.8); Eosinophils % 0.8 %; Hematocrit 45.2 % (37-53); Lymphocytes % 22.6 %; Mean Corpuscular HGB Conc 31.9 g/dL (30-55); Mean Corpuscular Hemoglobin 30.6 pg (27-33); Mean Platelet Volume 9.7 fL (7.4-10.4); Monocytes # 0.6 10^3/uL (0.2-0.9); Monocytes % 7.2 %; Neutrophils # 5.89 10^3/uL (1.8-7.7); Neutrophils % 68.3 %; Nucleated Red Blood Cells % 0 %; Platelet Count 229 10^3/cmm (157-399); Red Blood Count 4.71 10^6/uL (3.85-5.65); Red Cell Distribution Width 15.5 % (12.1-15.1); White Blood Count 8.62 10^3/uL (3.29-11.43)
[2024-02-07] MEDS: acetaminophen 325 mg Tablet 650 MG PO (13:29)
[2024-02-07] MEDS: sodium chloride 0.9% 250 ML 75 ML IV (13:29)
[2024-02-07] MEDS: methylPREDNISolone sod succ 40 mg/mL INJ IVP (13:30)
[2024-02-07] MEDS: diphenhydrAMINE 50 mg/mL SDV 1mL IVP (13:32)
[2024-02-07 13:41] LABS: Alanine Aminotransferase 16 U/L (0-41); Albumin Level 3.7 g/dL (3.5-5.2); Alkaline Phosphatase 59 U/L (40-130); Aspartate Amino Transferase 17 U/L (0-40); Creatinine Clr Calc Pharmacy 51.7137; Globulin 2.7 g/dL (1.3-4.6); Total Bilirubin 0.5 mg/dL (0.15-1.2); Total Protein 6.4 g/dL (6.6-8.7)
[2024-02-07 13:46] LABS: Erythrocyte Sedimentation Rate 28 mm/hr (0-10)
[2024-02-07] MEDS: tocilizumab 400 MG, tocilizumab 200 MG, tocilizumab 20 MG in sodium chloride 0.9% (100 ... 131 MG IV (14:20)
[2024-02-07 15:20] VITALS: BP 144/67; PULSE 52; RESP 16; TEMP 36.6; O2SAT 95
== END 2024-03-01 23:59 | disposition home or self-care (01) ==
PROVIDERS: Internal Medicine Rheumatology; PCP Family Medicine; Visit Provider Family Medicine
DX: Z79.899 Other long term (current) drug therapy (principal); M31.6 Other giant cell arteritis
CPT/HCPCS: 80076; 82565; 85025; 85651; 86140; 96375; 96413; J1200; J2919; J3262; J7050

== ENCOUNTER → 2024-02-19 13:14 | Outpatient (BNVA) | payer OTHER, MEDICARE, SELFPAY | PROVIDERS: PCP Family Medicine; Visit Provider Nurse Practitioner Family | DX: D48.5 Neoplasm of uncertain behavior of skin (principal); S50.902A Unspecified superficial injury of left elbow, initial encounter; L21.8 Other seborrheic dermatitis; L98.8 Other specified disorders of the skin and subcutaneous tissue; L82.1 Other seborrheic keratosis; L81.4 Other melanin hyperpigmentation; X58.XXXA Exposure to other specified factors, initial encounter | CPT/HCPCS: 11102; 99214 ==

== ENCOUNTER 2024-02-21 10:55 | Outpatient (CLI) | payer OTHER, MEDICARE, SELFPAY ==
[2024-02-21 11:34] LABS: Basophils % 0.3 %; Eosinophils # 0.1 10^3/uL (0.0-0.8); Hematocrit 47.5 % (37-53); Lymphocytes # 1.9 10^3/uL (0.8-4.8); Lymphocytes % 19.7 %; Mean Corpuscular HGB Conc 31.8 g/dL (30-55); Mean Corpuscular Hemoglobin 30.9 pg (27-33); Mean Corpuscular Volume 97.3 fl (82-101); Mean Platelet Volume 9.8 fL (7.4-10.4); Monocytes # 0.7 10^3/uL (0.2-0.9); Monocytes % 7.4 %; Neutrophils # 6.68 10^3/uL (1.8-7.7); Neutrophils % 71.1 %; Nucleated Red Blood Cells % 0 %; Platelet Count 198 10^3/cmm (157-399); Red Blood Count 4.88 10^6/uL (3.85-5.65); Red Cell Distribution Width 16.3 % (12.1-15.1)
[2024-02-21 11:37] LABS: Erythrocyte Sedimentation Rate 2 mm/hr (0-10)
[2024-02-21 11:52] LABS: Alanine Aminotransferase 22 U/L (0-41); Alkaline Phosphatase 57 U/L (40-130); Aspartate Amino Transferase 18 U/L (0-40); Globulin 2.2 g/dL (1.3-4.6); Total Bilirubin 0.6 mg/dL (0.15-1.2); Total Protein 6.2 g/dL (6.6-8.7)
== END 2024-02-21 10:56 | disposition home or self-care (01) ==
LOC: LAB 10:57
PROVIDERS: PCP Family Medicine; Visit Provider Internal Medicine Rheumatology
DX: M31.6 Other giant cell arteritis (principal)
CPT/HCPCS: 36415; 80076; 82565; 85025; 85651; 86140

== ENCOUNTER → 2024-03-04 14:37 | Outpatient (BNVA) | payer MEDICARE, SELFPAY | PROVIDERS: PCP Family Medicine; Visit Provider Orthopaedic Surgery | DX: M54.50 Low back pain, unspecified (principal); M54.9 Dorsalgia, unspecified; G89.29 Other chronic pain | CPT/HCPCS: 72100; 99214 ==

== ENCOUNTER 2024-03-06 08:16 | Oncology outpatient (recurring) (ONCR) | payer OTHER, SELFPAY ==
[2024-03-06] MEDS: sodium chloride 0.9% 250 ML 50 ML IV (09:16)
[2024-03-06] MEDS: methylPREDNISolone sod succ 40 mg/mL INJ IVP (09:17)
[2024-03-06] MEDS: acetaminophen 325 mg Tablet 650 MG PO (09:17)
[2024-03-06] MEDS: diphenhydrAMINE 50 mg/mL SDV 1mL IVP (09:20)
[2024-03-06] MEDS: [UNRECOGNIZED DRUG - OTHER] IV (09:43)
[2024-03-06] MEDS: TOCILIZUMAB IV (09:43)
[2024-03-06 10:47] VITALS: BP 172/72; PULSE 51; TEMP 36.1; O2SAT 97
--- NOTE | 2024-03-17 08:00 | CT_ITS ---
WS: [email or web address] CT LUMBAR SPINE, noncontrast. HISTORY: back pain TECHNIQUE: Contiguous 2.0 mm axial imaging are performed. Sagittal and coronal reformats are submitte d and reviewed. All CT scans at [facility] use at least one of these dose optimization techni ques: automated exposure control; mA and/or kV adjustment per patient size (includes targeted exams w here dose is matched to clinical indication); or iterative reconstruction. IV contrast: None DLP: 581.20 mGy.cm COMPARISON: Radiograph 03/04/2024 Extensive artifact obscuring detail throughout the lumbar spine. Fusion hardware extends from the low er thoracic spine to the sacrum. Pedicle screws and vertical rods appear to be intact. No hardware fr actures are identified. Normal appearance of the sacral screws. L5 anterolisthesis by 12.6 mm. L1-2: Osteophytic ridging with slight retrolisthesis of L1. Mild foraminal stenosis. L2-3: Osteophytic ridging. Calcification in the ligamentum flavum. Bilateral mild foraminal stenosis. L3-4: Osteophytic ridging posterior laminectomy defect. Mild foraminal narrowing. L4-5: Osteophytic ridging with large posterior laminectomy defect. Moderate bilateral foraminal steno sis. L5-S1: Large posterior laminectomy defect. Bilateral severe foraminal stenosis. Severe centrilobular emphysema noted at the lung bases. RIGHT adrenal adenoma 2.6 x 1.7 cm. Mild athe rosclerosis aorta. Large RIGHT renal cyst 4.0 cm is incompletely visualized. Mild sigmoid diverticulo sis. CT/CT lumbar spine wo con* [id number] IMPRESSION: 1. Extensive posterior fusion hardware extends from the lower thoracic spine t hrough the lumbar spine into the sacrum. No hardware fractures are identified. 2. No prior studies for comparison. 3. Grade 2 L5 spondylolisthesis. 4. At least moderate bilateral foraminal stenosis at L4-5 and severe at L5-S1. 5. Limited evaluation of the lumbar spine due to the extensive artifact from t he hardware. 6. Large posterior laminectomy defects and postsurgical changes are noted begi nning at the L3-4 through L5-S1 levels. 7. RIGHT renal cyst and RIGHT adrenal adenoma.
== END 2024-03-31 23:59 | disposition home or self-care (01) ==
LOC: RAD 03-17 07:46 → ONCMED 03-17 07:47
PROVIDERS: PCP Family Medicine; Visit Provider Orthopaedic Surgery
DX: M54.9 Dorsalgia, unspecified (principal); N28.1 Cyst of kidney, acquired; D35.01 Benign neoplasm of right adrenal gland; M48.07 Spinal stenosis, lumbosacral region; M43.16 Spondylolisthesis, lumbar region
CPT/HCPCS: 72131; 96375; 96413; J1200; J2919; J3262; J7050

== ENCOUNTER → 2024-03-10 12:37 | Outpatient (BNVA) | payer OTHER, SELFPAY | PROVIDERS: PCP Family Medicine; Visit Provider Internal Medicine Rheumatology | DX: M35.3 Polymyalgia rheumatica (principal); R76.8 Other specified abnormal immunological findings in serum | CPT/HCPCS: 99214 ==

== ENCOUNTER → 2024-03-11 08:34 | Outpatient (BNVA) | payer OTHER, SELFPAY | PROVIDERS: PCP Family Medicine; Visit Provider Dermatology | DX: C44.319 Basal cell carcinoma of skin of other parts of face (principal) | CPT/HCPCS: 14041; 17311 ==

== ENCOUNTER → 2024-04-08 07:56 | Outpatient (BNVA) | payer OTHER, SELFPAY | PROVIDERS: PCP Family Medicine; Visit Provider Podiatrist Foot & Ankle Surgery | DX: M19.071 Primary osteoarthritis, right ankle and foot | CPT/HCPCS: 99213 ==

== ENCOUNTER 2024-04-24 11:34 | Outpatient (CLI) | payer OTHER, SELFPAY ==
[2024-04-24 12:09] LABS: Basophils % 0.3 %; Eosinophils % 0.4 %; Hematocrit 47.2 % (37-53); Lymphocytes # 2.3 10^3/uL (0.8-4.8); Lymphocytes % 20.4 %; Mean Corpuscular HGB Conc 31.6 g/dL (30-55); Mean Corpuscular Hemoglobin 32.1 pg (27-33); Mean Corpuscular Volume 101.7 fl (82-101); Mean Platelet Volume 11.2 fL (7.4-10.4); Monocytes % 9.1 %; Neutrophils # 7.71 10^3/uL (1.8-7.7); Neutrophils % 69.3 %; Nucleated Red Blood Cells % 0 %; Platelet Count 165 10^3/cmm (157-399); Red Blood Count 4.64 10^6/uL (3.85-5.65); Red Cell Distribution Width 14.8 % (12.1-15.1)
[2024-04-24 12:10] LABS: Bilirubin Urine Negative (Negative); Blood Urine Negative (Negative); Glucose Urine UA Negative (Normal); Ketones Urine Negative (Negative); Leukocyte Esterase Urine Negative (Negative); Nitrate Urine Negative (Negative); Protein Urine Negative (Negative); Specific Gravity, Urine 1.011 (1.005-1.030); Urine Appearance Clear (CLEAR); Urine Color Yellow (Yellow); Urobilinogen Urine 0.2 mg/dL (Negative); pH Urine 5.5 (5-7)
[2024-04-24 12:15] LABS: Bacteria Urine None Seen /hpf; Hyaline Casts Urine 0-4 /lpf; RBC Urine 0-2 /hpf (0-2); Squamous Epithelial Cell Urine 0-5 /hpf (0-5); WBC Urine 0-5 /hpf (0-5)
[2024-04-24 12:25] LABS: Erythrocyte Sedimentation Rate 3 mm/hr (0-10)
[2024-04-24 12:42] LABS: Urine Creatinine 67 mg/dL (39-259); Urine Protein Random 5 mg/dL
[2024-04-24 12:51] LABS: Alanine Aminotransferase 29 U/L (0-41); Albumin Level 4.1 g/dL (3.5-5.2); Alkaline Phosphatase 56 U/L (40-130); Aspartate Amino Transferase 25 U/L (0-40); NT Pro B Type Natriuretic Pept 141 pg/mL (0-450); Total Bilirubin 0.5 mg/dL (0.15-1.2); Total Protein 6.1 g/dL (6.6-8.7)
== END 2024-04-24 11:35 | disposition home or self-care (01) ==
PROVIDERS: PCP Family Medicine; Visit Provider Internal Medicine Rheumatology
DX: M31.6 Other giant cell arteritis (principal)
CPT/HCPCS: 36415; 80076; 81001; 82565; 82570; 83880; 84156; 85025; 85651; 86140

== ENCOUNTER 2024-05-01 08:00 | Oncology outpatient (recurring) (ONCR) | payer OTHER, SELFPAY ==
[2024-04-03 08:54] VITALS: BP 154/76; PULSE 56; RESP 16; TEMP 36.9; O2SAT 97
[2024-04-03] MEDS: acetaminophen 325 mg Tablet 650 MG PO (09:49)
[2024-04-03] MEDS: sodium chloride 0.9% 250 ML 75 ML IV (09:50)
[2024-04-03] MEDS: methylPREDNISolone sod succ 40 mg/mL INJ IVP (09:55)
[2024-04-03] MEDS: diphenhydrAMINE 50 mg/mL SDV 1mL IVP (09:59)
[2024-04-03] MEDS: tocilizumab 400 MG, tocilizumab 200 MG, tocilizumab 60 MG in sodium chloride 0.9% (100 ... 133 MG IV (10:33)
[2024-04-03 12:05] VITALS: BP 136/8; PULSE 85; RESP 16; TEMP 37.1; O2SAT 98
[2024-05-01] MEDS: acetaminophen 325 mg Tablet 650 MG PO (08:40)
[2024-05-01] MEDS: methylPREDNISolone sod succ 40 mg/mL INJ IVP (08:41)
[2024-05-01] MEDS: diphenhydrAMINE 50 mg/mL SDV 1mL IVP (08:49)
[2024-05-01] MEDS: TOCILIZUMAB IV (09:25)
[2024-05-01] MEDS: SODIUM CHLORIDE 0.9% IV (09:25)
[2024-05-01 10:44] VITALS: BP 148/83; PULSE 65; RESP 17; TEMP 35.8; O2SAT 98
== END 2024-05-01 23:59 | disposition home or self-care (01) ==
PROVIDERS: PCP Family Medicine; Visit Provider Orthopaedic Surgery
DX: M31.6 Other giant cell arteritis; Z79.899 Other long term (current) drug therapy; Z53.9 Procedure and treatment not carried out, unspecified reason
CPT/HCPCS: 96365; 96375; 96413; J1200; J2919; J3262; J7050

== ENCOUNTER 2024-06-10 08:30 | Oncology outpatient (recurring) (ONCR) | payer OTHER, SELFPAY ==
[2024-06-05 08:18] VITALS: BP 150/85; PULSE 88; RESP 16; TEMP 36.3; O2SAT 93
[2024-06-05] MEDS: sodium chloride 0.9% 250 ML 75 ML IV (08:37)
[2024-06-05] MEDS: methylPREDNISolone sod succ 40 mg/mL INJ IVP (08:43)
[2024-06-05] MEDS: diphenhydrAMINE 50 mg/mL SDV 1mL IVP (08:47)
[2024-06-05] MEDS: tocilizumab 400 MG, tocilizumab 200 MG, tocilizumab 70 MG in sodium chloride 0.9% (100 ... 133.5 MG IV (09:27)
[2024-06-05 10:30] VITALS: BP 120/78; PULSE 84; RESP 17; TEMP 36.6; O2SAT 97
== END 2024-07-01 23:59 | disposition home or self-care (01) ==
LOC: RAD 06-11 00:01 → ONCMED 06-11 09:38
PROVIDERS: PCP Family Medicine; Visit Provider Orthopaedic Surgery
DX: Z53.9 Procedure and treatment not carried out, unspecified reason
CPT/HCPCS: 96375; 96413; J1200; J2919; J3262; J7050

== ENCOUNTER 2024-07-07 14:10 | Emergency (ER) | payer OTHER, MEDICARE, SELFPAY ==
[2024-07-07 14:23] VITALS: BP 143/85; PULSE 92; RESP 24; TEMP 36.4; O2SAT 96; BMI 28.1
--- NOTE | 2024-07-07 15:54 | XRR_ITS ---
PROCEDURE INFORMATION: Exam: XR Chest Exam date and time: 07/07/2024 4:10 PM Age: 78 years old Clinical indication: Cough and dyspnea; Additional info: Dyspnea/cough TECHNIQUE: Imaging protocol: Radiologic exam of the chest. Views: 1 view. COMPARISON: CR XR chest 1V portable [id number] 11/28/2022 1:28 PM FINDINGS: Lungs: There is chronic interstitial fibrosis involving both lung bases. No lung mass or infiltrate noted. Pleural spaces: Unremarkable. No pleural effusion. No pneumothorax. Heart/Mediastinum: Unremarkable. No cardiomegaly. Bones/joints: Unremarkable. XR/XR chest 1V portable [id number] IMPRESSION: 1. No acute findings. 2. Chronic lung changes noted
--- NOTE | 2024-07-07 15:54 | ECG_ITS ---
[facility] Test Date: 2024-07-07 Pat Name: Neema Upton Department: Room: Gender: Male Pet Feeder: : 1945 Requested By: Paco Hutchins Order Number: [id number] Yarely MD: Annabel Aldridge M.D. Measurements Intervals [place] Rate: 77 P: 30 WI: 152 QRS: -7 QRSD: 83 T: 43 QT: 372 QTc: 422 Interpretive Statements SINUS RHYTHM MODERATE ST DEPRESSION [0.05+ mV ST DEPRESSION] Compared to ECG 11/28/2022 14:55:51 Sinus tachycardia no longer present ST (T wave) deviation still present Electronically Signed On 07-07-2024 17:07:55 SPACE TECHNOLOGIST by Annabel Aldridge M.D. [id number]
--- NOTE | 2024-07-07 16:08 | ED_ITS ---
HPI - Nausea/Vomiting/Diarrhea 2 General: Chief complaint: Nausea/Vomiting/Diarrhea Stated complaint: loose stools, sent from [place] Time Seen by Provider: 07/07/24 15:40 History of Present Illness: 78-year-old male presents to the emergen cy room with complaints of loose stools. For the last 3 days he has had loose stools he has not had any hematochezia melena hematemesis or coffee-ground emesis no recent antibiotics. He presented to the emergency room because he had called to his doctor's office told him he had diarrhea and they sent him. He did recently see given Actemra and has had 5 prior with no problems. Associated symtoms: Denies chest pain or dysuria Related Data Home Medications Medication Instructions Recorded Confirmed Fiber Well 1 tab PO QDAY PRN constipation 06/27/22 07/07/24 cholecalciferol (vitamin D3) 50 50 mcg PO DAILY 10/31/22 07/07/24 mcg (2,000 unit) capsule ascorbic acid (vitamin C) 500 mg 500 mg PO DAILY 01/04/23 07/07/24 tablet diphenhydramine HCl 25 mg tablet 25 mg PO DAILY PRN allergies 07/07/24 07/07/24 (Benadryl Allergy) ferrous sulfate 325 mg (65 mg 325 mg PO DAILY 07/07/24 07/07/24 iron) tablet (Iron (ferrous sulfate)) multivitamin 1 tab PO DAILY 07/07/24 07/07/24 tocilizumab 200 mg/10 mL (20 20 mg IV Q30D 07/07/24 07/07/24 mg/mL) intravenous solution (Actemra) Previous Rx's Medication Instructions Recorded orthopedic shoes with low-profile #1 ea 09/24/23 Copolymer custom orthotics tramadol 50 mg tablet 50 mg PO TID PRN pain 1 month #90 10/03/23 tabs folic acid 1 mg tablet 1 mg PO DAILY #30 tabs 01/15/24 pantoprazole 40 mg tablet,delayed See Rx Instructions PO DAILY #90 03/10/24 release tabs prednisone 5 mg tablet See Rx Instructions PO DAILY #90 03/10/24 tabs pregabalin 100 mg capsule (Lyrica) 100 mg PO BID #60 caps 03/10/24 furosemide 20 mg tablet (Lasix) 20 mg PO DAILY PRN edema #30 tabs 04/28/24 potassium chloride 10 mEq 10 meq PO DAILY PRN edema #30 tabs 04/28/24 tablet,extended release Allergies Allergy/AdvReac Type Severity Reaction Status Date / Time finasteride [From Proscar] Allergy Severe ADR-Dizzine Verified 07/07/24 14:29 ss tamsulosin [From Flomax] Allergy Severe ADR-Dizzine Verified 07/07/24 14:29 ss Review of Systems 2 Const: Denies: fever(s) or chills Card: Denies: chest pain Resp: Denies: dyspnea GI: Reports: diarrhea; Denies: abdominal pain, hematemesis, hematochezia or melena : Denies: dysuria, urinary frequency or urinary urgency Musc: Denies: neck pain or back pain Skin/Breast: Denies: rash PFSH ED 2 PFSH: Medical History Chronic steroid use SS-A antibody positive Macrocytosis without anemia Obstructive sleep apnea syndrome History of transfusion of packed RBC postoperative acute blood loss anemia Osteopenia Renal cyst, right 5.0 cm exophytic cyst of the lower pole of the right kidney Diverticulosis Adrenal adenoma 2.7 cm right adrenal adenoma Pancreatic atrophy Hiatal hernia Fatty liver History of urinary retention postoperative [place]'s syndrome postoperative ileus Hypertension Surgical History History of lumbosacral spine surgery History of Zenker's diverticulum removal History of Ayaan fundoplication History of right inguinal hernia repair Family History Brother Cancer colon Parkinson disease Denies family history of Diabetes CAD (coronary artery disease) Dementia Chronic kidney disease (CKD) Stroke Social History Smoking and tobacco/nicotine status: never used tobacco/nicotine Quit status (tobacco/nicotine): has quit using Year quit tobacco: 1968 Alcohol intake: never Substance/Drug Use: never Household members: spouse Marital status: service: Yes branch: [employer] Assignments: Outside [employer] ([employer]) Current occupational status: retired Physical Exam 2 Const: COMMON NORMALS: no acute distress GENERAL APPEARANCE: cooperative and comfortable ORIENTATION/CONSCIOUSNESS: Yes awake, Yes oriented to person, Yes oriented to place and Yes oriented to time HENMT: COMMON NORMALS: normocephalic, atraumatic and hearing grossly normal bilaterally HEAD & SCALP: normocephalic and atraumatic Resp: COMMON NORMALS: normal respiratory effort, No retractions, No use of accessory muscles and clear to auscultation bilaterally AUSCULTATION: clear to auscultation bilaterally Cardio: COMMON NORMALS: regular rate, regular rhythm and No murmurs present (Cardio) RATE: regular rate RHYTHM: regular rhythm GI: COMMON NORMALS: Soft to palpation and No hepatosplenomegaly present A USCULTATION: Yes normoactive bowel sounds PALPATION: Yes Soft to palpation, No Tenderness to palpation present (GI), No Guarding due to palpation present (GI) and Yes No hepatosplenomegaly present Extremity: COMMON NORMALS: normal to inspection, capillary refill normal, no clubbing, cyanosis or edema, no calf tenderness and no pedal edema Neuro: SENSORIUM/ORIENTATION: Yes oriented to person, Yes oriented to place and Yes oriented to time Skin: COMMON NORMALS: no rashes or lesions noted GENERAL SKIN EXAM: no rashes or lesions noted Course 2 Vital Signs: Vital signs: Vital Signs Temperature 97.6 F 07/07/24 14:23 Pulse Rate 83 07/07/24 18:17 Respiratory Rate 24 H 07/07/24 14:23 Blood Pressure 135/84 07/07/24 18:17 Pulse Oximetry 94 07/07/24 18:17 Oxygen Delivery Me thod Room Air 07/07/24 14:23 MDM - Nausea/Vomiting/Diarrhea Medical Decision Making Labs reviewed no significant finding. Patient has no significant findings on exams has had diarrhea for the last couple of days. Did check Actemra as listed actually is having a higher rate of constipation it is a lower frequency side effect of diarrhea. Suspect this is more likely from a gastroenteritis. Has had's Actemra several times before without having significant problems. Clear liquid diet advance as tolerated if he has any blood in the stool or persistent worsening of his symptoms return to the emergency room. Medical Records I reviewed the patient's medical records. Lab Data I reviewed the patient's lab results. 07/07/24 16:05 07/07/24 16:05 Radiology Impressions Chest X-Ray 07/07/24 15:54 IMPRESSION: 1. No acute findings. 2. Chronic lung changes noted Laboratory Results WBC 7.58 10^3/uL (3.29-11.43) 07/07/24 16:05 RBC 4.70 10^6/uL (3.85-5.65) 07/07/24 16:05 Hgb 15.70 g/dL (11.27-16.99) 07/07/24 16:05 Hct 48.2 % (37-53) 07/07/24 16:05 MCV 102.6 fl (82-101) H 07/07/24 16:05 MCH 33.4 pg (27-33) H 07/07/24 16:05 MCHC 32.6 g/dL (30-55) 07/07/24 16:05 RDW 12.6 % (12.1-15.1) 07/07/24 16:05 Plt Count 170 10^3/cmm (157-399) 07/07/24 16:05 MPV 10.7 fL (7.4-10.4) H 07/07/24 16:05 Neut % (Auto) 70.8 % 07/07/24 16:05 Lymph % (Auto) 17.0 % 07/07/24 16:05 [place] % (Auto) 8.0 % 07/07/24 16:05 Eos % (Auto) 3.2 % 07/07/24 16:05 Baso % (Auto) 0.5 % 07/07/24 16:05 Neut # (Auto) 5.36 10^3/uL (1.8-7.7) 07/07/24 16:05 Lymph # (Auto) 1.3 10^3/uL (0.8-4.8) 07/07/24 16:05 [place] # (Auto) 0.6 10^3/uL (0.2-0.9) 07/07/24 16:05 Eos # (Auto) 0.2 10^3/uL (0.0-0.8) 07/07/24 16:05 Baso # (Auto) 0.0 10^3/uL (0.0-0.1) 07/07/24 16:05 Nucleated RBC % (auto) 0 % 07/07/24 16:05 Nucleated RBCs # 0.0 /100WBC 07/07/24 16:05 Sodium 140 mmol/L (136-145) 07/07/24 16:05 Potassium 4.1 mmol/L (3.5-5.1) 07/07/24 16:05 Chloride 106 mmol/L (98-107) 07/07/24 16:05 Carbon Dioxide 27 mmol/L (22-29) 07/07/24 16:05 Anion Gap 11.1 (5-19) 07/07/24 16:05 BUN 24 mg/dL (8-23) H 07/07/24 16:05 Creatinine 1.1 mg/dL (0.7-1.2) 07/07/24 16:05 GFR Calculation Not Reportable 07/07/24 16:05 Glucose 105 mg/dL (65-115) 07/07/24 16:05 Calculated Osmolality 294 mOsm/kg (285-295) 07/07/24 16:05 Calcium 8.7 mg/dL (8.5-10.5) 07/07/24 16:05 Total Bilirubin 0.7 mg/dL (0.15-1.2) 07/07/24 16:05 AST 36 U/L (0-40) 07/07/24 16:05 ALT 73 U/L (0-41) H 07/07/24 16:05 Alkaline Phosphatase 53 U/L (40-130) 07/07/24 16:05 Total Protein 6.0 g/dL (6.6-8.7) L 07/07/24 16:05 Albumin 3.9 g/dL (3.5-5.2) 07/07/24 16:05 Globulin 2.1 g/dL (1.3-4.6) 07/07/24 16:05 Urine Color Dark yellow (Yellow) A 07/07/24 16:05 Urine Appearance Clear (CLEAR) 07/07/24 16:05 Urine pH 5.5 (5-7) 07/07/24 16:05 Ur Specific [place] 1.026 (1.005-1.030) 07/07/24 16:05 Urine Protein Trace (Negative) A 07/07/24 16:05 Urine Glucose (UA) Negative (Normal) 07/07/24 16:05 Urine Ketones Trace (Negative) 07/07/24 16:05 Urine Blood Negative (Negative) 07/07/24 16:05 Urine Nitrate Negative (Negative) 07/07/24 16:05 Urine Bilirubin Negative (Negative) 07/07/24 16:05 Urine Urobilinogen 1.0 mg/dL (Negative) 07/07/24 16:05 Ur Leukocyte Esterase Negative (Negative) 07/07/24 16:05 Urine RBC 0-2 /hpf (0-2) 07/07/24 16:05 Urine WBC 0-5 /hpf (0-5) 07/07/24 16:05 Ur Squamous Epith Cells 0-5 /hpf (0-5) 07/07/24 16:05 Amorphous Sediment Not Reportable 07/07/24 16:05 Urine Bacteria None seen /hpf (NONE) 07/07/24 16:05 Hyaline Casts 2.46 /lpf 07/07/24 16:05 All radiology interpretation(s) finalized by discharge Discharge Plan Discharge Patient Disposition: Home Clinical Impression: Diarrhea Condition: Stable Prescriptions: No Action Fiber Well 1 tab PO QDAY PRN (Reason: constipation ) cholecalciferol (vitamin D3) 50 mcg (2,000 unit) capsule 50 mcg PO DAILY pantoprazole 40 mg tablet,delayed release (DR/EC) See Rx Instructions PO DAILY Qty: 90 1RF Rx Instructions: take in AM 30 minutes before meal PO daily; prednisone 5 mg tablet See Rx Instructions PO DAILY Qty: 90 1RF Rx Instructions: take 3tabs daily x2wks,then take 2tabs daily x2wks and then stay on 1.5tabs daily orally daily; pregabalin [Lyrica] 100 mg capsule 100 mg PO BID Qty: 60 3RF potassium chloride 10 mEq tablet extended release 10 meq PO DAILY PRN (Reason: edema) Qty: 30 0RF Rx Instructions: take with lasix furosemide [Lasix] 20 mg tablet 20 mg PO DAILY PRN (Reason: edema) Qty: 30 0RF ascorbic acid (vitamin C) 500 mg tablet 500 mg PO DAILY (DME) orthopedic shoes with low-profile Copolymer custom orthotics See Rx Instructions .Route .MEDSUPPLY Qty: 1 0RF Rx Instructions: As directed made by the shoe magali folic acid 1 mg tablet 1 mg PO DAILY Qty: 30 5RF tramadol 50 mg tablet 50 mg PO TID PRN (Reason: pain) 30 Days Qty: 90 0RF Actemra 200 mg/10 mL (20 mg/mL) Solution 20 mg IV Q30D multivitamin [Multi-Day] Tablet 1 tab PO DAILY ferrous sulfate [Iron (ferrous sulfate)] 325 mg (65 mg iron) Tablet 325 mg PO DAILY diphenhydramine HCl [Benadryl Allergy] 25 mg Tablet 25 mg PO DAILY PRN (Reason: allergies ) Discharge Orders: Discharge ED (Routine); Ordered 07/07/24 Ordered By: Paco Johnson Referrals: Carla Allen MD [Primary Care Provider] - Patient Instructions: Opioid Safety, Pain Management Activity Restrictions/Additional Instructions: Thank you for choosing [facility] for your healthcare needs today. It is very important that you follow up as instructed or that you return to the Emergency Department should you have concerns or if your condition changes or worsens in any way. You were seen with a complaint of diarrhea. Your laboratory test did not show significant abnormality noted your exam. Suspect this is a gastroenteritis. Liquid diet and advance as tolerated return if your symptoms worsen or change or you develop any blood in the stool Coding Level of Care Code ED Boring And Filling Machine Operator for Keith Alcala
[2024-07-07 16:12] LABS: Basophils % 0.5 %; Eosinophils # 0.2 10^3/uL (0.0-0.8); Eosinophils % 3.2 %; Hematocrit 48.2 % (37-53); Lymphocytes # 1.3 10^3/uL (0.8-4.8); Mean Corpuscular HGB Conc 32.6 g/dL (30-55); Mean Corpuscular Hemoglobin 33.4 pg (27-33); Mean Corpuscular Volume 102.6 fl (82-101); Mean Platelet Volume 10.7 fL (7.4-10.4); Monocytes # 0.6 10^3/uL (0.2-0.9); Neutrophils # 5.36 10^3/uL (1.8-7.7); Neutrophils % 70.8 %; Nucleated Red Blood Cells % 0 %; Platelet Count 170 10^3/cmm (157-399); Red Cell Distribution Width 12.6 % (12.1-15.1); White Blood Count 7.58 10^3/uL (3.29-11.43)
[2024-07-07 16:30] LABS: Alanine Aminotransferase 73 U/L (0-41); Albumin Level 3.9 g/dL (3.5-5.2); Alkaline Phosphatase 53 U/L (40-130); Anion Gap 11.1 (5-19); Aspartate Amino Transferase 36 U/L (0-40); Blood Urea Nitrogen 24 mg/dL (8-23); Calcium 8.7 mg/dL (8.5-10.5); Carbon Dioxide 27 mmol/L (22-29); Chloride 106 mmol/L (98-107); Creatinine Clr Calc Pharmacy 58.4037; Globulin 2.1 g/dL (1.3-4.6); Glucose 105 mg/dL (65-115); Osmolality Calculated 294 mOsm/kg (285-295); Potassium 4.1 mmol/L (3.5-5.1); Sodium 140 mmol/L (136-145); Total Bilirubin 0.7 mg/dL (0.15-1.2)
[2024-07-07 16:52] LABS: Bilirubin Urine Negative (Negative); Blood Urine Negative (Negative); Glucose Urine UA Negative (Normal); Ketones Urine Trace (Negative); Leukocyte Esterase Urine Negative (Negative); Nitrate Urine Negative (Negative); Protein Urine Trace (Negative); Specific Gravity, Urine 1.026 (1.005-1.030); Urine Appearance Clear (CLEAR); Urine Color Dark Yellow (Yellow); pH Urine 5.5 (5-7)
[2024-07-07 16:57] LABS: Add Urine Microscopic? YES; Bacteria Urine None Seen /hpf; Hyaline Casts Urine 2.46 /lpf; RBC Urine 0-2 /hpf (0-2); Squamous Epithelial Cell Urine 0-5 /hpf (0-5); WBC Urine 0-5 /hpf (0-5)
[2024-07-07 16:59] VITALS: BP 135/83; PULSE 78; O2SAT 94
[2024-07-07 17:30] VITALS: BP 127/85; PULSE 84; O2SAT 94
[2024-07-07 18:17] VITALS: BP 135/84; PULSE 83; O2SAT 94
== END 2024-07-07 18:19 | disposition home or self-care (01) ==
PROVIDERS: Emergency Provider Family Medicine; PCP Family Medicine
DX: R19.7 Diarrhea, unspecified (principal); Z87.891 Personal history of nicotine dependence; I10 Essential (primary) hypertension
CPT/HCPCS: 36415; 71045; 80053; 81001; 85025; 93005; 99285

== ENCOUNTER → 2024-07-14 13:03 | Outpatient (BNVA) | payer OTHER, SELFPAY | PROVIDERS: PCP Family Medicine; Visit Provider Internal Medicine Rheumatology | DX: M35.3 Polymyalgia rheumatica (principal); R76.8 Other specified abnormal immunological findings in serum | CPT/HCPCS: 99214 ==

== ENCOUNTER → 2024-07-22 13:54 | Outpatient (BNVA) | payer OTHER, SELFPAY | PROVIDERS: PCP Family Medicine; Visit Provider Nurse Practitioner Family | DX: L21.8 Other seborrheic dermatitis (principal); L98.8 Other specified disorders of the skin and subcutaneous tissue; L81.4 Other melanin hyperpigmentation; L82.1 Other seborrheic keratosis; L57.8 Other skin changes due to chronic exposure to nonionizing radiation; Z08 Encounter for follow-up examination after completed treatment for malignant neoplasm; Z85.828 Personal history of other malignant neoplasm of skin; L57.0 Actinic keratosis | CPT/HCPCS: 17000; 99214 ==

== ENCOUNTER 2024-07-23 08:10 | Outpatient (CLI) | payer OTHER, SELFPAY ==
--- NOTE | 2024-07-23 08:30 | USCV_ITS ---
Neema Upton Age: 78 Gender: M : 1945 Exam Date: 07/23/2024 09:01 Ordering Phys: Alexandre Gaitan MD Technologist: CT [place] [facility] [place]: BP: 138 / 85 HR: 52 Rhythm: Sinus Technical Quality: Adequate MEASUREMENTS (Male / Female) Normal Values 2D ECHO LVOT Diameter 2.0 cm LV Ejection Fraction MOD 4C 52.9 % LV Ejection Fraction MOD 2C 59.3 % LV Ejection Fraction 2C AL 60.9 % LA Diameter 3.4 cm RA Systolic Volume 4C AL 63.9 ml RA Systolic Volume 4C MOD 58.4 ml LA Sys Volume AL 47.5 cm cubed LA Sys Volume Index AL 23.3 cm cubed/m squared Aorta at Sinotubular Diameter 2.6 cm M-MODE LA Ao Ratio MM 1.3 AV Cusp Separation MM 2.0 cm DOPPLER AV Peak Velocity 354.0 cm/s LVOT Peak Velocity 104.0 cm/s AV Area Cont Eq vti 2.6 cm squared AV Area Cont Eq pk 0.9 cm squared MV Peak Velocity 83.0 cm/s MV Area PHT 2.2 cm squared Mitral E to A Ratio 0.8 TV Peak Velocity 244.5 cm/s TR Peak Velocity 263.0 cm/s TR Peak Gradient 27.7 mmHg TV Peak E Velocity 59.0 cm/s PV Peak Velocity 93.5 cm/s FINDINGS Left Ventricle Left ventricle is normal in size. LV systolic function is normal with EF of 55-60%. No regional wall motion abnormalities are seen. Grade 1 diastolic dysfunction. Right Ventricle Normal in size and function. Right Atrium Normal in size Left Atrium Normal in size Mitral Valve Structurally normal mitral valve. Trace mitral regurgitation. Aortic Valve Structurally normal aortic valve. No significant stenosis. Mild to moderate aortic regurgitation. Tricuspid Valve Mild tricuspid regurgitation. Pulmonary artery systolic pressure is normal. Pulmonic Valve Not well visualized Pericardium Normal Aorta Dilated aortic root. IVC Not well visualized CONCLUSIONS LV systolic function is normal with EF of 55-60%. Grade 1 diastolic dysfunction. Trace mitral regurgitation Mild to moderate aortic regurgitation Mild tricuspid regurgitation Dilated aortic root. Cody Langford MD (Electronically Signed) Final Date: 27 July 2024 11:00 S
== END 2024-07-23 08:11 | disposition home or self-care (01) ==
LOC: RAD 08:11
PROVIDERS: PCP Family Medicine; Visit Provider Internal Medicine Rheumatology
DX: I35.0 Nonrheumatic aortic (valve) stenosis (principal); I50.30 Unspecified diastolic (congestive) heart failure; I77.810 Thoracic aortic ectasia; R79.89 Other specified abnormal findings of blood chemistry
CPT/HCPCS: 93306

== ENCOUNTER → 2024-07-30 13:21 | Outpatient (BNVA) | payer OTHER, SELFPAY | PROVIDERS: PCP Family Medicine; Referring Provider Internal Medicine Rheumatology; Visit Provider Psychiatry & Neurology Neurology | DX: M62.838 Other muscle spasm (principal); M47.819 Spondylosis without myelopathy or radiculopathy, site unspecified; S83.206A Unspecified tear of unspecified meniscus, current injury, right knee, initial encounter; G57.93 Unspecified mononeuropathy of bilateral lower limbs; R51.9 Headache, unspecified; G57.01 Lesion of sciatic nerve, right lower limb; G57.02 Lesion of sciatic nerve, left lower limb; R76.8 Other specified abnormal immunological findings in serum | CPT/HCPCS: 99212 ==

== ENCOUNTER 2024-07-31 08:00 | Oncology outpatient (recurring) (ONCR) | payer OTHER, SELFPAY ==
[2024-07-03 08:22] VITALS: BP 150/89; PULSE 78; RESP 16; TEMP 35.7; O2SAT 98
[2024-07-03 08:40] LABS: Basophils # 0.1 10^3/uL (0.0-0.1); Basophils % 0.6 %; Eosinophils # 0.1 10^3/uL (0.0-0.8); Eosinophils % 1.5 %; Hematocrit 47.7 % (37-53); Lymphocytes % 24.2 %; Mean Corpuscular HGB Conc 32.9 g/dL (30-55); Mean Corpuscular Hemoglobin 33.1 pg (27-33); Mean Corpuscular Volume 100.6 fl (82-101); Mean Platelet Volume 10.7 fL (7.4-10.4); Monocytes # 0.7 10^3/uL (0.2-0.9); Monocytes % 8.8 %; Neutrophils # 5.32 10^3/uL (1.8-7.7); Neutrophils % 64.5 %; Nucleated Red Blood Cells % 0 %; Platelet Count 176 10^3/cmm (157-399); Red Blood Count 4.74 10^6/uL (3.85-5.65); Red Cell Distribution Width 12.5 % (12.1-15.1); White Blood Count 8.25 10^3/uL (3.29-11.43)
[2024-07-03 08:45] LABS: Erythrocyte Sedimentation Rate 3 mm/hr (0-10)
[2024-07-03] MEDS: sodium chloride 0.9% 250 ML 75 ML IV (09:02)
[2024-07-03] MEDS: diphenhydrAMINE 50 mg/mL SDV 1mL IVP (09:03)
[2024-07-03] MEDS: acetaminophen 325 mg Tablet 650 MG PO (09:03)
[2024-07-03 09:08] LABS: Alanine Aminotransferase 20 U/L (0-41); Albumin Level 4.1 g/dL (3.5-5.2); Alkaline Phosphatase 53 U/L (40-130); Aspartate Amino Transferase 23 U/L (0-40); Creatinine Clr Calc Pharmacy 59.1139; Globulin 2.2 g/dL (1.3-4.6); Total Bilirubin 0.6 mg/dL (0.15-1.2); Total Protein 6.3 g/dL (6.6-8.7)
[2024-07-03] MEDS: methylPREDNISolone sod succ 40 mg/mL INJ IVP (09:11)
[2024-07-03] MEDS: tocilizumab 400 MG, tocilizumab 200 MG, tocilizumab 80 MG in sodium chloride 0.9% (100 ... 134.5 MG IV (10:12)
[2024-07-03 11:39] VITALS: BP 134/85; PULSE 60; RESP 16; TEMP 36.7; O2SAT 98
[2024-07-31] MEDS: acetaminophen 325 mg Tablet 650 MG PO (09:16)
[2024-07-31] MEDS: sodium chloride 0.9% 250 ML 75 ML IV (09:16)
[2024-07-31] MEDS: diphenhydrAMINE 50 mg/mL SDV 1mL IVP (09:19)
[2024-07-31] MEDS: methylPREDNISolone sod succ 40 mg/mL INJ IVP (09:22)
[2024-07-31] MEDS: tocilizumab 400 MG, tocilizumab 200 MG, tocilizumab 60 MG in sodium chloride 0.9% (100 ... 133 MG IV (09:50)
[2024-07-31 11:06] VITALS: BP 126/68; PULSE 68; RESP 16; TEMP 36.6; O2SAT 96
== END 2024-08-01 23:59 | disposition home or self-care (01) ==
PROVIDERS: Internal Medicine Rheumatology; PCP Family Medicine; Visit Provider Orthopaedic Surgery
DX: Z53.9 Procedure and treatment not carried out, unspecified reason; M31.6 Other giant cell arteritis; Z79.899 Other long term (current) drug therapy
CPT/HCPCS: 80076; 82565; 85025; 85651; 86140; 96365; 96375; 96413; J1200; J2919; J3262; J7050

== ENCOUNTER → 2024-08-01 08:20 | Outpatient (BNVA) | payer OTHER, SELFPAY | PROVIDERS: PCP Family Medicine; Visit Provider Family Medicine | DX: R21 Rash and other nonspecific skin eruption (principal) | CPT/HCPCS: 80053; 85025 ==

== ENCOUNTER 2024-08-28 12:35 | Oncology outpatient (recurring) (ONCR) | payer OTHER, SELFPAY ==
[2024-08-28 13:10] VITALS: BP 140/76; PULSE 55; RESP 18; TEMP 36.2; O2SAT 96
[2024-08-28] MEDS: acetaminophen 325 mg Tablet 650 MG PO (13:35)
[2024-08-28] MEDS: methylPREDNISolone sod succ 40 mg/mL INJ IVP (13:35)
[2024-08-28] MEDS: diphenhydrAMINE 50 mg/mL SDV 1mL IVP (13:35)
[2024-08-28] MEDS: tocilizumab 400 MG, tocilizumab 200 MG, tocilizumab 80 MG in sodium chloride 0.9% (100 ... 134 MG IV (14:06)
[2024-08-28 15:12] VITALS: BP 159/64; PULSE 59
== END 2024-08-29 23:59 | disposition home or self-care (01) ==
PROVIDERS: PCP Family Medicine; Visit Provider Orthopaedic Surgery
DX: M31.6 Other giant cell arteritis (principal); Z79.899 Other long term (current) drug therapy
CPT/HCPCS: 96365; 96375; J1200; J2919; J3262

== ENCOUNTER → 2024-09-18 14:13 | Outpatient (BNVA) | payer OTHER, SELFPAY | PROVIDERS: PCP Family Medicine; Visit Provider Dermatology | DX: D22.39 Melanocytic nevi of other parts of face (principal); L98.8 Other specified disorders of the skin and subcutaneous tissue; L81.4 Other melanin hyperpigmentation; L72.0 Epidermal cyst; Z08 Encounter for follow-up examination after completed treatment for malignant neoplasm; Z85.828 Personal history of other malignant neoplasm of skin; D48.5 Neoplasm of uncertain behavior of skin; L57.0 Actinic keratosis | CPT/HCPCS: 11102; 17000; 99213 ==

== ENCOUNTER 2024-09-29 09:41 | Oncology outpatient (recurring) (ONCR) | payer OTHER, SELFPAY ==
[2024-09-29] MEDS: sodium chloride 0.9% 250 ML 75 ML IV (10:21)
[2024-09-29] MEDS: acetaminophen 325 mg Tablet 650 MG PO (10:24)
[2024-09-29] MEDS: methylPREDNISolone sod succ 40 mg/mL INJ IVP (10:25)
[2024-09-29 10:27] LABS: Basophils # 0.1 10^3/uL (0.0-0.1); Eosinophils # 0.2 10^3/uL (0.0-0.8); Eosinophils % 3.3 %; Hematocrit 47.6 % (37-53); Lymphocytes # 1.6 10^3/uL (0.8-4.8); Lymphocytes % 27.2 %; Mean Corpuscular HGB Conc 33.4 g/dL (30-55); Mean Corpuscular Volume 98.8 fl (82-101); Mean Platelet Volume 11.4 fL (7.4-10.4); Monocytes # 0.5 10^3/uL (0.2-0.9); Neutrophils # 3.55 10^3/uL (1.8-7.7); Neutrophils % 59.3 %; Nucleated Red Blood Cells % 0 %; Platelet Count 161 10^3/cmm (157-399); Red Blood Count 4.82 10^6/uL (3.85-5.65); Red Cell Distribution Width 12.4 % (12.1-15.1); White Blood Count 5.99 10^3/uL (3.29-11.43)
[2024-09-29 10:32] LABS: Erythrocyte Sedimentation Rate 1 mm/hr (0-10)
[2024-09-29] MEDS: diphenhydrAMINE 50 mg/mL SDV 1mL IVP (10:33)
[2024-09-29 10:43] LABS: Alanine Aminotransferase 16 U/L (0-41); Albumin Level 4.1 g/dL (3.5-5.2); Alkaline Phosphatase 94 U/L (40-130); Creatinine Clr Calc Pharmacy 65.0253; Globulin 2.1 g/dL (1.3-4.6); Total Bilirubin 0.6 mg/dL (0.15-1.2); Total Protein 6.2 g/dL (6.6-8.7)
[2024-09-29 10:45] LABS: Aspartate Amino Transferase 23 U/L (0-40)
[2024-09-29 10:58] VITALS: BP 140/89; PULSE 87; RESP 17; TEMP 35.9; O2SAT 96
[2024-09-29] MEDS: tocilizumab 400 MG, tocilizumab 200 MG, tocilizumab 80 MG in sodium chloride 0.9% (100 ... 134.5 MG IV (11:12)
[2024-09-29 12:15] VITALS: BP 129/79; PULSE 79; TEMP 36.4; O2SAT 98
== END 2024-09-29 23:59 | disposition home or self-care (01) ==
PROVIDERS: Internal Medicine Rheumatology; PCP Family Medicine; Visit Provider Orthopaedic Surgery
DX: M31.6 Other giant cell arteritis (principal); M85.80 Other specified disorders of bone density and structure, unspecified site; Z79.899 Other long term (current) drug therapy
CPT/HCPCS: 80076; 82565; 85025; 85651; 86140; 96375; 96413; J1200; J2919; J3262; J7050; J9999

== ENCOUNTER → 2024-10-22 14:05 | Outpatient (BNVA) | payer OTHER, SELFPAY | PROVIDERS: PCP Family Medicine; Visit Provider Internal Medicine Rheumatology | DX: M35.3 Polymyalgia rheumatica (principal); R76.8 Other specified abnormal immunological findings in serum | CPT/HCPCS: 99214 ==

== ENCOUNTER 2024-10-27 08:39 | Oncology outpatient (recurring) (ONCR) | payer OTHER, SELFPAY ==
[2024-10-27] MEDS: sodium chloride 0.9% 250 ML 75 ML IV (09:29)
[2024-10-27] MEDS: methylPREDNISolone sod succ 40 mg/mL INJ IVP (09:33)
[2024-10-27] MEDS: acetaminophen 325 mg Tablet 650 MG PO (09:34)
[2024-10-27] MEDS: diphenhydrAMINE 50 mg/mL SDV 1mL IVP (09:38)
[2024-10-27 09:53] VITALS: BP 138/62; PULSE 54; RESP 17; TEMP 36.2; O2SAT 97
[2024-10-27] MEDS: TOCILIZUMAB IV (10:15)
[2024-10-27] MEDS: SODIUM CHLORIDE 0.9% IV (10:15)
[2024-10-27 11:29] VITALS: BP 152/82; PULSE 56; RESP 17; TEMP 36.2; O2SAT 98
== END 2024-10-29 23:59 | disposition home or self-care (01) ==
PROVIDERS: PCP Family Medicine; Visit Provider Orthopaedic Surgery
DX: M31.6 Other giant cell arteritis (principal); Z79.899 Other long term (current) drug therapy
CPT/HCPCS: 96375; 96413; A4222; J1200; J2919; J3262; J7050; J9999

== ENCOUNTER 2024-12-29 08:30 | Oncology outpatient (recurring) (ONCR) | payer OTHER, SELFPAY ==
[2024-12-01] MEDS: sodium chloride 0.9% 250 ML 75 ML IV (10:30)
[2024-12-01] MEDS: acetaminophen 325 mg Tablet 650 MG PO (10:31)
[2024-12-01 10:32] LABS: Basophils % 0.6 %; Eosinophils # 0.2 10^3/uL (0.0-0.8); Eosinophils % 3.8 %; Hematocrit 43.8 % (37-53); Lymphocytes # 1.3 10^3/uL (0.8-4.8); Lymphocytes % 25.5 %; Mean Corpuscular HGB Conc 32.2 g/dL (30-55); Mean Corpuscular Hemoglobin 32.4 pg (27-33); Mean Corpuscular Volume 100.7 fl (82-101); Mean Platelet Volume 11.7 fL (7.4-10.4); Monocytes # 0.4 10^3/uL (0.2-0.9); Monocytes % 7.7 %; Neutrophils # 3.08 10^3/uL (1.8-7.7); Neutrophils % 62.2 %; Nucleated Red Blood Cells % 0 %; Platelet Count 136 10^3/cmm (157-399); Red Blood Count 4.35 10^6/uL (3.85-5.65); Red Cell Distribution Width 12.8 % (12.1-15.1); White Blood Count 4.95 10^3/uL (3.29-11.43)
[2024-12-01] MEDS: diphenhydrAMINE 50 mg/mL SDV 1mL IVP (10:32)
[2024-12-01] MEDS: methylPREDNISolone sod succ 40 mg/mL INJ IVP (10:32)
[2024-12-01 10:35] LABS: Erythrocyte Sedimentation Rate < 1 mm/hr (0-10)
[2024-12-01 10:45] LABS: Alanine Aminotransferase 14 U/L (0-41); Albumin Level 3.9 g/dL (3.5-5.2); Alkaline Phosphatase 75 U/L (40-130); Globulin 1.8 g/dL (1.3-4.6); Total Bilirubin 0.5 mg/dL (0.15-1.2); Total Protein 5.7 g/dL (6.6-8.7)
[2024-12-01] MEDS: tocilizumab 400 MG, tocilizumab 200 MG, tocilizumab 80 MG in sodium chloride 0.9% (100 ... 134 MG IV (10:46)
[2024-12-01 10:48] LABS: Aspartate Amino Transferase 22 U/L (0-40)
[2024-12-01 12:00] VITALS: BP 159/66; PULSE 50; RESP 17; TEMP 36.3; O2SAT 96
[2024-12-29 08:28] VITALS: BP 178/69; PULSE 55; RESP 16; TEMP 36.6; O2SAT 98
[2024-12-29] MEDS: sodium chloride 0.9% 250 ML 75 ML IV (08:57)
[2024-12-29] MEDS: diphenhydrAMINE 50 mg/mL SDV 1mL IVP (09:00)
[2024-12-29] MEDS: acetaminophen 325 mg Tablet 650 MG PO (09:01)
[2024-12-29] MEDS: methylPREDNISolone sod succ 40 mg/mL INJ IVP (09:07)
[2024-12-29 10:56] VITALS: BP 147/74; PULSE 51; TEMP 36.2; O2SAT 97
== END 2024-12-29 23:59 | disposition home or self-care (01) ==
PROVIDERS: PCP Family Medicine; Visit Provider Internal Medicine Rheumatology
DX: M31.6 Other giant cell arteritis; Z79.899 Other long term (current) drug therapy; Z53.9 Procedure and treatment not carried out, unspecified reason
CPT/HCPCS: 80076; 82565; 85025; 85651; 86140; 96375; 96413; J1200; J2919; J3262; J7050; J9999; Q5135

== ENCOUNTER → 2025-01-05 08:41 | Outpatient (BNVA) | payer OTHER, SELFPAY | PROVIDERS: PCP Family Medicine; Visit Provider Psychiatry & Neurology Neurology | DX: G57.01 Lesion of sciatic nerve, right lower limb (principal); M62.838 Other muscle spasm; M47.819 Spondylosis without myelopathy or radiculopathy, site unspecified; M54.2 Cervicalgia; R51.9 Headache, unspecified; G57.93 Unspecified mononeuropathy of bilateral lower limbs; G57.02 Lesion of sciatic nerve, left lower limb; R76.8 Other specified abnormal immunological findings in serum | CPT/HCPCS: 99212 ==

== ENCOUNTER → 2025-01-13 13:50 | Outpatient (BNVA) | payer OTHER, SELFPAY | PROVIDERS: PCP Family Medicine; Visit Provider Nurse Practitioner Family | DX: M54.2 Cervicalgia (principal); L82.1 Other seborrheic keratosis; L57.8 Other skin changes due to chronic exposure to nonionizing radiation; Z08 Encounter for follow-up examination after completed treatment for malignant neoplasm; Z85.828 Personal history of other malignant neoplasm of skin; L57.0 Actinic keratosis | CPT/HCPCS: 17000; 99213; 99214 ==

== ENCOUNTER → 2025-01-19 16:19 | Outpatient (BNVA) | payer MEDICARE, SELFPAY | PROVIDERS: PCP Family Medicine; Visit Provider Family Medicine | DX: D75.89 Other specified diseases of blood and blood-forming organs (principal); M85.80 Other specified disorders of bone density and structure, unspecified site; D64.9 Anemia, unspecified | CPT/HCPCS: 80053; 82306; 82607; 82728; 83540; 85025 ==

== ENCOUNTER 2025-01-26 09:30 | Oncology outpatient (recurring) (ONCR) | payer OTHER, SELFPAY ==
--- NOTE | 2025-01-07 15:15 | MR_ITS ---
WS: [id number] MRI HEAD WITH CONTRAST TECHNIQUE: Sagittal T1, T2 axial, T2 axial FLAIR, axial susceptibility weighted imaging, axial diffusion weighted images, and coronal T2 images were obtained. Pre and post-T1 axial and post T1 coronal images. ADC and FSPGR images. CLINICAL INFORMATION: R51.9 - Headache, unspecified COMPARISON: None. FINDINGS: No abnormal intracranial enhancement. No evidence of restricted diffusion to suggest acute ischemia. Moderate small vessel changes. Moderate parenchymal volume loss. Normal posterior fossa. Normal vascular flow voids at the skull base. No extra-axial fluid collections. No evidence of mass or mass effect. Small retention cyst LEFT maxillary sinus. Paranasal sinuses are well aerated. Mastoid air cells are well aerated. No hemosiderin. Normal optic chiasm and pituitary infundibulum. Moderate symmetric atrophy temporal lobes and hippocampal formations. MR/MR head wo/w con [id number] IMPRESSION: 1. No evidence of restricted diffusion to suggest acute ischemia. 2. Moderate small vessel changes with moderate parenchymal volume loss. 3. No abnormal gadolinium enhancement. 4. No hemosiderin on the susceptibly weighted images.
[2025-01-07] MEDS: gadobenate dimeglumine 20 mL vial 18 ML IV (15:59)
[2025-01-26] MEDS: diphenhydrAMINE 50 mg/mL SDV 1mL IVP (10:22)
[2025-01-26] MEDS: methylPREDNISolone sod succ 40 mg/mL INJ IVP (10:29)
[2025-01-26 10:32] VITALS: BP 166/87; PULSE 73; RESP 16; TEMP 36.6; O2SAT 96
[2025-01-26] MEDS: [UNRECOGNIZED DRUG - OTHER] IV (10:59)
[2025-01-26] MEDS: TOCILIZUMAB AAZG IV (10:59)
[2025-01-26 12:18] VITALS: BP 150/88; PULSE 60; RESP 18; TEMP 36.4; O2SAT 97
== END 2025-01-29 23:59 | disposition home or self-care (01) ==
PROVIDERS: PCP Family Medicine; Visit Provider Internal Medicine Rheumatology
DX: Z53.9 Procedure and treatment not carried out, unspecified reason; M31.6 Other giant cell arteritis; Z79.899 Other long term (current) drug therapy
CPT/HCPCS: 70553; 96375; 96413; J1200; J2919; J7050; J9999; Q5135

== ENCOUNTER → 2025-01-27 08:36 | Outpatient (BNVA) | payer OTHER, SELFPAY | PROVIDERS: PCP Family Medicine; Visit Provider Anesthesiology Pain Medicine | DX: M54.81 Occipital neuralgia (principal); M54.2 Cervicalgia; M35.3 Polymyalgia rheumatica; R68.89 Other general symptoms and signs; R76.8 Other specified abnormal immunological findings in serum | CPT/HCPCS: 64405; 84443; 85025; 99213; J1010; J3490 ==

== ENCOUNTER 2025-02-23 07:40 | Oncology outpatient (recurring) (ONCR) | payer OTHER, SELFPAY ==
[2025-02-23] MEDS: methylPREDNISolone sod succ 40 mg/mL INJ IVP (08:31)
[2025-02-23] MEDS: diphenhydrAMINE 50 mg/mL SDV 1mL IVP (08:31)
[2025-02-23] MEDS: [UNRECOGNIZED DRUG - OTHER] IV (08:47)
[2025-02-23] MEDS: TOCILIZUMAB AAZG IV (08:47)
[2025-02-23 10:04] VITALS: BP 132/66; PULSE 54; RESP 16; O2SAT 93
== END 2025-03-01 23:59 | disposition home or self-care (01) ==
PROVIDERS: PCP Family Medicine; Visit Provider Internal Medicine Rheumatology
DX: M31.6 Other giant cell arteritis (principal); Z79.899 Other long term (current) drug therapy
CPT/HCPCS: 96375; 96413; J1200; J2919; J9999; Q5135

== ENCOUNTER → 2025-03-03 12:51 | Outpatient (BNVA) | payer OTHER, SELFPAY | PROVIDERS: PCP Family Medicine; Visit Provider Internal Medicine Rheumatology | DX: M35.3 Polymyalgia rheumatica (principal); R76.8 Other specified abnormal immunological findings in serum | CPT/HCPCS: 99214 ==

== ENCOUNTER 2025-03-23 07:47 | Oncology outpatient (recurring) (ONCR) | payer OTHER, SELFPAY ==
[2025-03-23 08:31] LABS: Hematocrit 46.6 % (37-53); Hemoglobin 15.60 g/dL (11.27-16.99); Mean Corpuscular HGB Conc 33.5 g/dL (30-55); Mean Corpuscular Hemoglobin 32.6 pg (27-33); Mean Corpuscular Volume 97.3 fl (82-101); Nucleated Red Blood Cells % 0 %; Platelet Count 160 10^3/cmm (157-399); Red Blood Count 4.79 10^6/uL (3.85-5.65); White Blood Count 6.34 10^3/uL (3.29-11.43)
[2025-03-23] MEDS: diphenhydrAMINE 50 mg/mL SDV 1mL IVP (08:42)
[2025-03-23] MEDS: methylPREDNISolone sod succ 40 mg/mL INJ IVP (08:48)
[2025-03-23 08:49] LABS: Alanine Aminotransferase 15 U/L (0-41); Albumin Level 4.3 g/dL (3.5-5.2); Alkaline Phosphatase 75 U/L (40-130); Aspartate Amino Transferase 21 U/L (0-40); Creatinine Clr Calc Pharmacy 60.9498; Globulin 2.1 g/dL (1.3-4.6); Total Protein 6.4 g/dL (6.6-8.7)
[2025-03-23 08:52] VITALS: BP 152/95; PULSE 85; RESP 16; TEMP 35.7; O2SAT 97
[2025-03-23] MEDS: TOCILIZUMAB AAZG IV (09:26)
[2025-03-23] MEDS: [UNRECOGNIZED DRUG - OTHER] IV (09:26)
[2025-03-23 10:35] VITALS: BP 135/74; PULSE 70; RESP 17; TEMP 36.2; O2SAT 94
== END 2025-03-31 23:59 | disposition home or self-care (01) ==
PROVIDERS: PCP Family Medicine; Visit Provider Internal Medicine Rheumatology
DX: M31.6 Other giant cell arteritis (principal); Z79.899 Other long term (current) drug therapy
CPT/HCPCS: 80076; 82565; 85025; 85651; 86140; 96375; 96413; J1200; J2919; J7050; J9999; Q5135

== ENCOUNTER 2025-04-22 07:55 | Oncology outpatient (recurring) (ONCR) | payer OTHER, SELFPAY ==
[2025-04-22 08:14] VITALS: BP 130/89; PULSE 98; RESP 16; TEMP 36.2; O2SAT 96
[2025-04-22] MEDS: diphenhydrAMINE 50 mg/mL SDV 1mL IVP (08:28)
[2025-04-22] MEDS: methylPREDNISolone sod succ 40 mg/mL INJ IVP (08:32)
[2025-04-22] MEDS: TOCILIZUMAB AAZG IV (09:02)
[2025-04-22] MEDS: [UNRECOGNIZED DRUG - OTHER] IV (09:02)
[2025-04-22 10:10] VITALS: BP 99/66; PULSE 92; RESP 18; TEMP 37; O2SAT 93
== END 2025-05-01 23:59 | disposition home or self-care (01) ==
PROVIDERS: PCP Family Medicine; Visit Provider Internal Medicine Rheumatology
DX: Z53.9 Procedure and treatment not carried out, unspecified reason; M31.6 Other giant cell arteritis; Z79.899 Other long term (current) drug therapy
CPT/HCPCS: 96375; 96413; J1200; J2919; J7050; J9999; Q5135

== ENCOUNTER 2025-05-20 07:58 | Oncology outpatient (recurring) (ONCR) | payer OTHER, SELFPAY ==
[2025-05-20] MEDS: diphenhydrAMINE 50 mg/mL SDV 1mL IVP (08:39)
[2025-05-20] MEDS: methylPREDNISolone sod succ 40 mg/mL INJ IVP (08:42)
[2025-05-20 08:46] LABS: Hematocrit 48.5 % (37-53); Hemoglobin 15.70 g/dL (11.27-16.99); Mean Corpuscular HGB Conc 32.4 g/dL (30-55); Mean Corpuscular Hemoglobin 32.6 pg (27-33); Mean Corpuscular Volume 100.6 fl (82-101); Nucleated Red Blood Cells % 0 %; Platelet Count 163 10^3/cmm (157-399); Red Blood Count 4.82 10^6/uL (3.85-5.65); White Blood Count 5.88 10^3/uL (3.29-11.43)
[2025-05-20] MEDS: [UNRECOGNIZED DRUG - OTHER] IV (09:05)
[2025-05-20] MEDS: TOCILIZUMAB AAZG IV (09:05)
[2025-05-20 09:10] LABS: Alanine Aminotransferase 17 U/L (0-41); Albumin Level 4.2 g/dL (3.5-5.2); Alkaline Phosphatase 73 U/L (40-130); Aspartate Amino Transferase 18 U/L (0-40); Globulin 1.9 g/dL (1.3-4.6); Total Protein 6.1 g/dL (6.6-8.7)
[2025-05-20 10:30] VITALS: BP 148/79; PULSE 68; RESP 17; TEMP 35.8; O2SAT 99
== END 2025-05-31 23:59 | disposition home or self-care (01) ==
PROVIDERS: PCP Family Medicine; Visit Provider Internal Medicine Rheumatology
DX: Z53.9 Procedure and treatment not carried out, unspecified reason; M31.6 Other giant cell arteritis; Z79.899 Other long term (current) drug therapy
CPT/HCPCS: 80076; 82565; 85025; 85651; 86140; 96375; 96413; J1200; J2919; J7050; J9999; Q5135

== ENCOUNTER → 2025-06-10 09:28 | Outpatient (BNVA) | payer OTHER, SELFPAY | PROVIDERS: PCP Family Medicine; Visit Provider Nurse Practitioner Family | DX: D22.39 Melanocytic nevi of other parts of face (principal); L81.4 Other melanin hyperpigmentation; L57.8 Other skin changes due to chronic exposure to nonionizing radiation; Z08 Encounter for follow-up examination after completed treatment for malignant neoplasm; Z85.828 Personal history of other malignant neoplasm of skin | CPT/HCPCS: 99213 ==

== ENCOUNTER 2025-06-17 07:53 | Oncology outpatient (recurring) (ONCR) | payer OTHER, SELFPAY ==
[2025-06-17 08:05] VITALS: BP 146/90; PULSE 99; TEMP 36.1; O2SAT 96
[2025-06-17] MEDS: diphenhydrAMINE 50 mg/mL SDV 1mL IVP (08:28)
[2025-06-17] MEDS: methylPREDNISolone sod succ 40 mg/mL INJ IVP (08:33)
[2025-06-17] MEDS: TOCILIZUMAB AAZG IV (09:02)
[2025-06-17] MEDS: [UNRECOGNIZED DRUG - OTHER] IV (09:02)
[2025-06-17 10:12] VITALS: BP 131/80; PULSE 94; TEMP 36.6; O2SAT 96
== END 2025-07-01 23:59 | disposition home or self-care (01) ==
PROVIDERS: PCP Family Medicine; Visit Provider Internal Medicine Rheumatology
DX: M31.6 Other giant cell arteritis (principal); Z79.899 Other long term (current) drug therapy
CPT/HCPCS: 96375; 96413; J1200; J2919; J7050; J9999; Q5135